=== PATIENT | female | born 1950 | race Caucasian/White ===

== ENCOUNTER 2024-08-01 08:58 | Day surgery (SDC) | payer MEDICARE, SELFPAY ==
[2024-08-01] VITALS (10 sets, daily range): BP systolic 113–183; BP diastolic 56–86; BMI 38.0
[2024-08-01 09:40] LABS: Hematocrit 43.8 % (37.0-47.0); Hemoglobin 15.1 g/dL (12.0-16.0); Mean Corp Hgb Conc. 34.5 g/dL (33.0-37.0); Mean Corpuscular Hgb 28.9 pg (27.0-31.0); Mean Corpuscular Volume 83.7 fL (81.0-99.0); Mean Platelet Volume 10.5 fL (7.4-10.4); Platelet Count 289 10^3/uL (130-400); Red Blood Cell Count 5.23 10^6/uL (4.20-5.40); Red Cell Dist. Width 12.7 % (11.5-14.5); White Blood Cell Count 12.1 10^3/uL (4.8-10.8)
[2024-08-01 09:55] LABS: Glucose - Point of Care 207 mg/dl (70-99)
[2024-08-01 10:17] LABS: Blood Urea Nitrogen 16 mg/dl (7-17); Calcium 10.3 mg/dl (8.4-10.2); Carbon Dioxide 22 mmol/L (22-30); Chloride 104 mmol/L (98-107); Estimated Creatinine Clearance 80 ml/min; Glucose 254 mg/dl (70-99); Potassium 4.7 mmol/L (3.5-5.1); Sodium 137 mmol/L (135-145); eGFR > 60.00
[2024-08-01] MEDS: LOW STRENGTH ASPIRIN 324 MG PO (12:40)
[2024-08-01 13:41] LABS: ACT-LR - POC 231 Seconds (116-155)
[2024-08-01 14:06] LABS: Glucose - Point of Care 186 mg/dl (70-99)
--- NOTE | 2024-08-01 15:20 | ITS.CL.CATH ---
Fire Safety Director - Catheterization
Cardiac Catheterization
Procedure Report:
LEFT HEART CATHETERIZATION
Date of Procedure: August 01, 2024
Referring: Ken Tate
PROCEDURES:
1. Left heart catheterization, coronary angiogram.
2. Moderate sedation.
3. Functional physiologic testing using IFR of proximal to mid LAD
INDICATION: Abnormal Stress Test
ACCESS: Right radial artery, 6Fr. sheath, under US guidance.
HEMODYNAMICS : (mmHg)
AO (s/d) : 149/71
LVEDP : 23
Upon catheter pullback, invasive mean transaortic gradient is estimated at 36 mmHg, concerning for possible moderate aortic stenosis.
CORONARY FINDINGS
Dominance: Right
Left Main Trunk (LMT): Large caliber vessel that gives rise to the LAD and LCx branches and is free of angiographic disease.
Left Anterior Descending Artery (LAD): Large caliber vessel that gives off 1 major diagonal branch as it courses along the anterior inter-ventricular groove before wrapping around the cardiac apex. Proximal to mid LAD has diffusely heavily
calcified 50% stenosis with focal eccentric napkin ring lesion in mid portion with iFR positve at 0.82. Distal LAD has 70% stenosis.
Left Circumflex Artery (LCx): Medium caliber vessel that gives off two major obtuse marginal (OM) branches as it courses along the atrio-ventricular (AV) groove. OM1 is a very small caliber vessel. Proximal LCx has eccentric 70% stenosis and
distal LCX into OM2 has 90% stenosis with good distal target.
Right Coronary Artery (RCA): Large caliber dominant vessel that gives rise to the posterior descending artery (RPDA) and postero-lateral ventricular (RPLV) branches distally. Moderately tortuous RCA with 75-80% proximal RCA stenosis and long
tubular 60-70% stenosis in distal portion.
HEMODYNAMIC ASSESSMENT OF THE prox to mid LAD WITH A Newsle OMNI WIRE: The origin of the LCA was cannulated with a 6 Fr EBU 3.5 guide catheter. Intravenous heparin was administered and the ACT was followed during the procedure. Two hundred
micrograms of intracoronary nitroglycerin was given through the guide catheter. A Utterz Omni wire was advanced to the guide catheter tip and normalized just outside the guide catheter. The Omni wire was then carefully manipulated across the
stenosis in the prox to mid LAD with the iFR bwlow the ischemic threshold serially measuring 0.82, 0.83, 0.83. The Omni wire was then pulled back to the guide catheter where the Pd/Pa measured 1.0 confirming no baseline drift in pressure readings.
SEDATION: 47 minutes of procedural sedation was utilized. IV Midazolam and IV Fentanyl were administered. An independent medical equipment technician was present to assist with and help manage the patient's level of consciousness and physiologic status.
RADIATION SUMMARY: Fluoro Time (min): 4.7, Dose (mGy): 424, DAP (Gy.cm2) : 21.1
Closure Device: There were no immediate intra-procedural complications. The sheath was pulled in the laboratory sample carrier and a vascular-band applied to the right wrist for radial artery hemostasis using the patent hemostasis technique.
CONCLUSIONS
1. Multivessel CAD with iFR positive LAD.
2. Elevated LVEDP.
RECOMMENDATIONS
1. Wean radial band per protocol. Monitor right hand perfusion and for bleeding from the radial site following removal of the vascular-band following trans-radial access.
2. Continue aggressive medical therapy and risk factor modification for secondary CAD prevention.
3. Hydrate with normal saline to mitigate the risk of contrast-induced acute kidney injury.
4. CT surgery consult with consideration of CABG to LAD, D1, OM2, RPDA and RPL.
5. Follow-up with Dr. Ken Tate as outpatient.
Copy to: Ken Tate
Fela Farias MD, [facility], [facility]
[2024-08-01] MEDS: LASIX 20 MG IV (16:37)
== END 2024-08-01 17:23 | disposition home or self-care (01) ==
LOC: CATH 08:58
PROVIDERS: ATTENDING PHYSICIAN Internal Medicine Interventional Cardiology; FAMILY PHYSICIAN Internal Medicine; OTHER PHYSICIAN Internal Medicine Cardiovascular Disease
DX: I25.10 Atherosclerotic heart disease of native coronary artery without angina pectoris (principal); Z79.4 Long term (current) use of insulin; Z79.890 Hormone replacement therapy; Z79.82 Long term (current) use of aspirin; Z79.899 Other long term (current) drug therapy; E11.9 Type 2 diabetes mellitus without complications
CPT/HCPCS: 93799; 99152; 99153; 80048; 82962; 85027; 85347; 93005; 93458; C1769; C1894; Q9967

== ENCOUNTER 2024-09-03 09:54 | Inpatient (IN) | payer MEDICARE, SELFPAY ==
[2024-09-03] VITALS (8 sets, daily range): BP systolic 109–142; BP diastolic 41–77; BMI 39.2
--- NOTE | 2024-09-03 11:14 | HPS.HSE ---
Addendum entered and electronically signed by Nomi Farias MD 09/03/24 14:01:
I have personally supervised the history, physical exam, medical decision-making, and care plan for this patient in conjunction with the resident. I have reviewed and discussed the resident�s documentation and findings. I confirm that this note
accurately reflects my supervision and input in the care of this patient.
74-year-old female with extensive past medical history who has been running from transfer from [facility]. Patient with extensive cardiac history who presented to outside hospital with chest pain and was started on nitroglycerin
and heparin infusion. Patient remained with persistent chest pain. Patient was transferred over here for further aggressive medical management for possible CABG with aortic valve replacement versus high risk PCI. Patient is currently sitting in
chair. Patient remains on nitroglycerin drip. Patient remains with persistent chest pain. States 4 out of 10. Left substernal. No aggravating or alleviating factor. Denies any shortness of breath. Denies any PND orthopnea.
General: Well Developed, Well Nourished, No Apparent Distress and Comfortable, morbidly obese
Respiratory: Clear
Cardiac: S1/S2, Regular Rhythm and Murmur
GI: Soft, Non Tender, Non Distended and Normal Bowel Sounds
Musculoskeletal: No Clubbing and No Cyanosis
Skin: Warm and Dry
Neuro: Awake, Alert, Oriented and AO x 3
Psych: Calm
Impression
NSTEMI
Multivessel CAD
Diabetes mellitus on insulin pump
Hyperlipidemia
Primary hypertension
Aortic stenosis
Endometrial and uterine cancer status post hysterectomy
RATNA on CPAP
Morbid obesity due to excess calorie affects all aspects of medical care
Mild hyponatremia
Plan
Continue with nitroglycerin and heparin infusion for now
Morphine trial for additional pain control if needed
Continue with aspirin and Lipitor
Continue with beta-roman
Hold losartan if with significant contrast exposure for additional imaging for preop testing
Continue with beta-roman
Check lipid panel and A1c
Check urine studies and serum also
Cardiology and CT surgery evaluation
Diabetic nurse practitioner evaluation has on insulin pump
DVT prophylaxis on heparin infusion
I spent a total of 80 minutes with the patient or on the floor. More than 50% of this time involved counseling and coordination of care.
Original Note:
Family Physician
-
Family Physician: INTERVIEWE UNKNOWN - PT NOT
Chief Complaint
-
Chest pain
History of Present Illness
This is a 74-year-old female with past medical history of diabetes, hypertension, dyslipidemia, aortic stenosis, vasovagal syncope, asthma, endometrial and uterine cancer s/p hysterectomy 2002, multivessel CAD with IFR positive LAD, hypothyroidism,
obstructive sleep apnea on CPAP who presents as a transfer from [facility] with ongoing chest pain. History obtained from patient at bedside and from transfer records.
The patient reports that her chest pain started yesterday(09/02) morning. She was scheduled to get a Chest CT scan yesterday as part of her evaluation for valve replacement, and took prednisone tab the day prior. In the AM yesterday, she experienced
a sharp chest pain. Chest pain was radiating to her neck, was intermittent initially but gradually worsened and stayed persistent. She contacted her CT surgeons office and supervisor farm equipment maintenance due to the pain and she was advised to go to come to for
evaluation. Ambulance services took patient to [facility] due to closer proximity.
Pertaining to her history, the patient had a cardiac catheterization on 08/01/2024 for reported multivessel CAD with IFR positive LAD. She was further evaluated outpatient by CT surgery Dr. Malloy for AVR and CABG which was initially scheduled for
September 16.
At [facility], she was started on nitro drip, heparin drip, and continued on home aspirin 81 mg oral daily, atorvastatin 80 mg, levothyroxine 50 mcg. Her metoprolol dosage was switched from 25 mg oral daily to 12.5 mg twice daily.
She was transferred to [facility] this morning.
At bedside today, the patient admits chest pain currently ongoing. Rates the pain as a 4 out of 10 that does not radiate anywhere else. She admits to mild fatigue. Denies lightheadedness, syncope, palpitation.
Medical History
Past Medical History
Past Medical History: Reports Other
Additional Past Medical History:
Neck and back pain, neuropathy, asthma, RATNA/CPAP, hypertension, constipation, IBS, laryngeal pharyngeal reflux, recurrent UTIs, osteoarthritis, type 1 diabetes mellitus, hypothyroidism, cataracts, partial vitreous detachment with neovascularization
on the right, endometrial and uterine cancer s/p hysterectomy 2002, multivessel CAD with IFR positive LAD, hyperlipidemia, aortic stenosis, vasovagal syncope, gastroenteritis
Past Surgical History: Reports Other (Hysterectomy, umbilical hernia repair, removal of right parotid tumor, removal of growths in the ear, sinus surgery)
Social History
Tobacco: Non-smoker
Alcohol: Occasional
Drug: None
Living: Alone
Family History
Family History: Other (Father, 75 years, CVA, aneurysms. Mother 83 years, A-fib, heart disease)
Allergies / Home Medications
Allergies reflects when Allergies were last updated in [facility].
Home Medications with original date entered in [facility]
Allergy/Medication List:
Allergies
Allergy/AdvReac Type Severity Reaction Status Date / Time
Cephalosporins Allergy Severe Swelling Verified 08/01/24 10:07
Iodinated Contrast Media Allergy Severe Shortness Verified 08/01/24 10:07
of Breath
adhesive Allergy Intermediate Rash Verified 08/01/24 10:07
phenobarbital Allergy Unknown Unknown Verified 08/01/24 10:07
codeine Allergy Unknown Verified 08/01/24 10:07
insulin lispro (From Humalog Allergy Rash Verified 08/01/24 10:07
U-100 Insulin)
shellfish derived Allergy Unknown Verified 08/01/24 10:07
diphenhydramine (From AdvReac TACHYCARDIA Verified 08/01/24 10:07
Benadryl)
Home Medications
aspirin 81 mg tablet,delayed release 81 mg PO DAILY 08/01/24
atorvastatin 80 mg tablet (Lipitor) 80 mg PO HS #30 tabs 08/01/24
cetirizine 10 mg tablet (Zyrtec) 10 mg PO DAILY PRN ALLERGIES 08/01/24
insulin aspart (B3)(U-100) 100 unit/mL (1.6 mL) subcut pump cartridge (Fiasp Pumpcart) 1 sliding scale dose SC DIRECTED 08/01/24
levothyroxine 25 mcg tablet 25 mcg PO DAILY 08/01/24
losartan 25 mg tablet 100 mg PO DAILY 08/01/24
metoprolol succinate 25 mg tablet,extended release 24 hr (Toprol XL) 25 mg PO DAILY #30 tabs 08/01/24
montelukast 10 mg tablet 10 mg PO DAILY 08/01/24
pantoprazole 40 mg tablet,delayed release 40 mg PO DAILY 08/01/24
potassium chloride 10 mEq tablet,extended release (Klor-Con) 10 meq PO DAILY 08/01/24
Review of Systems
-
History Source: Patient
A 12 point ROS was completed and negative except as noted: Yes
Constitutional: Reports See HPI
Respiratory: Reports No Symptoms
Cardiac: Reports Chest Pain
Abdomen/GI: Reports No Symptoms
: Reports No Symptoms
Musculoskeletal: Reports No Symptoms
Skin: Reports No Symptoms
Neurological: Reports No Symptoms
Endocrine: Reports No Symptoms
Physical Exam
Vital Signs
Vital Signs
Temp Resp Pulse Ox
98.1 F 15 97
09/03/24 10:20 09/03/24 10:20 09/03/24 10:20
Physical Exam
General: Well Developed, Well Nourished, No Apparent Distress and Comfortable
Respiratory: Clear
Cardiac: S1/S2, Regular Rhythm and Murmur (3/6 systolic ejection murmur)
GI: Soft, Non Tender, Non Distended and Normal Bowel Sounds
Musculoskeletal: No Clubbing and No Cyanosis
Skin: Warm and Dry
Neuro: Awake, Alert, Oriented and AO x 3
Psych: Calm
Impression/Plan
-
Assessment/plan
#Chest pain with concern for NSTEMI
-Presented as a transfer from [facility] with ACS and for CABG/valve replacement
-Currently on nitro drip with goal to make chest pain-free for AVR/CABG. Continue Nitroglycerin
-If cannot be chest pain-free, consider CAD/PCI
-Cardiology consulted for ischemic evaluation
-CT surgery consulted
-Check EKG, trops
-CXR
-Continue IV heparin for now
-Continue metoprolol, ASA daily, high intensity statin
#CAD s/p [facility] with multivessel CAD with IFR positive LAD, confirmed three-vessel disease
-CT surgery consulted for CABG to LAD
-Continue aspirin, high intensity statin
#Aortic stenosis
Echocardiogram 07/31/2024 with LVEF 55�60% with no obvious segmental abnormalities, aortic valve trileaflet with moderate stenosis with peak/mean gradients of 37/22 mmHg.
For possible valve replacement this admission
#Hypertension
-Continue on beta-roman
-Hold losartan
#Type 1 diabetes mellitus
-Continue on insulin pump
-Update A1c
-Consult DM GYROSCOPE TECHNICIAN
#Hyperlipidemia
-Continue high intensity statin, atorvastatin 80 mg
-LDL goal < 55
#Obstructive sleep apnea
-Continue nightly CPAP
#Asthma
-No acute exacerbation
-Continue home montelukast
-Continue to monitor
#GERD
-Continue pantoprazole
#Hypothyroidism
-Continue with levothyroxine
CODE STATUS; full code
DVT prophylaxis; heparin GGT
[2024-09-03 12:22] LABS: Glucose - Point of Care 113 mg/dl (70-99)
[2024-09-03 13:01] LABS: Hematocrit 35.3 % (37.0-47.0); Hemoglobin 12.1 g/dL (12.0-16.0); Mean Corp Hgb Conc. 34.3 g/dL (33.0-37.0); Mean Corpuscular Volume 86.1 fL (81.0-99.0); Platelet Count 250 10^3/uL (130-400); Red Cell Dist. Width 13.2 % (11.5-14.5)
--- NOTE | 2024-09-03 13:16 | PN.DE.MGMTRT ---
Insulin Management
- -
09/03/2024 Diabetes Management Consult
Patient transferred from [facility] 09/03 with CP. PMH multivessel CAD, hypothyroid, sleep apnea with cpap, asthma, endometrial & uterine CA, HTN, HCL diabetes, aortic stenosis, vasovagal syncope. Prior to admission using the
tandem tslim pump with G6 CGM and novolog insulin. She was prescribed Brenzavvy but stopped 3 days ago. Also was prescribed invokanna and Victoza in the past but stopped due to cost. A1c is pending.
Patient is awake alert and oriented oob in chair. Able to discuss diabetes care. States she has had diabetes 50+ years, sees endocrine, CHASER TAR at [facility] for ongoing care. Glucose 113 on admission.
Patient is able to manage insulin pump, will take corrections and meal bolus as needed.
Pump settings:
basal 1.7 units/hour, 24 hour basal total 41.04
Carb ratio 5.5
Sensitivity 21
Target 110
Active insulin 5 hours.
Discussed with nurse.
Will follow.
Diabetes History
- -
Type of Diabetes: 1
Pre-Admission Diabetes Regimen
Insulin Pump Settings
IP Diabetes Regimen
09/03/24
12:20
POC Glucose 113 H
Meal type: Breakfast
Patient Education
[2024-09-03 13:19] LABS: APTT 32.5 Sec (23.4-35.0); INR 1.04; PT 14.1 Sec (11.4-14.6)
[2024-09-03] MEDS: LOPRESSOR 2.5 MG IV (13:22)
[2024-09-03 13:26] LABS: Troponin I 0.303 ng/ml
[2024-09-03] MEDS: MORPHINE SULFATE 2 MG IV (13:26)
[2024-09-03 13:35] LABS: ALT (SGPT) 17 U/L (0-35); AST (SGOT) 21 U/L (14-36); Albumin 3.5 g/dl (3.5-5.0); Alkaline Phosphatase 66 U/L (38-126); Blood Urea Nitrogen 14 mg/dl (7-17); Calcium 8.6 mg/dl (8.4-10.2); Carbon Dioxide 25 mmol/L (22-30); Chloride 100 mmol/L (98-107); Estimated Creatinine Clearance 95 ml/min; Glucose 120 mg/dl (70-99); HDL Cholesterol 35 mg/dl; LDL Cholesterol, Calculated 13 mg/dl; Magnesium 1.9 mg/dl (1.6-2.3); Potassium 3.8 mmol/L (3.5-5.1); Sodium 130 mmol/L (135-145); Total Protein 5.4 g/dl (6.3-8.2); Very Low Density Lipoprotein 26 mg/dl (0-30); eGFR > 60.00
[2024-09-03] MEDS: PT'S OWN INSULIN PUMP - NovoLOG SC (13:40)
--- NOTE | 2024-09-03 13:53 | CON.CAR ---
Addendum entered and electronically signed by Seng Chun MD 09/03/24 17:39:
74-year-old woman followed by Dr. Ken Tate of [facility] who underwent recent cardiac catheterization showing moderate to severe aortic stenosis and three-vessel CAD, undergoing CT surgical evaluation but admitted to [facility] with recurrent
chest pain and transferred for further evaluation.
PMH: Diabetes, history of vagal syncope, aortic stenosis, CAD, hypothyroidism, hyperlipidemia, GERD, hypertension
Medications in hospital: IV heparin, IV nitro, potassium 10 mEq daily, Protonix, Montelukast, levothyroxine, atorvastatin 80 mg a day, aspirin 81 mg daily, metoprolol ER 12.5 twice daily, insulin pump, IV nitroglycerin
Rest of history as below per Arabella Gonzales. Reviewed in detail and agree, unless otherwise specified
130/80, pulse 72, afebrile, chest x-ray uncoiled aorta, osteoporosis, head neck exam unremarkable, lungs are clear, aortic stenosis murmur radiating to carotids, abdomen benign extremities without clubbing cyanosis or edema
ECG: Nonspecific T wave changes left axis consider lateral ischemia, LVH, poor R wave progression,
White count 15.5, hemoglobin 12.1, BUN and creatinine 14 and 0.6, sodium 130, troponin 0.3, proBNP 685
Cardiac cath 07/2024: Proximal to mid 50% LAD, IFR +0.82, distal LAD 70%, proximal circumflex with eccentric 70% stenosis, distal circumflex and OM2 90%, dominant RCA 75 to 80% proximal, 60 to 70% tubular and long distally, mean aortic valve gradient
36 mmHg
Impression:
NSTEMI
Three-vessel CAD
Moderate to severe aortic stenosis
Type 1 diabetes, with insulin pump
Peripheral neuropathy
Hypertension
Hyperlipidemia
History of presumed vagal syncope
Long COVID,
GERD
IBS
Asthma
Plan:
She returns now with an acute coronary syndrome/non-STEMI in the setting of known three-vessel disease and moderate to severe aortic stenosis.
Current strategy is one of the medical stabilization before proceeding to operating room.
Will uptitrate beta-roman and continue IV nitroglycerin and heparin.
Await completion of evaluation by CT surgery and timing of CABG/AVR.
Original Note:
Consultation
Consultation Request
Date/Time Consultation Performed: 09/03/24
Requesting Provider: Dr. Malloy
Performing Provider: Arabella Gonzales PA-C for Dr. CHARLES Chun
Reason for Consultation: CP, CABG/AVR
Medical History
-
Chief Complaint: CP
History of Present Illness:
Patient is a 74-year-old female with past medical history of type 1 diabetes, asthma, hypertension, hyperlipidemia, aortic stenosis, IBS, long COVID, who had syncopal episode at an [employer] 05/2024. She was taken to [facility] ER and was
found to have vasovagal syncope and was discharged but asked to follow-up with cardiology due to persistently feeling fatigued and worn out. She was ordered Lexiscan stress test and during test had significant chest tightness/squeezing. She then
underwent cardiac catheterization 08/01/2024 which showed multivessel coronary disease including LAD, circumflex, RCA and was referred to CT surgery. She is tentatively scheduled for CABG/AVR on 09/16/2024, however has been noting intermittent chest
discomfort similar to that which she experienced during her stress testing, normally lasting somewhere in the 5 to 10-minute range and abating on its own. Yesterday she reports she had ate breakfast and the pain began, however was not going away.
She took 4 chewable baby aspirin and was given nitro x 2 with improvement in the pain, however no resolution. Initial troponin negative. She was started on IV heparin and IV nitroglycerin drip, and after discussion with CT surgery, was transferred
to [facility] today for urgent SAVR/CABG eval.
PMH:
Multivessel CAD
Aortic stenosis
Type 1 diabetes, with insulin pump
Peripheral neuropathy
Hypertension
Hyperlipidemia
History of syncopal episode 05/2024
Asthma
IBS
Long COVID
Laryngopharyngeal reflux
Parotid tumor status postresection
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
Past Medical History
Past Medical History: Other (in HPI)
Social History
Tobacco: Non-Smoker
Alcohol: None
Living: Alone
Employment: Retired
Family History
Family History: CAD, Cancer and Diabetes
Allergies / Home Medications
Allergy/AdvReac Type Severity Reaction Status Date / Time
Cephalosporins Allergy Severe Swelling Verified 08/01/24 10:07
Iodinated Contrast Media Allergy Severe Shortness Verified 08/01/24 10:07
of Breath
adhesive Allergy Intermediate Rash Verified 08/01/24 10:07
phenobarbital Allergy Unknown Unknown Verified 08/01/24 10:07
codeine Allergy Unknown Verified 08/01/24 10:07
insulin lispro (From Humalog Allergy Rash Verified 08/01/24 10:07
U-100 Insulin)
shellfish derived Allergy Unknown Verified 08/01/24 10:07
diphenhydramine (From AdvReac TACHYCARDIA Verified 08/01/24 10:07
Benadryl)
�Medication �Instructions �Recorded �Confirmed �Type
aspirin 81 mg tablet,delayed 81 mg PO DAILY 08/01/24 09/03/24 History
release
atorvastatin 80 mg tablet (Lipitor) 80 mg PO HS #30 tabs 08/01/24 09/03/24 Rx
cetirizine 10 mg tablet (Zyrtec) 10 mg PO DAILY PRN ALLERGIES 08/01/24 09/03/24 History
levothyroxine 25 mcg tablet 50 mcg PO DAILY 08/01/24 09/03/24 History
losartan 25 mg tablet 100 mg PO DAILY 08/01/24 09/03/24 History
metoprolol succinate 25 mg 25 mg PO DAILY #30 tabs 08/01/24 09/03/24 Rx
tablet,extended release 24 hr
(Toprol XL)
montelukast 10 mg tablet 10 mg PO DAILY 08/01/24 09/03/24 History
pantoprazole 40 mg tablet,delayed 40 mg PO DAILY 08/01/24 09/03/24 History
release
potassium chloride 10 mEq 10 meq PO DAILY 08/01/24 09/03/24 History
tablet,extended release (Klor-Con)
Multi Vitamin 1 tab PO DAILY 09/03/24 09/03/24 History
bexagliflozin 20 mg tablet 20 mg PO DAILY 09/03/24 09/03/24 History
(Brenzavvy)
cholecalciferol (vitamin D3) 25 25 mcg PO DAILY 09/03/24 09/03/24 History
mcg (1,000 unit) tablet (Vitamin
D3)
insulin aspart U-100 100 unit/mL 1 sliding scale dose SC DIRECTED 09/03/24 09/03/24 History
subcutaneous cartridge
vitamin E 400 unit tablet 45 mg PO DAILY 09/03/24 09/03/24 History
Review of Systems
-
History Source: Patient
All other systems: Negative unless noted
Physical Exam
Vital Signs
Temp Resp Pulse Ox
98.1 F 15 97
09/03/24 10:20 09/03/24 10:20 09/03/24 10:20
Lab Results
09/03/24 12:42
09/03/24 12:42
Troponin I 0.303 ng/ml H* 09/03/24 12:42
Grb-C-Ailbsioraqo Pept 685 pg/ml 09/03/24 12:42
Physical Exam
General: No Apparent Distress, Comfortable and Other (obese)
HEENT: Normocephalic, Anicteric and Moist Mucous Membranes
Respiratory: Clear and Non Labored Respirations
Cardiac: S1/S2, Regular Rhythm and Murmur
GI: Soft, Non Tender, Non Distended and Normal Bowel Sounds
Musculoskeletal: No Clubbing, No Cyanosis and No Edema
Skin: Warm and Dry
Neuro: AO x 3
Impression / Plan
-
Primary Countersinker Balance Screw Hole: Dr. Tate of [facility]
Assessment:
CP
Multivessel CAD
Aortic stenosis
Type 1 diabetes
Peripheral neuropathy
Hypertension
Hyperlipidemia
History of syncopal episode 05/2024
Asthma
IBS
Long COVID
Laryngopharyngeal reflux
Parotid tumor status postresection
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
Hypothyroidism
OA
Echo 07/31/2024: EF 55 to 60%, mild concentric LVH, mild left atrial enlargement, mild MAC, moderate aortic stenosis with peak/mean gradients 37/22 mmHg, ALEXANDRA 1.1 cm�, mild mitral, tricuspid, aortic, pulmonic insufficiency, grade 1 diastolic
dysfunction, PASP 20 millimeters mercury
Plan:
- Patient with planned SAVR/CABG on 09/16/2024 presented yesterday to [facility] with complaints of chest pain. Transferred today to [facility] for evaluation for urgent SAVR/CABG
- Currently on IV nitro gtt. at 30 and IV heparin. Called to see patient urgently as she reported 3-4 out of 10 chest pain on arrival. Was given IV morphine with some improvement to 2/10, however states discomfort not fully resolved. does not
appear overtly uncomfortable or ill appearing
- reviewed available records from [facility]
- CXR without clear effusions or PNA
- BPs stable. avoid hypotension in setting of known
- Troponin here 0.3, trend to peak
- EKG SR with LVH, prior EKG reports from [facility] without acute ST-T wave changes noted
- for SAVR CT scan and additional preop testing in expedited manner
- d/w CT surgical team, timing of urgent CABG/SAVR to be determined as patient symptoms and surgeon schedule allows
- continue asa, statin, toprol. holding losartan in prep for surgery and as on IV nitro
- d/w nursing
Data Reviewed
-
EKG: Report Reviewed by me
Radiology: Report Reviewed by me
Medical Tests (Nuc Med, Echo etc): Report Reviewed by me
Labs: Labs Reviewed by me
Old Records: Requested and Reviewed
[2024-09-03 14:31] LABS: Glycohemoglobin (HgbA1c) 6.9 % (4.0-5.6)
[2024-09-03] MEDS: SOLU-CORTEF 100 MG IV (14:54)
[2024-09-03] MEDS: VENTOLIN NEBULES 2.5 MG INH (15:08)
--- NOTE | 2024-09-03 16:43 | W.PN.UPDATE ---
Update Note
Progress Note Update
STS RISK SCORE
Procedure Type:�CABG + AVR
Perioperative Outcome Estimate %
Operative Mortality 4.33%
Morbidity & Mortality 19.7%
Stroke 2.88%
Renal Failure 4.26%
Reoperation 3.97%
Prolonged Ventilation 13.1%
Deep Sternal Wound Infection 0.522%
Long Hospital Stay (>14 days) 12.8%
Short Hospital Stay (<6 days)* 16.7%
Clinical Summary
Planned Surgery: CABG + AVR, Urgent, First cardiovascular surgery
Demographics: 74 year old, female, 103kg, 163cm, BMI: 38.8 kg/m�
Lab Values: Creatinine: 0.6 mg/dL, Hematocrit: 35.3%, WBC Count: 15.5 10�/�L, Platelet Count: 709529 cells/�L
PreOp Medications: Oral diabetes control
Substance Abuse: Never smoker, Alcohol use: <=1 drink/week
Risk Factors / Comorbidities: Diabetes Mellitus , Hypertension, Family Hx of CAD
Cardiac Status: NYHA Class II, Ejection Fraction = 71%
Coronary Artery Disease: 3 vessels diseased, Unstable Angina
Valve Disease: Aortic Stenosis, Mild AR, Mild MR, Mild TR
--- NOTE | 2024-09-03 16:55 | W.PN.UPDATE ---
Addendum entered and electronically signed by Aleksandra Hsu PA-C 09/04/24 07:25:
correction to below--planned OR date is for WEDNESDAY 09/06
Addendum entered and electronically signed by Juan Diego Malloy MD 09/04/24 06:25:
I saw and examined the patient.
The PA's note was reviewed and I agree with the note.
Comment:
CARDIAC SURGERY ATTENDING:
I spoke once again with Mrs. Tana Knutson. She is very well-known to me after outpatient office evaluation and plans for AVR and CABG. Her hospital course has been reviewed. Aside from the inability to obtain a Panorex/dental clearance, her
preop workup has been completed. I have tentatively scheduled her for surgical intervention on 09/07/2024. Will continue to follow closely.
Thank you.
Juan Diego Malloy MD
[phone]
Original Note:
Update Note
Progress Note Update
STS RISK SCORE
Procedure Type:�CABG + AVR
Perioperative Outcome Estimate %
Operative Mortality 4.33%
Morbidity & Mortality 19.7%
Stroke 2.88%
Renal Failure 4.26%
Reoperation 3.97%
Prolonged Ventilation 13.1%
Deep Sternal Wound Infection 0.522%
Long Hospital Stay (>14 days) 12.8%
Short Hospital Stay (<6 days)* 16.7%
Clinical Summary
Planned Surgery: CABG + AVR, Urgent, First cardiovascular surgery
Demographics: 74 year old, female, 103kg, 163cm, BMI: 38.8 kg/m�
Lab Values: Creatinine: 0.6 mg/dL, Hematocrit: 35.3%, WBC Count: 15.5 10�/�L, Platelet Count: 114276 cells/�L
PreOp Medications: Oral diabetes control
Substance Abuse: Never smoker, Alcohol use: <=1 drink/week
Risk Factors / Comorbidities: Diabetes Mellitus , Hypertension, Family Hx of CAD
Cardiac Status: NYHA Class II, Ejection Fraction = 71%
Coronary Artery Disease: 3 vessels diseased, Unstable Angina
Valve Disease: Aortic Stenosis, Mild AR, Mild MR, Mild TR
[2024-09-03 17:40] LABS: Glucose - Point of Care 174 mg/dl (70-99)
[2024-09-03 17:59] LABS: Urine Character Clear (Clear)
[2024-09-03 18:23] LABS: Urine Urothelial Cell 0-2 /LPF (FEW)
[2024-09-03 18:24] LABS: Urine Red Blood Cell 0-2 /HPF (0-2)
--- NOTE | 2024-09-03 18:32 | PTCARENOTE ---
Pt admit as transfer from [facility], A,A+Ox3, c/o chest pain (midsternal rad to neck) that was 6/10 and then 5/10. Pt on ntg and heparin drips. Orders obtained for both. Ntg titrated up gradually to 30 mcg/min. Pt's chest pain down to
3/10. Pt was also med with morphine 2 mg IV as ordered with relief from neck pain. Pt also reported that pain is positional. Dr Chun and Dr. Malloy aware. Pt went for U/S today and CT chest. She was premedicated with Solucortef 100 mg IV, approx [address] scan for allergy to contrast media. Pt resting comfortably at present. She has her own insulin pump, childbirth educator and SLAT PICKLER, Lydai Roque aware and came to see Pt. Pt has worksheet at bedside.
[2024-09-03] MEDS: PT'S OWN INSULIN PUMP - NovoLOG 14.7 UNIT SC (18:42)
[2024-09-03] MEDS: LOPRESSOR 12.5 MG PO ×2 (18:44→23:37)
[2024-09-03 20:03] LABS: APTT 62.4 Sec (23.4-35.0)
--- NOTE | 2024-09-03 21:40 | PTCARENOTE ---
Received pt @ change of shift. AAOx3, VSS-- NSR on monitor. Pt c/o 02/15 CP @ this time. Also states being extremely tired. Nitro gtt running @ 30 mcg/kg/hr (4.5 mL/hr) and heparin gtt running @ 1200 units/hr, both through right forearm. Discussed
plan of care with pt. Pt verbalizes understanding. Call jones within reach.
[2024-09-03] MEDS: LIPITOR 80 MG PO (22:08)
[2024-09-03 22:09] LABS: Glucose - Point of Care 171 mg/dl (70-99)
[2024-09-03] MEDS: PT'S OWN INSULIN PUMP - NovoLOG 0.93 UNIT SC (22:10)
[2024-09-04] VITALS (8 sets, daily range): BP systolic 130–149; BP diastolic 49–120; BMI 37.5
[2024-09-04 03:45] LABS: Hematocrit 34.5 % (37.0-47.0); Hemoglobin 12.0 g/dL (12.0-16.0); Mean Corp Hgb Conc. 34.8 g/dL (33.0-37.0); Mean Corpuscular Volume 84.1 fL (81.0-99.0); Platelet Count 239 10^3/uL (130-400); Red Cell Dist. Width 13.2 % (11.5-14.5)
[2024-09-04 04:07] LABS: ALT (SGPT) 17 U/L (0-35); AST (SGOT) 19 U/L (14-36); Albumin 3.5 g/dl (3.5-5.0); Alkaline Phosphatase 61 U/L (38-126); Blood Urea Nitrogen 14 mg/dl (7-17); Calcium 9.0 mg/dl (8.4-10.2); Carbon Dioxide 23 mmol/L (22-30); Chloride 101 mmol/L (98-107); Estimated Creatinine Clearance 95 ml/min; Glucose 144 mg/dl (70-99); Magnesium 2.1 mg/dl (1.6-2.3); Potassium 4.3 mmol/L (3.5-5.1); Sodium 130 mmol/L (135-145); Total Protein 5.4 g/dl (6.3-8.2); eGFR > 60.00
[2024-09-04 04:09] LABS: APTT 122.7 Sec (23.4-35.0)
[2024-09-04] MEDS: SYNTHROID 50 MCG PO (06:46)
[2024-09-04] MEDS: HEPARIN 25000 UNITS/250 ML IV (06:46)
[2024-09-04] MEDS: LOPRESSOR 12.5 MG PO ×4 (06:52→23:01)
[2024-09-04 07:11] LABS: Glucose - Point of Care 129 mg/dl (70-99)
--- NOTE | 2024-09-04 08:06 | PN.DE.MGMTRT ---
Insulin Management
- -
09/04/2024 Diabetes Management Consult Follow up
Patient transferred from [facility] 09/03 with CP. PMH multivessel CAD, hypothyroid, sleep apnea with cpap, asthma, endometrial & uterine CA, HTN, HCL diabetes, aortic stenosis, vasovagal syncope. Prior to admission using the
tandem tslim pump with G6 CGM and novolog insulin. She was prescribed Brenzavvy but stopped 3 days ago. Also was prescribed invokanna and Victoza in the past but stopped due to cost. A1c is pending.
Patient is awake alert and oriented oob in chair. Able to discuss diabetes care. States she has had diabetes 50+ years, sees endocrine, HEAT PUMP INSTALLER at [facility] for ongoing care. Glucose 113 on admission. Range yesterday 113 to 174.
Patient is able to manage insulin pump, will take corrections and meal bolus as needed. For OR 09/06.
Pump settings:
basal 1.7 units/hour, 24 hour basal total 41.04
Carb ratio 5.5
Sensitivity 21
Target 110
Active insulin 5 hours.
Discussed with nurse.
Will follow.
Diabetes History
- -
Type of Diabetes: 1
Pre-Admission Diabetes Regimen
09/03/24 09/04/24
12:42 03:32
Creatinine 0.6 0.6
Lab Results
Hemoglobin A1c 6.9 % (4.0-5.6) H 09/03/24 12:42
Insulin Pump Settings
IP Diabetes Regimen
09/03/24 09/03/24 09/03/24
12:20 12:42 17:39
Glucose 120 H
POC Glucose 113 H 174 H
09/03/24 09/04/24 09/04/24
22:08 03:32 07:10
Glucose 144 H
POC Glucose 171 H 129 H
Meal type: Breakfast
Patient Education
[2024-09-04] MEDS: PROTONIX 40 MG PO (09:18)
[2024-09-04] MEDS: ASPIR LOW (ENTERIC COATED) 81 MG PO (09:18)
[2024-09-04] MEDS: PT'S OWN INSULIN PUMP - NovoLOG 9.34 UNIT SC (09:20)
--- NOTE | 2024-09-04 09:38 | W.PN.CARDCBS ---
Addendum entered and electronically signed by Yasmani Lewis MD 09/04/24 12:04:
I saw and examined the patient.
The Top Edge Beveler's note was reviewed and I agree with the note.
Comment: Briefly, 74-year-old woman past medical history multivessel CAD and severe aortic stenosis who was planned for CABG/SAVR as an outpatient but developed substernal chest discomfort which brought her to the [place] emergency department for
evaluation earlier this week. Troponin was found to be mildly elevated 0.3 and subsequently down trended consistent with NSTEMI.
Chest pain-free this morning at the time of my evaluation -continue nitro drip and titrate as needed for recurrent discomfort
Maintaining sinus rhythm on telemetry
Appears euvolemic on exam
Continue medical management of CAD with aspirin/high intensity statin/beta-roman and heparin drip
Tentative plan for surgical revascularization later this week
Original Note:
Today's Communication / Plan
-
CP free
continue IV nitro, IV heparin, asa, statin, lopressor
for CABG/SAVR 09/06/24
Impression / Plan
-
Primary Offensive Coordinator: Dr. Tate of [facility]
Assessment:
CP
Multivessel CAD
Aortic stenosis
Type 1 diabetes
Peripheral neuropathy
Hypertension
Hyperlipidemia
History of syncopal episode 05/2024
Asthma
IBS
Long COVID
Laryngopharyngeal reflux
Parotid tumor status postresection
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
Hypothyroidism
OA
Echo 07/31/2024: EF 55 to 60%, mild concentric LVH, mild left atrial enlargement, mild MAC, moderate aortic stenosis with peak/mean gradients 37/22 mmHg, ALEXANDRA 1.1 cm�, mild mitral, tricuspid, aortic, pulmonic insufficiency, grade 1 diastolic
dysfunction, PASP 20 millimeters mercury
Plan:
- Patient with planned SAVR/CABG on 09/16/2024 presented yesterday to [facility] with complaints of chest pain. Transferred today to [facility] for evaluation for urgent SAVR/CABG
-CP free this morning
- Continue IV nitro gtt at 30 and IV heparin.
- CXR without clear effusions or PNA
- BPs stable. avoid hypotension in setting of known
- Troponin here 0.3, trend to peak
- planned for CABG/SAVR Monday09/06/24
- continue asa, statin, toprol. holding losartan in prep for surgery and as on IV nitro
- in SR on review of tele
- d/w nursing, CT surgery PA
Progress Note - Offensive Coordinator
Subjective
Date of Service: September 04, 2024
no CP, SOB
Objective
Labs:
09/04/24 03:32
09/04/24 03:32
Labs
Hgb 12.0 g/dL (12.0-16.0) 09/04/24 03:32
Hct 34.5 % (37.0-47.0) L 09/04/24 03:32
Plt Count 239 10^3/uL (130-400) 09/04/24 03:32
PT 14.1 Sec (11.4-14.6) 09/03/24 12:42
INR 1.04 09/03/24 12:42
APTT 122.7 Sec (23.4-35.0) H 09/04/24 03:32
Sodium 130 mmol/L (135-145) L 09/04/24 03:32
Potassium 4.3 mmol/L (3.5-5.1) 09/04/24 03:32
BUN 14 mg/dl (7-17) 09/04/24 03:32
Creatinine 0.6 mg/dL (0.6-1.0) 09/04/24 03:32
Glucose 144 mg/dl (70-99) H 09/04/24 03:32
Troponins
09/03/24
12:42
Troponin I 0.303 H*
Vital Signs and I&O:
Vital Signs
Temp Pulse Resp BP Pulse Ox
98.5 F 67 18 130/50 96
09/04/24 06:51 09/04/24 08:00 09/04/24 06:51 09/04/24 06:52 09/04/24 06:51
Vital Signs
Temp Pulse Resp BP Pulse Ox
98.5 F 67 18 130/50 96
09/04/24 06:51 09/04/24 08:00 09/04/24 06:51 09/04/24 06:52 09/04/24 06:51
Intake & Output
09/02/24 09/03/24 09/04/24 09/05/24
07:59 07:59 07:59 07:59
Intake Total 352 / 352
Output Total 150 / 150
Balance 202 / 202
Physical Exam
Physical Exam
GEN: No distress, awake, alert, oriented x3. obese
HEENT: supple, anicteric, mmm, eomi
LUNGS: CTA B/L, no wheezes/rales
CV: Reg, S1/S2, 2/6 syst LSB
ABD: soft, BS+, NT/ND
EXT: No cyanosis, clubbing, edema
NEURO: Gross non-focal
SKIN: Warm, pink, dry. No rash
--- NOTE | 2024-09-04 09:45 | PTCARENOTE ---
Patient standing at the side of the bed, ambulating in the room, denies any chest pain. IV heparin and NTG infusing per protocol. TT to Dr. Farias, will maintain NTG gtt at 30mcg/min and not taper as previously ordered to maintain present comfort
level.
--- NOTE | 2024-09-04 10:54 | CM ---
Chart reviewed. Patient is independent of ADLS, lives alone in a apartment 1st floor, 1 MARLIN, 0 DME. Patient going for CABG/AVR on 09/06/24. Reviewed preoperative instructions and restrictions, along with showering guidelines. Gave patient Cardiac
Surgery Book. Patient is agreeable to a home visit by CT Transitional RN. Patient is concerned about going home alone. Patient does have supportive siblings and nieces. Plan is for the patient to return home with CT Transitional RN. CM to
follow
[2024-09-04 11:36] LABS: APTT 94.4 Sec (23.4-35.0)
[2024-09-04 11:49] LABS: Troponin I 0.154 ng/ml
[2024-09-04 12:11] LABS: Glucose - Point of Care 138 mg/dl (70-99)
[2024-09-04] MEDS: DIFLUCAN 200 MG PO (12:46)
--- NOTE | 2024-09-04 13:08 | W.PN.HOSP.TC ---
Today's Communication/Plan
-
Continue with nitroglycerin drip
Continue with heparin infusion
Increase dose of beta-roman
Preop testing ongoing
Assessment / Plan
Assessment / Plan
General: Well Developed, Well Nourished, No Apparent Distress and Comfortable
Respiratory: Clear
Cardiac: S1/S2, Regular Rhythm and Murmur (+ murmur)
GI: Soft, Non Tender, Non Distended and Normal Bowel Sounds
Musculoskeletal: No Clubbing and No Cyanosis
Skin: Warm and Dry
Neuro: Awake, Alert, Oriented and AO x 3
Psych: Calm
#NSTEMI
#Multivessel CAD
-Presented as a transfer from [facility] with ACS and for CABG/valve replacement
-Currently on nitro drip with goal to make chest pain-free for AVR/CABG. Continue Nitroglycerin
-CXR-Hypoaerated lungs without consolidation.
-Continue metoprolol, ASA daily, high intensity statin
-Continue heparin gtt
-CTS following and pre-op testing started. Plan for tentative AVR/CABG later this week
#CAD s/p [facility] with multivessel CAD with IFR positive LAD, confirmed three-vessel disease
-CT surgery consulted for CABG to LAD
-Continue aspirin, high intensity statin
#Mild hyponatremia
- Check serum awesome and urine lites
- Not overtly volume overloaded.
#Aortic stenosis
Echocardiogram 07/31/2024 with LVEF 55�60% with no obvious segmental abnormalities, aortic valve trileaflet with moderate stenosis with peak/mean gradients of 37/22 mmHg.
For possible valve replacement this admission
#Hypertension
-Continue on beta-roman dose increased per cardiology
-Hold losartan
#Type 1 diabetes mellitus
-Continue on insulin pump
-Update A1c at 6.9
-Consult DM CAMPUS PRESIDENT
#Hyperlipidemia
-Continue high intensity statin, atorvastatin 80 mg
-LDL goal < 55
#Obstructive sleep apnea
-Continue nightly CPAP
#Asthma
-No acute exacerbation
-Continue home montelukast
-Continue to monitor
#GERD
-Continue pantoprazole
#Hypothyroidism
-Continue with levothyroxine
CODE STATUS; full code
DVT prophylaxis; heparin GGT
Anticipated Discharge: > 48 hours
Subjective/Interval History
-
Date of Service: September 04, 2024
Chest pain-free this morning on 30 mics of nitro drip
Objective Data
-
Labs:
Laboratory Results
09/04/24 09/04/24 09/04/24
03:32 10:58 17:00
WBC 12.5 H
Hgb 12.0
Hct 34.5 L
Plt Count 239
APTT 122.7 H 94.4 H Pending
Sodium 130 L
Potassium 4.3
Chloride 101
Carbon Dioxide 23
BUN 14
Creatinine 0.6
Glucose 144 H
Calcium 9.0
Total Bilirubin 0.6
AST 19
ALT 17
Alkaline Phosphatase 61
Vital Signs:
Vital Signs
Temp Pulse Resp BP Pulse Ox
98.2 F 72 15 136/53 97
09/04/24 11:49 09/04/24 11:45 09/04/24 11:49 09/04/24 11:39 09/04/24 11:49
I&O
09/03/24 09/04/24 09/05/24
06:59 06:59 06:59
Intake Total 352 / 352 240 / 240
Output Total 150 / 150
Balance 202 / 202 240 / 240
Data Reviewed
-
Total Time Spent with Patient (in minutes): 55
[2024-09-04] MEDS: PT'S OWN INSULIN PUMP - NovoLOG 10.45 UNIT SC (13:30)
--- NOTE | 2024-09-04 16:24 | PTCARENOTE ---
Patient stated she felt like she was getting a vaginal yeast infection which she has had and has taken diflucan without any difficulty. TT to Dr. Farias and patient was given a stat dose PO as ordered, urine sent to the lab.
[2024-09-04] MEDS: SINGULAIR 10 MG PO (17:49)
[2024-09-04 18:12] LABS: APTT 84.3 Sec (23.4-35.0)
[2024-09-04 18:43] LABS: Glucose - Point of Care 108 mg/dl (70-99)
[2024-09-04] MEDS: PT'S OWN INSULIN PUMP - NovoLOG 9.02 UNIT SC (20:39)
--- NOTE | 2024-09-04 21:16 | PTCARENOTE ---
Received pt @ change of shift. AAOx3, VSS-- NSR on monitor. Heparin gtt running @ 1300 units/hr and nitro gtt running @ 30 mcg/min through right forearm. Pt denies CP @ this time. Discussed plan of care for evening. Pt verbalizes understanding. Call
jones within reach.
[2024-09-04] MEDS: LIPITOR 80 MG PO (23:02)
[2024-09-04 23:15] LABS: Glucose - Point of Care 110 mg/dl (70-99)
[2024-09-04] MEDS: PT'S OWN INSULIN PUMP - NovoLOG SC (23:47)
[2024-09-05] MEDS: HEPARIN 25000 UNITS/250 ML IV ×2 (00:53→21:27)
[2024-09-05 04:25] VITALS: BP 133/50
[2024-09-05 05:08] LABS: Hematocrit 35.9 % (37.0-47.0); Hemoglobin 12.1 g/dL (12.0-16.0); Mean Corp Hgb Conc. 33.7 g/dL (33.0-37.0); Mean Corpuscular Volume 85.1 fL (81.0-99.0); Nucleated Red Blood Cells % 0 %; Platelet Count 234 10^3/uL (130-400); Red Cell Dist. Width 12.9 % (11.5-14.5)
[2024-09-05 05:26] LABS: APTT 87.8 Sec (23.4-35.0)
[2024-09-05 05:36] LABS: ALT (SGPT) 19 U/L (0-35); AST (SGOT) 21 U/L (14-36); Albumin 3.6 g/dl (3.5-5.0); Alkaline Phosphatase 58 U/L (38-126); Blood Urea Nitrogen 16 mg/dl (7-17); Calcium 9.2 mg/dl (8.4-10.2); Carbon Dioxide 25 mmol/L (22-30); Chloride 99 mmol/L (98-107); Estimated Creatinine Clearance 93 ml/min; Glucose 117 mg/dl (70-99); Potassium 4.2 mmol/L (3.5-5.1); Sodium 128 mmol/L (135-145); Total Protein 5.6 g/dl (6.3-8.2); eGFR > 60.00
[2024-09-05 07:09] VITALS: BP 147/47
[2024-09-05 07:12] LABS: Glucose - Point of Care 123 mg/dl (70-99)
[2024-09-05] MEDS: LOPRESSOR 12.5 MG PO ×4 (07:23→23:40)
[2024-09-05] MEDS: PEN VK 250 MG PO ×4 (07:24→23:40)
[2024-09-05] MEDS: SYNTHROID 50 MCG PO (07:24)
--- NOTE | 2024-09-05 07:54 | PN.DE.MGMTRT ---
Insulin Management
- -
09/05/2024 Diabetes Management Consult Follow up
Patient transferred from [facility] 09/03 with CP. PMH multivessel CAD, hypothyroid, sleep apnea with cpap, asthma, endometrial & uterine CA, HTN, HCL diabetes, aortic stenosis, vasovagal syncope. Prior to admission using the
tandem tslim pump with G6 CGM and novolog insulin. She was prescribed Brenzavvy but stopped 3 days ago. Also was prescribed invokanna and Victoza in the past but stopped due to cost. A1c is pending.
Patient is awake alert and oriented oob in chair. Able to discuss diabetes care. States she has had diabetes 50+ years, sees endocrine, TESTING MACHINE OPERATOR at [facility] for ongoing care. Glucose 113 on admission. Range yesterday 108 to 138. Fasting glucose 117.
Patient is able to manage insulin pump, will take corrections and meal bolus as needed. For OR 09/06.
Pump settings:
basal 1.7 units/hour, 24 hour basal total 41.04
Carb ratio 5.5
Sensitivity 21
Target 110
Active insulin 5 hours.
Discussed with nurse.
Will follow.
Diabetes History
- -
Type of Diabetes: 1
Pre-Admission Diabetes Regimen
09/05/24
04:32
Creatinine 0.6
Lab Results
Hemoglobin A1c 6.9 % (4.0-5.6) H 09/03/24 12:42
Insulin Pump Settings
IP Diabetes Regimen
09/04/24 09/04/24 09/04/24
12:10 18:41 23:14
Glucose
POC Glucose 138 H 108 H 110 H
09/05/24 09/05/24
04:32 07:11
Glucose 117 H
POC Glucose 123 H
Meal type: Lunch
Meal type: Breakfast
Amount consumed: 50%
Amount consumed: 100%
Patient Education
[2024-09-05] MEDS: PT'S OWN INSULIN PUMP - NovoLOG 8.55 UNIT SC (08:00)
[2024-09-05] MEDS: ASPIR LOW (ENTERIC COATED) 81 MG PO (08:18)
[2024-09-05] MEDS: PROTONIX 40 MG PO (08:19)
--- NOTE | 2024-09-05 09:56 | W.PN.CARDCBS ---
Addendum entered and electronically signed by eSng Chun MD 09/05/24 12:41:
74-year-old woman followed by Dr. Ken Tate of [facility] who underwent recent cardiac catheterization showing moderate to severe aortic stenosis and three-vessel CAD, undergoing CT surgical evaluation but admitted to [facility] with recurrent
chest pain and transferred for further evaluation.
PMH: Diabetes, history of vagal syncope, aortic stenosis, CAD, hypothyroidism, hyperlipidemia, GERD, hypertension
Medications in hospital: IV heparin, IV nitro, potassium 10 mEq daily, Protonix, Montelukast, levothyroxine, atorvastatin 80 mg a day, aspirin 81 mg daily, metoprolol 12.5 every 6, insulin pump, albuterol as needed, penicillin, aztreonam, vancomycin
on-call
130/54, pulse 67, respiratory rate 20, afebrile, head neck exam unremarkable lungs clear, aortic stenosis murmur, JVD okay abdomen benign extremities 2+ edema
Hemoglobin 12.1, platelets 234, BUN/creatinine 16 and 0.6, sodium 128
Impression:
CAD
Non-ST segment elevation myocardial infarction
Aortic stenosis
Type 1 diabetes
Hyponatremia
Hyperlipidemia
Other diagnoses as below
Plan:
Management of hyponatremia per hospitalist
OR in a.m.
Original Note:
Today's Communication / Plan
-
for CABG/AVR in AM
continue IV heparin, IV nitro gtt, asa, lopressor, statin
Impression / Plan
-
Primary Risk Control Manager: Dr. Tate of [facility]
Assessment:
CP
Multivessel CAD
Aortic stenosis
Type 1 diabetes
Peripheral neuropathy
Hypertension
Hyperlipidemia
History of syncopal episode 05/2024
Asthma
IBS
Long COVID
Laryngopharyngeal reflux
Parotid tumor status postresection
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
Hypothyroidism
OA
Echo 07/31/2024: EF 55 to 60%, mild concentric LVH, mild left atrial enlargement, mild MAC, moderate aortic stenosis with peak/mean gradients 37/22 mmHg, ALEXANDRA 1.1 cm�, mild mitral, tricuspid, aortic, pulmonic insufficiency, grade 1 diastolic
dysfunction, PASP 20 millimeters mercury
Plan:
- Patient with planned SAVR/CABG on 09/16/2024 presented yesterday to [facility] with complaints of chest pain. Transferred to [facility] for urgent SAVR/CABG
- without CP, SOB
- trop 0.3 and trending down
- Continue IV nitro and IV heparin
- in SR on review of tele overnight
- BPs stable. avoid hypotension in setting of known
- for CABG/SAVR Monday09/06/24
- continue asa, statin, toprol. holding losartan in prep for surgery and as on IV nitro
- patient asking if she needs dental eval/imaging prior to surgery, defer to CT surgical team
Progress Note - Risk Control Manager
Subjective
Date of Service: September 05, 2024
no CP, SOB
Objective
Labs:
09/05/24 04:32
09/05/24 04:32
Labs
Hgb 12.1 g/dL (12.0-16.0) 09/05/24 04:32
Hct 35.9 % (37.0-47.0) L 09/05/24 04:32
Plt Count 234 10^3/uL (130-400) 09/05/24 04:32
PT 14.1 Sec (11.4-14.6) 09/03/24 12:42
INR 1.04 09/03/24 12:42
APTT 87.8 Sec (23.4-35.0) H 09/05/24 04:32
Sodium 128 mmol/L (135-145) L 09/05/24 04:32
Potassium 4.2 mmol/L (3.5-5.1) 09/05/24 04:32
BUN 16 mg/dl (7-17) 09/05/24 04:32
Creatinine 0.6 mg/dL (0.6-1.0) 09/05/24 04:32
Glucose 117 mg/dl (70-99) H 09/05/24 04:32
Troponins
09/03/24 09/04/24
12:42 10:58
Troponin I 0.303 H* 0.154 H*
Vital Signs and I&O:
Vital Signs
Temp Pulse Resp BP Pulse Ox
97.5 F 67 20 147/47 97
09/05/24 07:09 09/05/24 07:23 09/05/24 07:09 09/05/24 07:23 09/05/24 07:09
Vital Signs
Temp Pulse Resp BP Pulse Ox
97.5 F 67 20 147/47 97
09/05/24 07:09 09/05/24 07:23 09/05/24 07:09 09/05/24 07:23 09/05/24 07:09
Intake & Output
09/03/24 09/04/24 09/05/24 09/06/24
07:59 07:59 07:59 07:59
Intake Total 352 / 352 1040 / 1040
Output Total 150 / 150 450 / 450
Balance 202 / 202 590 / 590
Physical Exam
Physical Exam
GEN: No distress, awake, alert, oriented x3. obese
HEENT: supple, anicteric, mmm, eomi
LUNGS: few wheezes
CV: Reg, S1/S2, 2/6 syst LSB
ABD: soft, BS+, NT/ND
EXT: No cyanosis, clubbing. trace edema of B/L LE
NEURO: Gross non-focal
SKIN: Warm, pink, dry. No rash
--- NOTE | 2024-09-05 10:50 | CM ---
Chart reviewed. Patient scheduled for CABG/AVR 09/06/24. Patient lives alone in a 1st floor apartment, 1 MARLIN, 0 DME. Patient with supportive siblings, niece and friends. Plan is for the patient to return home with CT Transitional RN. CM to
follow
[2024-09-05 11:36] VITALS: BP 130/54
--- NOTE | 2024-09-05 11:42 | W.PN.HOSP.TC ---
Today's Communication/Plan
-
ADD fluid restriction
Continue with heparin and nitroglycerin infusion
Ongoing preop testing per CT surgery
NPO PMN
Assessment / Plan
Assessment / Plan
General: Well Developed, Well Nourished, No Apparent Distress and Comfortable
Respiratory: Clear
Cardiac: S1/S2, Regular Rhythm and Murmur (+ murmur)
GI: Soft, Non Tender, Non Distended and Normal Bowel Sounds
Musculoskeletal: No Clubbing and No Cyanosis
Skin: Warm and Dry
Neuro: Awake, Alert, Oriented and AO x 3
Psych: Calm
#NSTEMI
#Multivessel CAD
-Presented as a transfer from [facility] with ACS and for CABG/valve replacement
-Currently on nitro drip with goal to make chest pain-free for AVR/CABG. Continue Nitroglycerin
-CXR-Hypoaerated lungs without consolidation.
-Continue metoprolol, ASA daily, high intensity statin
-Continue heparin gtt
-CTS following and pre-op testing started. Plan for tentative AVR/CABG later this week
#CAD s/p [facility] with multivessel CAD with IFR positive LAD, confirmed three-vessel disease
-CT surgery consulted for CABG to LAD
-Continue aspirin, high intensity statin
#Mild hyponatremia
- Low serum osm and urine sodium. Will add FR to diet.
- Not overtly volume overloaded.
-trend bmp
#Aortic stenosis
Echocardiogram 07/31/2024 with LVEF 55�60% with no obvious segmental abnormalities, aortic valve trileaflet with moderate stenosis with peak/mean gradients of 37/22 mmHg.
For possible valve replacement this admission
#Asymptomatic Streptococcus agalactiae bacteriuria
Antibiotics initiated per CT surgery
#Hypertension
-Continue on beta-roman dose increased per cardiology
-Hold losartan.
#Leukocytosis
Resolved
#Type 1 diabetes mellitus
-Continue on insulin pump
-Update A1c at 6.9
-Consult DM GUEST RELATIONS RECEPTIONIST
#Hyperlipidemia
-Continue high intensity statin, atorvastatin 80 mg
-LDL goal < 55
#Obstructive sleep apnea
-Continue nightly CPAP
#Asthma
-No acute exacerbation
-Continue home montelukast
-Continue to monitor
#GERD
-Continue pantoprazole
#Hypothyroidism
-Continue with levothyroxine
CODE STATUS; full code
DVT prophylaxis; heparin GGT
Anticipated Discharge: > 48 hours
Subjective/Interval History
-
Date of Service: September 05, 2024
Stated of vaginal irritation and felt like she was having yeast infection
Denied any dysuria or increasing urgency or frequency
Denies any chest pain
Objective Data
-
Labs:
Laboratory Results
09/05/24
04:32
WBC 10.7
Hgb 12.1
Hct 35.9 L
Plt Count 234
APTT 87.8 H
Sodium 128 L
Potassium 4.2
Chloride 99
Carbon Dioxide 25
BUN 16
Creatinine 0.6
Glucose 117 H
Calcium 9.2
Total Bilirubin 0.8
AST 21
ALT 19
Alkaline Phosphatase 58
Vital Signs:
Vital Signs
Temp Pulse Resp BP Pulse Ox
98.1 F 67 20 147/47 96
09/05/24 11:36 09/05/24 07:23 09/05/24 11:36 09/05/24 07:23 09/05/24 11:36
I&O
09/04/24 09/05/24 09/06/24
06:59 06:59 06:59
Intake Total 352 / 352 1040 / 1040
Output Total 150 / 150 450 / 450
Balance 202 / 202 590 / 590
[2024-09-05] MEDS: PT'S OWN INSULIN PUMP - NovoLOG 11 UNIT SC (12:00)
[2024-09-05] MEDS: NITROGLYCERIN PREMIX 250 IV (12:34)
[2024-09-05 13:10] LABS: Glucose - Point of Care 136 mg/dl (70-99)
[2024-09-05 15:17] VITALS: BP 118/46
--- NOTE | 2024-09-05 17:00 | PTCARENOTE ---
Pt received this am with no c/o of chest pain or sob. OOB ad simon in the room. Heparin and nitro infusing as ordered. Pt for CVOR tomorrow.
[2024-09-05] MEDS: PT'S OWN INSULIN PUMP - NovoLOG 10.49 UNIT SC (18:00)
[2024-09-05] MEDS: SINGULAIR 10 MG PO (18:11)
[2024-09-05 18:16] LABS: Glucose - Point of Care 143 mg/dl (70-99)
[2024-09-05 19:31] VITALS: BP 143/57
[2024-09-05] MEDS: LIPITOR 80 MG PO (21:27)
[2024-09-05 22:33] LABS: Glucose - Point of Care 98 mg/dl (70-99)
[2024-09-05] MEDS: PT'S OWN INSULIN PUMP - NovoLOG SC (23:35)
[2024-09-05 23:38] VITALS: BP 133/46
[2024-09-06] VITALS (12 sets, daily range): BP systolic 102–158; BP diastolic 42–68; BMI 37.6
[2024-09-06 05:25] LABS: Hematocrit 35.1 % (37.0-47.0); Hemoglobin 12.1 g/dL (12.0-16.0); Mean Corp Hgb Conc. 34.5 g/dL (33.0-37.0); Mean Corpuscular Volume 84.0 fL (81.0-99.0); Nucleated Red Blood Cells % 0 %; Platelet Count 230 10^3/uL (130-400); Red Cell Dist. Width 12.9 % (11.5-14.5)
[2024-09-06 05:39] LABS: APTT 120.4 Sec (23.4-35.0)
[2024-09-06 05:53] LABS: ALT (SGPT) 20 U/L (0-35); AST (SGOT) 20 U/L (14-36); Albumin 3.5 g/dl (3.5-5.0); Alkaline Phosphatase 58 U/L (38-126); Blood Urea Nitrogen 13 mg/dl (7-17); Calcium 9.4 mg/dl (8.4-10.2); Carbon Dioxide 26 mmol/L (22-30); Chloride 101 mmol/L (98-107); Estimated Creatinine Clearance 93 ml/min; Glucose 128 mg/dl (70-99); Potassium 4.0 mmol/L (3.5-5.1); Sodium 130 mmol/L (135-145); Total Protein 5.6 g/dl (6.3-8.2); eGFR > 60.00
[2024-09-06] MEDS: LOPRESSOR PO ×3 (06:10→14:48)
[2024-09-06] MEDS: MAGNESIUM OXIDE 500 MG PO (06:11)
[2024-09-06] MEDS: SYNTHROID 50 MCG PO (06:12)
[2024-09-06] MEDS: BACTROBAN 2% OINTMENT 1 APPLIC NASAL ×2 (06:12→20:21)
[2024-09-06] MEDS: PEN VK 250 MG PO (06:12)
[2024-09-06] MEDS: PROTONIX 40 MG PO (06:12)
[2024-09-06] MEDS: LOPRESSOR 25 MG PO (06:15)
[2024-09-06 06:22] LABS: Glucose - Point of Care 167 mg/dl (70-99)
--- NOTE | 2024-09-06 06:39 | W.CVOR.SURPR ---
CVOR Surgeon Immed Pre Op
-
I have examined this patient prior to performance of the scheduled procedure.
The patient's condition is unchanged from the time of the dictated/written History and
Physical and the patient is able to undergo the scheduled procedure.
--- NOTE | 2024-09-06 07:40 | PTCARENOTE ---
Pt NSR on monitor. Denies chest pain. Nitro gtt and Heparin gtt per order. Pt NPO for CVOR. CHG bath completed x2. Pt ambulates x 1 assist. Call jones in reach.
[2024-09-06 07:55] LABS: ACT+ - POC 120 Seconds (82-134)
[2024-09-06 08:26] LABS: Urine Character Slightly Cloudy (Clear)
[2024-09-06 10:23] LABS: ACT+ - POC 494 Seconds (82-134)
[2024-09-06 10:40] LABS: B.E. - POC -1.6 mmol/L; Glucose - POC 147 mg/dl (70-99); HCO3 - POC 23 mmol/L (21-28); Hematocrit - POC 34 % PCV (37-47); Hemodilution- POC Yes; Hemoglobin Calculated - POC 11.4; Ionized Calcium - POC 1.24 mmol/L (1.15-1.33); Lactate - POC 1.00 mmol/L (0.36-0.75); O2 Saturation %Calculated-POC 99.9 % (94-98); PCO2 - POC 36 mmHg (35-48); PO2 - POC 249 mmHg (83-108); Potassium - POC 4.6 mmol/L (3.5-5.1); Sodium - POC 134 mmol/L (136-145); Specimen Type - POC Arterial; pH - POC 7.41 (7.35-7.45)
[2024-09-06 10:49] LABS: ACT+ - POC 526 Seconds (82-134)
[2024-09-06 11:18] LABS: ACT+ - POC 614 Seconds (82-134)
[2024-09-06 11:30] LABS: B.E. - POC -0.6 mmol/L; Glucose - POC 175 mg/dl (70-99); HCO3 - POC 24 mmol/L (21-28); Hematocrit - POC 32 % PCV (37-47); Hemodilution- POC No; Hemoglobin Calculated - POC 10.9; Ionized Calcium - POC 1.27 mmol/L (1.15-1.33); Lactate - POC < 0.30 mmol/L (0.36-0.75); O2 Saturation %Calculated-POC 99.9 % (94-98); PCO2 - POC 41 mmHg (35-48); PO2 - POC 283 mmHg (83-108); Potassium - POC 3.8 mmol/L (3.5-5.1); Sodium - POC 134 mmol/L (136-145); Specimen Type - POC Arterial; pH - POC 7.39 (7.35-7.45)
[2024-09-06 11:30] LABS: B.E. - POC 1.6 mmol/L; Glucose - POC 149 mg/dl (70-99); HCO3 - POC 25 mmol/L (21-28); Hematocrit - POC 28 % PCV (37-47); Hemodilution- POC Yes; Hemoglobin Calculated - POC 9.5; Ionized Calcium - POC 1.10 mmol/L (1.15-1.33); Lactate - POC < 0.30 mmol/L (0.36-0.75); O2 Saturation %Calculated-POC 100.0 % (94-98); PCO2 - POC 36 mmHg (35-48); PO2 - POC 494 mmHg (83-108); POC Comment CPB; Potassium - POC 4.1 mmol/L (3.5-5.1); Sodium - POC 130 mmol/L (136-145); Specimen Type - POC Arterial; pH - POC 7.46 (7.35-7.45)
[2024-09-06 11:32] LABS: B.E. - POC 2.1 mmol/L; Glucose - POC 119 mg/dl (70-99); HCO3 - POC 26 mmol/L (21-28); Hematocrit - POC 30 % PCV (37-47); Hemodilution- POC Yes; Hemoglobin Calculated - POC 10.2; Ionized Calcium - POC 1.16 mmol/L (1.15-1.33); Lactate - POC 1.20 mmol/L (0.36-0.75); O2 Saturation %Calculated-POC 99.9 % (94-98); PCO2 - POC 35 mmHg (35-48); PO2 - POC 286 mmHg (83-108); POC Comment CPB; Potassium - POC 4.4 mmol/L (3.5-5.1); Sodium - POC 136 mmol/L (136-145); Specimen Type - POC Arterial; pH - POC 7.48 (7.35-7.45)
[2024-09-06 11:42] LABS: ACT+ - POC 553 Seconds (82-134)
[2024-09-06 12:06] LABS: B.E. - POC 0.9 mmol/L; Glucose - POC 110 mg/dl (70-99); HCO3 - POC 26 mmol/L (21-28); Hematocrit - POC 30 % PCV (37-47); Hemodilution- POC Yes; Hemoglobin Calculated - POC 10.2; Ionized Calcium - POC 1.18 mmol/L (1.15-1.33); Lactate - POC 1.59 mmol/L (0.36-0.75); O2 Saturation %Calculated-POC 99.9 % (94-98); PCO2 - POC 42 mmHg (35-48); PO2 - POC 274 mmHg (83-108); POC Comment CPB; Potassium - POC 4.0 mmol/L (3.5-5.1); Sodium - POC 138 mmol/L (136-145); Specimen Type - POC Arterial; pH - POC 7.40 (7.35-7.45)
[2024-09-06 12:16] LABS: ACT+ - POC 511 Seconds (82-134)
[2024-09-06 12:36] LABS: B.E. - POC 1.4 mmol/L; Glucose - POC 127 mg/dl (70-99); HCO3 - POC 27 mmol/L (21-28); Hematocrit - POC 29 % PCV (37-47); Hemodilution- POC Yes; Hemoglobin Calculated - POC 9.7; Ionized Calcium - POC 1.14 mmol/L (1.15-1.33); Lactate - POC 1.66 mmol/L (0.36-0.75); O2 Saturation %Calculated-POC 99.9 % (94-98); PCO2 - POC 44 mmHg (35-48); PO2 - POC 262 mmHg (83-108); POC Comment CPB; Potassium - POC 4.6 mmol/L (3.5-5.1); Sodium - POC 138 mmol/L (136-145); Specimen Type - POC Arterial; pH - POC 7.39 (7.35-7.45)
--- NOTE | 2024-09-06 12:36 | CM ---
pt in OR today, cm to follow
[2024-09-06 12:43] LABS: ACT+ - POC 470 Seconds (82-134)
[2024-09-06 12:54] LABS: ACT+ - POC 492 Seconds (82-134)
[2024-09-06 13:03] LABS: B.E. - POC 0.8 mmol/L; Glucose - POC 155 mg/dl (70-99); HCO3 - POC 26 mmol/L (21-28); Hematocrit - POC 29 % PCV (37-47); Hemodilution- POC Yes; Hemoglobin Calculated - POC 9.9; Ionized Calcium - POC 1.16 mmol/L (1.15-1.33); Lactate - POC 1.47 mmol/L (0.36-0.75); O2 Saturation %Calculated-POC 99.9 % (94-98); PCO2 - POC 42 mmHg (35-48); PO2 - POC 264 mmHg (83-108); POC Comment CPB; Potassium - POC 4.2 mmol/L (3.5-5.1); Sodium - POC 138 mmol/L (136-145); Specimen Type - POC Arterial; pH - POC 7.40 (7.35-7.45)
[2024-09-06 13:13] LABS: ACT+ - POC 569 Seconds (82-134)
[2024-09-06 13:41] LABS: ACT+ - POC 463 Seconds (82-134)
--- NOTE | 2024-09-06 13:59 | PN.DE.MGMTRT ---
Insulin Management
- -
09/06/2024 Diabetes Management Consult Follow up
Patient transferred from [facility] 09/03 with CP. PMH multivessel CAD, hypothyroid, sleep apnea with cpap, asthma, endometrial & uterine CA, HTN, HCL diabetes, aortic stenosis, vasovagal syncope. Prior to admission using the
tandem tslim pump with G6 CGM and novolog insulin. She was prescribed Brenzavvy but stopped 3 days ago. Also was prescribed invokanna and Victoza in the past but stopped due to cost. A1c is pending.
Patient is in the OR at the time of my visit. Range yesterday 108 to 138.
Patient will receive critical care glycemic protocol insulin infusion for 48 hours per protocol. Discussed with CVPA & DISHWASHER BUSSER patient to resume insulin pump on Monday, once pump is started IV insulin to be stopped 2 hours later..
Pump settings:
basal 1.7 units/hour, 24 hour basal total 41.04
Carb ratio 5.5
Sensitivity 21
Target 110
Active insulin 5 hours.
Discussed with nurse.
Will follow.
States she has had diabetes 50+ years, sees endocrine, DISHWASHER BUSSER at [facility] for ongoing care. Glucose 113 on admission.
Diabetes History
- -
Type of Diabetes: 1
Pre-Admission Diabetes Regimen
09/06/24
05:11
Creatinine 0.6
Lab Results
Hemoglobin A1c 6.9 % (4.0-5.6) H 09/03/24 12:42
Insulin Pump Settings
IP Diabetes Regimen
09/05/24 09/05/24 09/06/24
18:14 22:32 05:11
Glucose 128 H
POC Glucose 143 H 98
09/06/24
06:19
Glucose
POC Glucose 167 H
Meal type: Dinner
Amount consumed: 100%
Patient Education
[2024-09-06 14:09] LABS: B.E. - POC 0.8 mmol/L; Glucose - POC 152 mg/dl (70-99); HCO3 - POC 25 mmol/L (21-28); Hematocrit - POC 27 % PCV (37-47); Hemodilution- POC Yes; Hemoglobin Calculated - POC 9.2; Ionized Calcium - POC 1.14 mmol/L (1.15-1.33); Lactate - POC 0.95 mmol/L (0.36-0.75); O2 Saturation %Calculated-POC 100.0 % (94-98); PCO2 - POC 39 mmHg (35-48); PO2 - POC 377 mmHg (83-108); POC Comment WARM; Potassium - POC 4.3 mmol/L (3.5-5.1); Sodium - POC 138 mmol/L (136-145); Specimen Type - POC Arterial; pH - POC 7.43 (7.35-7.45)
[2024-09-06 14:12] LABS: ACT+ - POC 129 Seconds (82-134)
--- NOTE | 2024-09-06 14:16 | CON.INTV ---
Consultation
Consultation Request
Date/Time Consultation Requested: 09/06/24
Date/Time Consultation Performed: 09/06/24
Performing Provider: Eduardo
Reason for Consultation: CVICU
Medical History
-
History of Present Illness:
Patient is a 74-year-old female with previous history of asthma, RATNA on CPAP, hypertension, diabetes, CAD presenting for elective cardiac surgery. Underwent cardiac catheterization on 08/01/2024 with multivessel CAD following abnormal stress test.
Underwent CAB and postoperatively transferred to CVICU for further management.
Past Medical History
Past Medical History: Other (see list below)
Social History
Tobacco: Non-smoker
Alcohol: None
Drug: None
Family History
Family History: Reviewed & Not Pertinent
Allergies / Home Medications
Allergies
Allergy/AdvReac Type Severity Reaction Status Date / Time
Cephalosporins Allergy Severe Swelling Verified 08/01/24 10:07
Iodinated Contrast Media Allergy Severe Shortness Verified 08/01/24 10:07
of Breath
adhesive Allergy Intermediate Rash Verified 08/01/24 10:07
phenobarbital Allergy Unknown Unknown Verified 08/01/24 10:07
codeine Allergy Unknown Verified 08/01/24 10:07
insulin lispro (From Humalog Allergy Rash Verified 08/01/24 10:07
U-100 Insulin)
shellfish derived Allergy Unknown Verified 08/01/24 10:07
diphenhydramine (From AdvReac TACHYCARDIA Verified 08/01/24 10:07
Benadryl)
Home Medications
�Medication �Instructions �Recorded �Confirmed �Last Taken �Type
aspirin 81 mg tablet,delayed 81 mg PO DAILY Blood Clot 08/01/24 09/03/24 09/03/24 08:00 History
release Prevention/Tx
atorvastatin 80 mg tablet (Lipitor) 80 mg PO HS #30 tabs 08/01/24 09/03/24 09/02/24 21:30 Rx
cetirizine 10 mg tablet (Zyrtec) 10 mg PO DAILY PRN ALLERGIES 08/01/24 09/03/24 08/01/24 07:30 History
levothyroxine 25 mcg tablet 50 mcg PO DAILY Thyroid 08/01/24 09/03/24 09/03/24 06:00 History
losartan 25 mg tablet 100 mg PO DAILY Blood Pressure 08/01/24 09/03/24 07/31/24 21:00 History
metoprolol succinate 25 mg 25 mg PO DAILY #30 tabs 08/01/24 09/03/24 09/03/24 08:00 Rx
tablet,extended release 24 hr 12.5 mg
(Toprol XL)
montelukast 10 mg tablet 10 mg PO DAILY Allergies 08/01/24 09/03/24 07/31/24 21:00 History
pantoprazole 40 mg tablet,delayed 40 mg PO DAILY Gastrointestinal 08/01/24 09/03/24 08/01/24 07:30 History
release Issue
potassium chloride 10 mEq 10 meq PO DAILY Supplement 08/01/24 09/03/24 09/03/24 08:00 History
tablet,extended release (Klor-Con)
Multi Vitamin 1 tab PO DAILY Supplement 09/03/24 09/03/24 Unknown History
bexagliflozin 20 mg tablet 20 mg PO DAILY Autoimmune Disorder 09/03/24 09/03/24 Unknown History
(Brenzavvy)
cholecalciferol (vitamin D3) 25 25 mcg PO DAILY Supplement 09/03/24 09/03/24 Unknown History
mcg (1,000 unit) tablet (Vitamin
D3)
insulin aspart U-100 100 unit/mL 1 sliding scale dose SC 09/03/24 09/03/24 Unknown History
subcutaneous cartridge DIRECTED Diabetes
vitamin E 400 unit tablet 45 mg PO DAILY Supplement 09/03/24 09/03/24 Unknown History
Review of Systems
-
Unable to Obtain full review of systems at this time due to: Patient Intubation
Vitals / Labs / Diagnostic Testing
Vital Signs
Temp Pulse Resp BP Pulse Ox
97.8 F 68 20 149/57 98
09/06/24 05:21 09/06/24 06:15 09/06/24 05:21 09/06/24 06:15 09/06/24 05:21
Laboratory Results
09/06/24 09/06/24
05:11 12:00
APTT 120.4 H Cancelled
Microbiology
09/03/24 17:40 Nose MRSA Screen - Final
No Methicillin Resistant Staphylococcus aureus isolated.
09/03/24 17:40 Urine Urine Culture - Final
Streptococcus agalactiae
Diagnostic Testing:
Physical Exam
-
HEENT: Normocephalic, Anicteric and Moist Mucous Membranes
Cardiovascular: S1/S2 and Regular Rhythm
Respiratory: Clear, Non-Labored Respirations and Other (ETT/chest tubes)
GI: Soft, Non Distended and Non Tender
Neurology: Other (sedated/intubated)
Skin: Warm, Dry and Other (pale)
General: Comfortable and Other (NAD)
Assessment
-
Patient is a 74-year-old female with previous history of asthma, RATNA on CPAP, hypertension, diabetes, CAD presenting for elective cardiac surgery. Underwent cardiac catheterization on 08/01/2024 with multivessel CAD following abnormal stress test.
Underwent CAB and postoperatively transferred to CVICU for further management.
Multivessel CAD status post CABG x 3, AVR 09/06/2024
Unstable angina/NSTEMI
Moderate to severe aortic stenosis
Syncopal episode 05/2024
Perioperative mechanical ventilation
Postop anemia
Conditions present prior to admission
Neuropathy
Asthma
RATNA on CPAP
Hypertension
Hyperlipidemia
Hypothyroidism
OA w/ significant cervical and B/L shoulder involvement
Parotid tumor s/p Rx
IBS
Reflux
Diabetes
Cataract status post surgery
Vitreous detachment with neovascularization
Endometrial and uterine cancer 2003 status post PRISCILA
Vasovagal syncope
Obesity
Plan
S/p CAB/AVR POD #0
Titrate off pressors per protocol
ECHO reviewed with normal function
PA catheter readings reviewed
Management of chest tubes per primary service
Intubated/sedated, initiate SAT when able
Pain control
RASS goal of 0 to -1
Intubated for procedure, SBT trial when patient able to spontaneously breath
Current vent settings: SIMV 500/14/40/5
ABG(s) reviewed/adequate
CXR with no obvious opacities/infiltrates, RHD/low lung volumes, ETT in good position, lines/tubes in place
Extubate per protocol
Maintain supplement oxygen as needed
Prior history of pulmonary disease-RATNA on CPAP; Asthma
Can resume CPAP post extubation/nightly if needed
Prior PFTs reviewed-mild obstruction
Resume home inhalers when able/Can add nebulizers if needed
Aspiration precautions
Encouraged incentive spirometry, OOB/ambulation/early mobility
Advance diet as tolerated following extubation
GI prophylaxis if indicated for mechanical ventilation >48 hours
Monitor critical I/O's
Wilson/chest tube output
Hb/platelets postoperatively stable
Trend CBC for now
Can transfuse if indicated for Hb <7, plt <50 in surgical patients
DVT prophylaxis including SCDs
Insulin protocol initiated and ongoing
Transition to SQ/off as indicated per team
We will follow
Diagnostic Data
Chest X-Ray: 09/06/24-Parenchymal opacity within the mid to lower lungs bilaterally, which is likely atelectasis. No evidence for significant pneumothorax.
09/03/24- Hypoaerated lungs without consolidation.
CT Scan: CT 09/03/24- Linear densities within both lower lungs, compatible with linear atelectasis and/or scarring. There is no significant pleural effusion and no significant pericardial effusion.
Echo: COLEMAN 09/06/24- Overall LVEF is approximately 60% with no RWMA.Mild concentric left ventricular hypertrophy. Stage II Diastolic dysfunction. Severely dilated left atrium. Moderately dilated right atrium. Trace tricuspid regurgitation. Mild
pulmonic insufficiency. Severe aortic stenosis. Mild aortic insufficiency. ALEXANDRA calculates to 1.1 cm2 by continuity equation. Mild mitral regurgitation. Posterior MV annulus is calcified. Mild mitral stenosis.
Mild sessile atheroma seen in the descending aorta and distal arch.
[facility] 08/01/24- CONCLUSIONS
1. Multivessel CAD with iFR positive LAD.
2. Elevated LVEDP.
PFT's: 09/03/24- FEV1/FVC Ratio of 67%. FEV1 was 1.45L / 70% of predicted. FVC was 2.17L / 81% of predicted.
Spirometry post bronchodilator: FEV1 was 1.68L / 82% of predicted.
Changes suggest mild obstruction.
Reports and relevant images were personally reviewed.
Critical Care time 50 mins -- The patient is admitted for acute critical illness for the treatment of vital organ failure and/or prevention of further life-threatening conditions. Total care includes time spent in review of history, physical exam,
medications, hemodynamic/ventilator parameters, laboratory data, imaging and discussion with house staff, pharmacy, respiratory therapy, deadener, and nursing.
[2024-09-06] MEDS: NEURONTIN PO ×3 (14:42→23:09)
[2024-09-06] MEDS: NOVOLOG FLEXPEN SC ×2 (14:42→16:25)
[2024-09-06] MEDS: TYLENOL PO ×2 (14:42→22:33)
[2024-09-06] MEDS: ASPIR LOW (ENTERIC COATED) PO (14:42)
[2024-09-06] MEDS: PEN VK PO ×2 (14:42→20:08)
[2024-09-06] MEDS: PROTONIX PO (14:42)
[2024-09-06] MEDS: PT'S OWN INSULIN PUMP - NovoLOG SC ×2 (14:48→14:49)
--- NOTE | 2024-09-06 14:54 | W.IMMPOSTOP ---
Addendum entered and electronically signed by Juan Diego Malloy MD 09/06/24 16:44:
[id number]
Original Note:
Surgical Immed Post Op Note
-
CARDIAC SURGERY OPERATIVE NOTE:
Preoperative Dx:
MVCAD
Unstable angina/ NSTEMI
Fczkjikn-ac-gmdjow aortic stenosis
Hx of syncopal episode 05/2024
Type I DM
Hyponatremia
Hypertension
Hyperlipidemia
Hypothyroidism
OA w/ significant cervical and B/L shoulder involvement
Parotid tumor s/p Rx
Encapsulated endometrial cancer s/p hysterectomy
IBS
Long-COVID
Morbid obesity (BMI 37.5)
Postoperative Dx:
Same
Procedures:
1) Median sternotomy
2) Takedown of MAXI (narrow pedicle)
3) Endoscopic/limited open harvest/prep of LLE GSV
4) CABG x 3 (MAXI to LAD, GSV to OM2, GSV to RPDA)
5) ELAA (45mm AtriClip)
6) AVR (#23 Inspiris Resilia)
Surgeon:
Juan Diego Malloy M.D.
Assistants:
Jose Alberto RomeroN.F.A. - endoscopic/open harvest/prep of LLE GSV; assistant business manager throughout
Aleksandra Hsu P.A.-C. - fchmei-ntce-kfgs sternotomy closure
Anesthesia:
Maldonado Schofield M.D. and Margie BlockR.N.A.
Perfusion:
Margie HuertaCGueroPGuero; CPB: 177min, XC: 155min
Findings:
Challenging sternotomy & MAXI takedown secondary to patient body habitus. Relatively small mediastinal space, fragile sternal tissues w/ limited ability for retraction.
MAXI was a healthy vessel w/ ELD 2.75mm w/ very brisk blood flow
GSV harvest was also challenging secondary to body habitus and nature of GSV. Her GSV was slightly larger than typical and quite thin walled. Adequate length and quality was obtained to accomplish planned grafts
LAD was partialy visible on the epicardial surface. It's course was slightly obscured w/ epicardial adipose. It had moderated dense scattered calcifications. Relatively normal holliday at distal midpoint anastomosis. ELD 2.5mm. 1mm vessel probe
passed proximal and distal to anastomosis w/o sig resistance. Approximately 2-3 cm distal to the anastomosis there was a plaque present and a 1.5mm probe would not pass this location. This was in close proximity to the apex (1-2 cm). The
epicardial adipose was cleared over this location and the LAD inspected. The plaque was visible, and the distal LAD beyond was ~1mm. Upon release of bulldog clamp brisk blood flow entered LAD and its tributaries.
OM2 was visible on the epicardia surface. It had scant scattered calcifications and was a small, thin walled vessel w/ ELD 2.0mm w/ serpentine course
RPDA was visible on the epicardial surface. It had very scant scattered calcifications. It too was a small, thin walled vessel w/ ELD 1.5mm (anastomosis performed over 1.0mm shunt).
Large THOMAS w/ windsock morphology; successfully excluded at its base w/ 45mm AtriClip
AV was trileaflet w/ mqvnhlij-gw-ctfmyn leaflet calcifications on all leaflets. There was very minimal annular extension of calcium. #23 Inspiris Resilia valve placed and secured w/ 15 interrupted, pledgetted valve sutures and CorKnots
Post-COLEMAN: Normal biventricular function. Well-seated AVR w/o PVL/AI, mean gradient 4mmHg under GA, trace MR, nxfqj-le-iunq TR, THOMAS excluded
Good flow in all grafts on transit-time, U/S flow probe assessment
Implants:
AtriClip 45mm LOT [id number]
Mccarthy INSPIRIS RESILIA AVR, Model [id number], SN [id number]
CT x 4 (B/L pleural, inferior mediastinal, superior mediastinal)
Epicardial bipolar V-wire x 1
Sternal wires x 10
Transfusions:
None
Complications:
None
Condition:
69 sinus (-0.3/0.0); 130/49. 30/7. CVP 4. 100%
GTTS: precedex 0.5, insulin 2
Stable/guarded to CVICU
[2024-09-06] MEDS: PACERONE PO ×2 (15:03→23:09)
--- NOTE | 2024-09-06 15:38 | W.PN.CARDCBS ---
Addendum entered and electronically signed by Jonny No DO 09/06/24 16:20:
I saw and examined the patient.
The Foreign Policy Officer's note was reviewed and I agree with the note.
Comment:
Patient seen postoperatively status post CABG x 3, THOMAS clip, bioprosthetic AVR
Intubated, sedated on mechanical ventilation
GENERAL: no acute distress, sedated
EYE: sclera anicteric
NECK: Supple, no JVD, no carotid bruit appreciated
ENT: normal nose, moist mucosal membranes
CARDIAC: Regular rate and rhythm, +S1/S2, no murmur, rubs, or gallops; epicardial RV wire VS; chest tubes in place
CHEST/PULMONARY: Mechanical ventilation
ABDOMEN: Soft, without focal tenderness or distention
NEUROLOGICAL: Sedated
SKIN: Warm and dry, no rash
Telemetry sinus rhythm
EKG sinus rhythm LVH
A/P as below
Postoperative care per CT surgery, wean Levophed, mechanical ventilation as tolerated
Continue aspirin and statin
Monitor on telemetry
Resume beta-roman, ARB when able
Labs a.m.
Discussed with nursing, CT surgical team
Original Note:
Today's Communication / Plan
-
continue post op care
Impression / Plan
-
Primary Heart Doctor: Dr. Tate of [facility]
Assessment:
Presented with CP to [facility], was scheduled for CABG 09/16/24 as OP, transferred to for urgent AVR/CABG
Status post CABG x 3 related to LAD, GSV to OM 2, GSV to RPDA, THOMAS clip, #23 bioprosthetic AVR 09/06/24
Multivessel CAD
Aortic stenosis
Type 1 diabetes
Peripheral neuropathy
Hypertension
Hyperlipidemia
History of syncopal episode 05/2024
Asthma
IBS
Long COVID
Laryngopharyngeal reflux
Parotid tumor status postresection
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
Hypothyroidism
OA
Echo 07/31/2024: EF 55 to 60%, mild concentric LVH, mild left atrial enlargement, mild MAC, moderate aortic stenosis with peak/mean gradients 37/22 mmHg, ALEXANDRA 1.1 cm�, mild mitral, tricuspid, aortic, pulmonic insufficiency, grade 1 diastolic
dysfunction, PASP 20 millimeters mercury
Plan:
-Status post CABG x 3 related to LAD, GSV to OM 2, GSV to RPDA, THOMAS clip, #23 bioprosthetic AVR 09/06/24
-intubated, sedated
-BPs labile intraop, currently on levo @8. wean as able
-labs pending
-EKG SR with some T wave flattening. required pacing for 10 minutes intraop, sinus since that time
-continue asa, statin
-was on toprol and losartan pre op
-continue post op care
-d/w nursing, CT surgical team
Progress Note - Heart Doctor
Subjective
Date of Service: September 06, 2024
intubated, sedated
Objective
Labs:
Labs
Hgb Cancelled 09/06/24 19:00
Hct Cancelled 09/06/24 19:00
Plt Count Cancelled 09/06/24 19:00
PT 14.1 Sec (11.4-14.6) 09/03/24 12:42
INR 1.04 09/03/24 12:42
APTT Cancelled 09/06/24 12:00
Sodium 130 mmol/L (135-145) L 09/06/24 05:11
Potassium 4.0 mmol/L (3.5-5.1) 09/06/24 05:11
BUN 13 mg/dl (7-17) 09/06/24 05:11
Creatinine 0.6 mg/dL (0.6-1.0) 09/06/24 05:11
Glucose 128 mg/dl (70-99) H 09/06/24 05:11
Troponins
09/04/24
10:58
Troponin I 0.154 H*
Vital Signs and I&O:
Vital Signs
Temp Pulse Resp BP Pulse Ox
97.8 F 63 20 149/57 98
09/06/24 05:21 09/06/24 06:45 09/06/24 05:21 09/06/24 06:15 09/06/24 05:21
Vital Signs
Temp Pulse Resp BP Pulse Ox
97.8 F 63 20 149/57 98
09/06/24 05:21 09/06/24 06:45 09/06/24 05:21 09/06/24 06:15 09/06/24 05:21
Intake & Output
09/04/24 09/05/24 09/06/24 09/07/24
07:59 07:59 07:59 07:59
Intake Total 352 / 352 1040 / 1040 156 / 156 0 / 0
Output Total 150 / 150 450 / 450 0 / 0
Balance 202 / 202 590 / 590 156 / 156 0 / 0
Physical Exam
Physical Exam
GEN: No distress, intubated, sedated. obese
HEENT: supple, mmm
LUNGS: CTA B/L on mech ventilation, no wheezes
CV: Reg, S1/S2, no murmur
EXT: No cyanosis, clubbing, edema
NEURO: sedated
SKIN: Warm, pink, dry. No rash. Sternotomy dressing c/d/i. CTs in place.
BECKI: roz
[2024-09-06 15:45] LABS: B.E. -3.4 mmol/L; HCO3 22.7 mmol/L (21-28); O2 Saturation % 100.0 % (94-98); PCO2 45 mmHg (32-35); PO2 124 mmHg (83-108); Potassium 4.4 mMOL/L (3.5-5.1); Sodium 133 mMOL/L (136-145)
[2024-09-06 15:56] LABS: INR 1.96; PT 22.4 Sec (11.4-14.6)
[2024-09-06 15:57] LABS: APTT 39.0 Sec (23.4-35.0); Hematocrit 24.3 % (37.0-47.0); Hemoglobin 8.5 g/dL (12.0-16.0); Platelet Count 134 10^3/uL (130-400)
[2024-09-06 15:58] LABS: Glucose - Point of Care 171 mg/dl (70-99)
[2024-09-06 16:04] LABS: Blood Urea Nitrogen 11 mg/dl (7-17); Estimated Creatinine Clearance 93 ml/min; Glucose 143 mg/dl (70-99); Magnesium 3.1 mg/dl (1.6-2.3)
[2024-09-06] MEDS: AZACTAM 2000 MG IV ×2 (16:24)
[2024-09-06] MEDS: NSS 500 IV (16:25)
[2024-09-06] MEDS: STERILE WATER FOR INJECTION 10 ML IV ×2 (16:25)
[2024-09-06 16:36] LABS: B.E. -2.2 mmol/L; HCO3 22.3 mmol/L (21-28); O2 Saturation % 100.0 % (94-98); PCO2 36 mmHg (32-35); PO2 121 mmHg (83-108); Potassium 4.6 mMOL/L (3.5-5.1); Sodium 131 mMOL/L (136-145)
--- NOTE | 2024-09-06 16:45 | PTCARENOTE ---
Patient received from [facility] at 1530; Sedated and intubated; NSR rhythm on monitor; VSS; Distant heart sounds; Epicardial V wire present and insulated with temporary pacemaker turned on - settings 60/15/5; +1 B/L LE edema; +1 DP and +2 radial pulses
present; Lungs diminished at bases; ETT size 8 positioned and secured at 23 cm right lip; Ventilator settings SIMV 14/500/5/5 FiO2 40%; CTx4 to -20 cm wall suction draining bloody drainage - no air leak, tidaling, or crepitus noted; Hypoactive BS;
Wilson catheter in place draining clear, yellow urine; Sternal midline incision covered with Aquacel dressing - CDI, left groin puncture site covered with 4x4 and tegaderm - CDI, left leg incision wrapped in JUSTYN wrap - CDI; Right radial A-line in
place, Gay Salma present in [facility] Cordis at 41 cm - all lines zeroed and leveled; PIVx2 - #20 right forearm and #18 left forearm; Levo, insulin, and precedex infusing - see nursing flowsheets for further details; Repeat ABG sent as per OPAL Hanson;
see nursing documentation for further details.
CO: 4.10
CI: 2.02
SVR: 1,248
[2024-09-06 17:04] LABS: Glucose - Point of Care 185 mg/dl (70-99)
[2024-09-06] MEDS: LR 250 ML IV ×5 (17:08→22:29)
[2024-09-06 18:06] LABS: Glucose - Point of Care 138 mg/dl (70-99)
[2024-09-06] MEDS: SINGULAIR PO (18:11)
--- NOTE | 2024-09-06 18:11 | PTCARENOTE ---
CI < 2; CVNP Therese Hanson and MD Malloy notified and aware; LR bolus given x2
CO: 3.01
CI: 1.49
SVR: 1,381
[2024-09-06 19:11] LABS: Glucose - Point of Care 161 mg/dl (70-99)
[2024-09-06 19:23] LABS: Hematocrit 23.3 % (37.0-47.0); Hemoglobin 8.4 g/dL (12.0-16.0); Platelet Count 224 10^3/uL (130-400)
[2024-09-06 20:00] LABS: Glucose - Point of Care 123 mg/dl (70-99)
--- NOTE | 2024-09-06 20:20 | PTCARENOTE ---
Patient received from previous rn; Sedated and intubated; NSR rhythm on monitor; VSS; Distant heart sounds; Epicardial V wire present and insulated with temporary pacemaker turned on - settings 60/15/5; +1 B/L LE edema; + pulses; Lungs diminished at
bases; ETT size 8.0 at 23 cm right lip; Ventilator settings SIMV 14/500/5/5 FiO2 40%; CTx4 to -20 cm wall suction draining bloody drainage - no air leak, tidaling, or crepitus noted; Hypoactive BS; Wilson catheter in place draining clear, yellow
urine; Sternal midline incision covered with Aquacel dressing - CDI, left groin puncture site covered with 4x4 and tegaderm - CDI, left leg incision wrapped in JUSTYN wrap - CDI; Right radial A-line in place, [place] Salma present in [facility] Cordis at 40 cm -
all lines zeroed and leveled; PIVx2 - #20 right forearm and #18 left forearm; Levo and insulin infusing - see nursing flowsheets for further details.
[2024-09-06] MEDS: SENOKOT-S PO (20:21)
[2024-09-06] MEDS: OFIRMEV 100 IV (21:14)
[2024-09-06] MEDS: ASPIRIN 300 MG RECTAL (21:21)
[2024-09-06 21:45] LABS: B.E. -3.3 mmol/L; HCO3 20.9 mmol/L (21-28); O2 Saturation % 99.6 % (94-98); PCO2 33 mmHg (32-35); PO2 158 mmHg (83-108)
[2024-09-06] MEDS: DILAUDID 0.5 MG IV (21:58)
--- NOTE | 2024-09-06 22:01 | RESPNOTE ---
Pt extubated at 2150 successfully. Pt tolerated extubation well and is now on 6L NC w/ SPO2 of 97%. Pt tried to do the IS post extubation but pt is in too much pain. Will try again later after pain meds given.
[2024-09-06 22:08] LABS: Glucose - Point of Care 136 mg/dl (70-99)
[2024-09-06] MEDS: LIPITOR PO (23:09)
--- NOTE | 2024-09-06 23:12 | PTCARENOTE ---
pt extubated to 6L NC @2150. Pt able to state name and , able to follow all commands. pt c/o incision pain. See MAR.
[2024-09-07] VITALS (32 sets, daily range): BP systolic 109–139; BP diastolic 35–107; BMI 38.7
[2024-09-07] MEDS: PEN VK 250 MG PO ×5 (00:01→23:00)
[2024-09-07] MEDS: ROXICODONE 5 MG PO ×4 (00:04→20:10)
[2024-09-07 00:06] LABS: Glucose - Point of Care 155 mg/dl (70-99)
[2024-09-07] MEDS: PACERONE 200 MG PO ×4 (00:06→23:00)
[2024-09-07 01:06] LABS: Glucose - Point of Care 122 mg/dl (70-99)
[2024-09-07 02:07] LABS: Glucose - Point of Care 122 mg/dl (70-99)
[2024-09-07] MEDS: VANCOCIN 200 IV ×2 (02:13→13:58)
--- NOTE | 2024-09-07 02:18 | W.PN.CT ---
Addendum entered and electronically signed by Juan Diego Malloy MD 09/07/24 09:52:
I saw and examined the patient.
The PA's note was reviewed and I agree with the note.
Comment:
POD#1 s/p CABG x 3, AVR, ELAA
No major overnight events. AVSS. Sinus. 2L. GTTS: levophed OFF since 830AM
- De-line
- Wean to RA as tolerated
- Maintain CTs today
- Maintain courtney today - diuresis later today
- Follow Hgb
- OOB/IS
Original Note:
Today's Communication / Plan
-
- No major events overnight
- Extubated to LFNC 2110 hrs
- Gtt's: levophed @ 1-2 mcg, insulin
- RA 5 PA 26/10 CO 3.82 CI 1.88 SVR 1151
- CTs 2M 75/190 cc, 2 PL 325/515 cc out in 12/24 hrs
- UOP 360/975 cc in 12/24 hrs
- wean down/off O2, IS use reinforced
- Continue current meds: Lipitor, ASA, amio, Plavix, Mag ox, metoprolol 12.5 mg
- continue home meds PPI, Singulair, Synthroid, lidocaine patch, gabapentin
- Pen VK and vanco per ID (hives with cephalosporins)
- Bowel regimen
- OOB, ambulate as tolerated
Assessment / Plan
-
NSTEMI/MVCAD s/p CABG x3 (MAXI to LAD, GSV to OM2, GSV to RPDA), THOMAS clip 45 mm, SAVR (#23 Inspiris Resilia) with Dr. Malloy 09/07/2024 POD #1
Post op COLEMAN: Normal BiV function, AVR without PVL/AI, MG 4, trace MR, trace to mild TR, THOMAS excluded, good flow in all grafts
Syncope
DM1
hyponatremia
HTN
HLD
hypothyroidism
Parotid tumor s/p resection
endometrial cancer s/p hysterectomy
IBS
morbid obesity
Acute post op pain
Acute post op respiratory insufficiency
Acute post op anemia (expected)
Subjective
Procedure
s/p CABG x3 (MAXI to LAD, GSV to OM2, GSV to RPDA), THOMAS clip 45 mm, SAVR (#23 Inspiris Resilia) with Dr. Malloy 09/07/2024
-
Date of Service: September 07, 2024
Objective Data
-
PT 22.4 Sec (11.4-14.6) H 09/06/24 15:35
INR 1.96 09/06/24 15:35
APTT 39.0 Sec (23.4-35.0) H 09/06/24 15:35
Vital Signs
Vital Signs
Temp Pulse Resp BP Pulse Ox
99.5 F 62 15 125/54 100
09/07/24 02:00 09/07/24 02:00 09/07/24 02:00 09/07/24 02:00 09/07/24 02:00
CT Intake/Output/Weight
09/06/24 09/06/24 09/07/24
06:59 18:59 06:59
Intake Total 156 / 156 804.4 / 8.5 1254.1 / 2057.5
Output Total 920 / 1545 625 / 1545
Balance 156 / 156 -115.6 / 513.5 629.1 / 513.5
SaO2: 100
Physical Exam
-
General: Awake and Oriented
Cardiovascular: Regular rate & rhythm and No Murmurs
Respiratory: Clear, Equal and Decreased Breath Sounds
Sternum: Stable
Incision: Clean, Dry and Intact
Extremities: Edema +2 and No Erythema
Data Reviewed
-
Lab Results: Results Reviewed
Medications: Active Meds Reviewed
Chest X-Ray: Report Reviewed and Image Reviewed
ECG: Report Reviewed
[2024-09-07 03:12] LABS: Glucose - Point of Care 134 mg/dl (70-99)
[2024-09-07 03:12] LABS: Glucose - Point of Care 179 mg/dl (70-99)
[2024-09-07 03:19] LABS: Hematocrit 21.3 % (37.0-47.0); Hemoglobin 7.5 g/dL (12.0-16.0); Mean Corp Hgb Conc. 35.2 g/dL (33.0-37.0); Mean Corpuscular Volume 83.5 fL (81.0-99.0); Platelet Count 195 10^3/uL (130-400); Red Cell Dist. Width 13.2 % (11.5-14.5)
[2024-09-07 03:44] LABS: Blood Urea Nitrogen 16 mg/dl (7-17); Calcium 7.9 mg/dl (8.4-10.2); Carbon Dioxide 25 mmol/L (22-30); Chloride 106 mmol/L (98-107); Estimated Creatinine Clearance 70 ml/min; Glucose 158 mg/dl (70-99); Magnesium 2.5 mg/dl (1.6-2.3); Potassium 5.1 mmol/L (3.5-5.1); Sodium 130 mmol/L (135-145); eGFR > 60.00
[2024-09-07 04:10] LABS: Glucose - Point of Care 140 mg/dl (70-99)
[2024-09-07] MEDS: DILAUDID 0.25 MG IV (04:37)
[2024-09-07] MEDS: SYNTHROID 50 MCG PO (05:13)
[2024-09-07] MEDS: TYLENOL 1000 MG PO ×3 (05:14→23:00)
[2024-09-07] MEDS: NOVOLIN R INSULIN INFUSION 100 IV (05:34)
[2024-09-07 06:07] LABS: Glucose - Point of Care 113 mg/dl (70-99)
[2024-09-07] MEDS: LR 250 ML IV (06:18)
--- NOTE | 2024-09-07 07:32 | PTCARENOTE ---
Pt received from Outgoing RN, POD 1 in bed, CTx4, Rt IJ cordis/heron, Rt Olive, RA, cpap qhs, levo @ 2, insulin gtt, courtney, NSR, keep map >65, CO/CI 4 &2 SVR 1000, Clear liquid diet this AM, labs reviewed, pain management.
--- NOTE | 2024-09-07 07:34 | W.PN.INTV ---
Today's Communication / Plan
Recommendations
Doing well post extubation, titrating off gtts
Having trouble with pill swallowing--consider speech evaluation
Aspiration precautions
Further postop management per team
Assessment
-
Patient is a 74-year-old female with previous history of asthma, RATNA on CPAP, hypertension, diabetes, CAD presenting for elective cardiac surgery. Underwent cardiac catheterization on 08/01/2024 with multivessel CAD following abnormal stress test.
Underwent CAB and postoperatively transferred to CVICU for further management.
Multivessel CAD status post CABG x 3, AVR 09/06/2024
Unstable angina/NSTEMI
Moderate to severe aortic stenosis
Syncopal episode 05/2024
Perioperative mechanical ventilation
Postop anemia
Conditions present prior to admission
Neuropathy
Asthma
RATNA on CPAP
Hypertension
Hyperlipidemia
Hypothyroidism
OA w/ significant cervical and B/L shoulder involvement
Parotid tumor s/p Rx
IBS
Reflux
Diabetes
Cataract status post surgery
Vitreous detachment with neovascularization
Endometrial and uterine cancer 2003 status post PRISCILA
Vasovagal syncope
Obesity
Plan
S/p CAB/AVR POD #1
Titrating off pressors per protocol
ECHO reviewed with normal function
PA catheter readings reviewed
Management of chest tubes per primary service
Pain control
RASS goal of 0 to -1
Intubated for procedure, extubated and doing well
ABG(s) reviewed/adequate
CXR with no obvious opacities/infiltrates, RHD/low lung volumes, ETT in good position, lines/tubes in place
Repeat with stable postop changes
Maintain supplement oxygen as needed
Prior history of pulmonary disease-RATNA on CPAP; Asthma
Can resume CPAP post extubation/nightly if needed
Prior PFTs reviewed-mild obstruction
Resume home inhalers when able/Can add nebulizers if needed
Aspiration precautions
Encouraged incentive spirometry, OOB/ambulation/early mobility
Advance diet as tolerated following extubation
GI prophylaxis if indicated for mechanical ventilation >48 hours
Having trouble with pills, can consider speech eval for swallowing function
Monitor critical I/O's
Wilson/chest tube output
Hb/platelets postoperatively stable
Trend CBC for now
Can transfuse if indicated for Hb <7, plt <50 in surgical patients
DVT prophylaxis including SCDs
Insulin protocol initiated and ongoing
Transition to SQ/off as indicated per team
Diagnostic Data
Chest X-Ray: 09/06/24-Parenchymal opacity within the mid to lower lungs bilaterally, which is likely atelectasis. No evidence for significant pneumothorax.
09/03/24- Hypoaerated lungs without consolidation.
CT Scan: CT 09/03/24- Linear densities within both lower lungs, compatible with linear atelectasis and/or scarring. There is no significant pleural effusion and no significant pericardial effusion.
Echo: COLEMAN 09/06/24- Overall LVEF is approximately 60% with no RWMA.Mild concentric left ventricular hypertrophy. Stage II Diastolic dysfunction. Severely dilated left atrium. Moderately dilated right atrium. Trace tricuspid regurgitation. Mild
pulmonic insufficiency. Severe aortic stenosis. Mild aortic insufficiency. ALEXANDRA calculates to 1.1 cm2 by continuity equation. Mild mitral regurgitation. Posterior MV annulus is calcified. Mild mitral stenosis.
Mild sessile atheroma seen in the descending aorta and distal arch.
[facility] 08/01/24- CONCLUSIONS
1. Multivessel CAD with iFR positive LAD.
2. Elevated LVEDP.
PFT's: 09/03/24- FEV1/FVC Ratio of 67%. FEV1 was 1.45L / 70% of predicted. FVC was 2.17L / 81% of predicted.
Spirometry post bronchodilator: FEV1 was 1.68L / 82% of predicted.
Changes suggest mild obstruction.
Reports and relevant images were personally reviewed.
Critical Care time 33 mins -- The patient is admitted for acute critical illness for the treatment of vital organ failure and/or prevention of further life-threatening conditions. Total care includes time spent in review of history, physical exam,
medications, hemodynamic/ventilator parameters, laboratory data, imaging and discussion with house staff, pharmacy, respiratory therapy, communications consultant, and nursing.
Subjective Dataa
Subjective Data
Date of Service:
Date of Service: September 07, 2024
Chief Complaint: [employer] Follow Up
Subjective:
Extubated and doing well, titrating off gtts
Having trouble swallowing pills per patient
No complaints of SOB
Objective Data
Data Reviewed
Vital Signs / I&O / Oxygen:
Vital Signs
Temp Pulse Resp BP Pulse Ox
99.2 F 72 13 134/49 97
09/07/24 07:00 09/07/24 07:15 09/07/24 07:15 09/07/24 07:00 09/07/24 07:15
Intake and Output
09/06/24 09/07/24 09/08/24
06:59 06:59 06:59
Intake Total 156 / 156 2233.9 / 2264.9 31.0 / 31.0
Output Total 1745 / 1770
Balance 156 / 156 488.9 / 494.9 6.0 / 6.0
SaO2 [SIMV] 100
SaO2 97
Nasal Cannula flow liters per 6
minute
Physical Exam
General: Comfortable and Other (NAD)
HEENT: Normocephalic, Anicteric and Moist Mucous Membranes
Cardiovascular: S1-S2 and Regular Rhythm
Respiratory: Clear, Non-Labored Respirations and Chest Tube
GI: Soft, Non Distended and Non Tender
Neurology: Awake, Alert, Oriented and No Motor Deficits
Skin: Warm, Dry and Other (pale)
Labs/Micro/Reports
Lab Data
09/07/24 03:07
09/07/24 03:07
Laboratory Results
09/06/24 09/06/24 09/06/24
12:00 15:35 16:28
PT 22.4 H
INR 1.96
APTT Cancelled 39.0 H
pH 7.31 L 7.40
pCO2 45 H 36 H
pO2 124 H 121 H
HCO3 22.7 22.3
O2 Delivery Level
09/06/24
21:39
PT
INR
APTT
pH 7.41
pCO2 33
pO2 158 H
HCO3 20.9 L
O2 Delivery Level
Microbiology
09/03/24 17:40 Nose MRSA Screen - Final
No Methicillin Resistant Staphylococcus aureus isolated.
09/03/24 17:40 Urine Urine Culture - Final
Streptococcus agalactiae
[2024-09-07 08:14] LABS: Glucose - Point of Care 91 mg/dl (70-99)
[2024-09-07] MEDS: FLEXERIL 5 MG PO ×2 (08:36→23:17)
[2024-09-07] MEDS: LOPRESSOR 12.5 MG PO ×2 (08:36→20:09)
[2024-09-07] MEDS: NEURONTIN 100 MG PO ×3 (08:37→22:55)
[2024-09-07] MEDS: FEOSOL 325 MG PO (08:37)
[2024-09-07] MEDS: PROTONIX 40 MG PO (08:37)
[2024-09-07] MEDS: ASPIR LOW (ENTERIC COATED) 81 MG PO (08:37)
[2024-09-07] MEDS: VITAMIN C 500 MG PO (08:37)
[2024-09-07] MEDS: PLAVIX 75 MG PO (08:37)
[2024-09-07] MEDS: SENOKOT-S 1 TABLET PO ×2 (08:37→20:09)
[2024-09-07] MEDS: LIDOCAINE 4% PATCH 1 PATCH TOPICAL (08:37)
[2024-09-07] MEDS: MAGNESIUM OXIDE PO ×2 (08:38→20:11)
[2024-09-07] MEDS: BACTROBAN 2% OINTMENT 1 APPLIC NASAL ×2 (08:38→20:09)
[2024-09-07] MEDS: NOVOLOG FLEXPEN 4 UNITS SC ×2 (08:49→12:27)
--- NOTE | 2024-09-07 09:08 | W.PN.ANS.POP ---
Anesthesia Post Operative
- Anesthesia Post Op Note
Vital Signs Stable-See Nursing Note: Yes
Airway Patent: Yes
Adequate Pain Control: Yes
Change in Mental Status: No
Current Postoperative Nausea & Vomiting: No
Anesthesia Complications: No
General Anesthetic Recall: No
Unplanned Admission: No
Post Op Hydration Adequate: Yes
[2024-09-07 10:00] LABS: Glucose - Point of Care 120 mg/dl (70-99)
--- NOTE | 2024-09-07 10:19 | W.PN.CARDCBS ---
Today's Communication / Plan
-
Wean Levophed as tolerated
Resume goal-directed medical therapy when able
Postoperative care
Impression / Plan
-
Primary Application Integration Engineer: Dr. Tate of [facility]
Assessment:
Presented with CP to [facility], was scheduled for CABG 09/16/24 as OP, transferred to for urgent AVR/CABG
Status post CABG x 3 related to LAD, GSV to OM 2, GSV to RPDA, THOMAS clip, #23 bioprosthetic AVR 09/06/24
Multivessel CAD
Aortic stenosis
Type 1 diabetes
Peripheral neuropathy
Hypertension
Hyperlipidemia
History of syncopal episode 05/2024
Asthma
IBS
Long COVID
Laryngopharyngeal reflux
Parotid tumor status postresection
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
Hypothyroidism
OA
Echo 07/31/2024: EF 55 to 60%, mild concentric LVH, mild left atrial enlargement, mild MAC, moderate aortic stenosis with peak/mean gradients 37/22 mmHg, ALEXANDRA 1.1 cm�, mild mitral, tricuspid, aortic, pulmonic insufficiency, grade 1 diastolic
dysfunction, PASP 20 millimeters mercury
Plan:
-Status post CABG x 3 related to LAD, GSV to OM 2, GSV to RPDA, THOMAS clip, #23 bioprosthetic AVR 09/06/24
- Extubated 09/06/2024
- Remains on Levophed, weaning as tolerated
-EKG SR with some T wave flattening. required pacing for 10 minutes intraop, sinus since that time; EKG remains sinus rhythm LVH with repol abnormality no significant change from preprocedure
-continue asa, statin
-was on toprol and losartan pre op, resume when able
-continue post op care
-d/w nursing, CT surgical team
Progress Note - Application Integration Engineer
Subjective
Date of Service: September 07, 2024
Patient seen and examined's morning. No acute events overnight. Patient reporting incisional discomfort and pain with deep inspiration. Denies other shortness of breath, lightheadedness, dizziness, or weakness.
Objective
Labs:
09/07/24 03:07
09/07/24 03:07
Labs
Hgb 7.5 g/dL (12.0-16.0) L 09/07/24 03:07
Hct 21.3 % (37.0-47.0) L 09/07/24 03:07
Plt Count 195 10^3/uL (130-400) 09/07/24 03:07
PT 22.4 Sec (11.4-14.6) H 09/06/24 15:35
INR 1.96 09/06/24 15:35
APTT 39.0 Sec (23.4-35.0) H 09/06/24 15:35
Sodium 130 mmol/L (135-145) L 09/07/24 03:07
Potassium 5.1 mmol/L (3.5-5.1) D 09/07/24 03:07
BUN 16 mg/dl (7-17) 09/07/24 03:07
Creatinine 0.8 mg/dL (0.6-1.0) 09/07/24 03:07
Glucose 158 mg/dl (70-99) H 09/07/24 03:07
Troponins
09/04/24
10:58
Troponin I 0.154 H*
Vital Signs and I&O:
Vital Signs
Temp Pulse Resp BP Pulse Ox
99.3 F 80 20 130/45 98
09/07/24 08:00 09/07/24 10:00 09/07/24 10:00 09/07/24 10:00 09/07/24 10:00
Vital Signs
Temp Pulse Resp BP Pulse Ox
99.3 F 80 20 130/45 98
09/07/24 08:00 09/07/24 10:00 09/07/24 10:00 09/07/24 10:00 09/07/24 10:00
Intake & Output
09/05/24 09/06/24 09/07/24 09/08/24
06:59 06:59 06:59 06:59
Intake Total 1040 / 1040 156 / 156 2233.9 / 2264.9 229.6 / 229.6
Output Total 450 / 450 1745 / 1770 160 / 160
Balance 590 / 590 156 / 156 488.9 / 494.9 69.6 / 69.6
Physical Exam
Physical Exam
GEN: No distress, AO x 3, obese
HEENT: supple, mmm
LUNGS: Respiratory effort, CTA bilaterally, no wheezes or rhonchi
CV: Reg, S1/S2, no murmur
EXT: No cyanosis, clubbing, edema
NEURO: Gross nonfocal
SKIN: Warm, pink, dry. No rash. Sternotomy dressing c/d/i. CTs in place.
: roz
--- NOTE | 2024-09-07 12:00 | PTCARENOTE ---
Pt reassessment unchanged from previous, vss, RA, CT x4, on insulin gtt, dced Olive/heron, keep courtney for today to diuresis this afternoon. 1 unit Prbc given this morning for hgb 7.5.
[2024-09-07 12:23] LABS: Glucose - Point of Care 169 mg/dl (70-99)
[2024-09-07] MEDS: NSS IV (13:58)
[2024-09-07 14:04] LABS: Glucose - Point of Care 113 mg/dl (70-99)
--- NOTE | 2024-09-07 15:21 | PTCARENOTE ---
Pt reassessment unchanged from previous, vss, ra, oob in chair, insulin gtt till tomorrow, x1 dose IV lasix 40mg this afternoon.
[2024-09-07] MEDS: LASIX 40 MG IV (15:29)
[2024-09-07 16:06] LABS: Glucose - Point of Care 130 mg/dl (70-99)
[2024-09-07] MEDS: NOVOLOG FLEXPEN SC (16:06)
[2024-09-07] MEDS: SINGULAIR 10 MG PO (17:04)
[2024-09-07 18:24] LABS: Glucose - Point of Care 187 mg/dl (70-99)
[2024-09-07 19:44] LABS: Glucose - Point of Care 144 mg/dl (70-99)
[2024-09-07] MEDS: REMOVE LIDOCAINE PATCH 1 PATCH REMOVE (20:09)
--- NOTE | 2024-09-07 20:30 | PTCARENOTE ---
pt received from previous rn. pt AAOx4, NSR per tele monitor HR 80s. + pulses, +1 b/l LE edema, v wire set to VVI 60/15/5. pox 96% on RA lungs diminsihed, CTx4 to -20cm wall suction draining serosanguineous fluid, no air leak/tidaling/crepitus.
occasional productive cough. +bs, pt passing flatus, courtney draining clear yellow urine. all surgical incisions intact. CT dressing c/d/i. RIJ cordis infusing KVO, PIV infusing insulin per glycemic protocol. plan of care discussed questions
encouraged
[2024-09-07 21:07] LABS: Glucose - Point of Care 189 mg/dl (70-99)
[2024-09-07 21:13] LABS: Glucose - Point of Care 153 mg/dl (70-99)
[2024-09-07 22:07] LABS: Glucose - Point of Care 145 mg/dl (70-99)
[2024-09-07] MEDS: LIPITOR 80 MG PO (23:00)
[2024-09-07 23:04] LABS: Glucose - Point of Care 110 mg/dl (70-99)
[2024-09-07 23:58] LABS: Glucose - Point of Care 103 mg/dl (70-99)
[2024-09-08] VITALS (29 sets, daily range): BP systolic 97–153; BP diastolic 28–69; BMI 38.1
--- NOTE | 2024-09-08 00:34 | PTCARENOTE ---
VSS, NSR per tele monitor assessment unchanged
[2024-09-08 01:58] LABS: Glucose - Point of Care 113 mg/dl (70-99)
--- NOTE | 2024-09-08 03:35 | PTCARENOTE ---
pt placed on home CPAP machine, VSS, NSR, assessment unchanged
[2024-09-08 04:04] LABS: Glucose - Point of Care 116 mg/dl (70-99)
[2024-09-08 04:27] LABS: Hematocrit 21.4 % (37.0-47.0); Hemoglobin 7.4 g/dL (12.0-16.0); Mean Corp Hgb Conc. 34.6 g/dL (33.0-37.0); Mean Corpuscular Volume 85.9 fL (81.0-99.0); Platelet Count 148 10^3/uL (130-400); Red Cell Dist. Width 13.4 % (11.5-14.5)
[2024-09-08 04:32] LABS: Blood Urea Nitrogen 17 mg/dl (7-17); Calcium 8.6 mg/dl (8.4-10.2); Carbon Dioxide 26 mmol/L (22-30); Chloride 100 mmol/L (98-107); Estimated Creatinine Clearance 81 ml/min; Glucose 106 mg/dl (70-99); Magnesium 2.2 mg/dl (1.6-2.3); Potassium 4.5 mmol/L (3.5-5.1); Sodium 125 mmol/L (135-145); eGFR > 60.00
[2024-09-08 06:08] LABS: Glucose - Point of Care 97 mg/dl (70-99)
[2024-09-08] MEDS: NOVOLIN R INSULIN INFUSION 100 IV ×2 (06:09→17:28)
--- NOTE | 2024-09-08 06:10 | W.PN.CT ---
Addendum entered and electronically signed by Juan Diego Malloy MD 09/08/24 09:38:
I saw and examined the patient.
The PA's note was reviewed and I agree with the note.
Comment:
POD#2
Aggressive diuresis today; creat 0.7
Transfuse additional unit PRBC today
D/C mediastinal CTs, maintain pleural CTs
OOB/IS
ABX for UTI per ID (5-7 day course ?)
Original Note:
Today's Communication / Plan
-
- No major events overnight
- s/p 1 U PRBC, Hgb 7.5->7.4 this AM
- CTs 2M 15/85 cc, 2 PL 235/300 cc out in 12/24 hrs
- UOP 460/1495 cc in 12/24 hrs
- Na 130->125, fluid restricted and repeat BMP this afternoon
- on 6 L NC, wean down/off O2, IS use reinforced
- Continue current meds: Lipitor, ASA, amio, Plavix, Mag ox, metoprolol 12.5 mg
- continue home meds PPI, Singulair, Synthroid, lidocaine patch, gabapentin
- Pen VK and vanco per ID (hives with cephalosporins)
- Bowel regimen
- OOB, ambulate as tolerated
Assessment / Plan
-
NSTEMI/MVCAD s/p CABG x3 (MAXI to LAD, GSV to OM2, GSV to RPDA), THOMAS clip 45 mm, SAVR (#23 Inspiris Resilia) with Dr. Malloy 09/07/2024 POD #2
Post op COLEMAN: Normal BiV function, AVR without PVL/AI, MG 4, trace MR, trace to mild TR, THOMAS excluded, good flow in all grafts
Syncope
DM1
hyponatremia
HTN
HLD
hypothyroidism
Parotid tumor s/p resection
endometrial cancer s/p hysterectomy
IBS
morbid obesity
Acute post op pain
Acute post op respiratory insufficiency
Acute post op anemia (expected)
Subjective
Procedure
s/p CABG x3 (MAXI to LAD, GSV to OM2, GSV to RPDA), THOMAS clip 45 mm, SAVR (#23 Inspiris Resilia) with Dr. Malloy 09/07/2024
-
Date of Service: September 08, 2024
Objective Data
-
Lab Results
09/08/24 04:01
09/08/24 04:01
PT 22.4 Sec (11.4-14.6) H 09/06/24 15:35
INR 1.96 09/06/24 15:35
APTT 39.0 Sec (23.4-35.0) H 09/06/24 15:35
Vital Signs
Vital Signs
Temp Pulse Resp BP Pulse Ox
98.6 F 76 18 126/46 96
09/08/24 02:00 09/08/24 06:00 09/08/24 06:00 09/08/24 06:00 09/08/24 06:00
CT Intake/Output/Weight
09/07/24 09/07/24 09/08/24
06:59 18:59 06:59
Intake Total 1429.5 / 2264.9 1345.1 / 1529.9 184.8 / 1529.9
Output Total 825 / 1770 1169 / 2009 842009
Balance 604.5 / 494.9 175.1 / -480.1 -655.2 / -480.1
SaO2: 96
Physical Exam
-
General: Awake and Oriented
Cardiovascular: Regular rate & rhythm
Respiratory: Clear and Decreased Breath Sounds
Sternum: Stable
Incision: Clean, Dry and Intact
Extremities: Edema +1
Data Reviewed
-
Lab Results: Results Reviewed
Medications: Active Meds Reviewed
Chest X-Ray: Report Reviewed and Image Reviewed
ECG: Report Reviewed
[2024-09-08] MEDS: TYLENOL 1000 MG PO ×3 (06:24→22:05)
[2024-09-08] MEDS: SYNTHROID 50 MCG PO (06:24)
[2024-09-08] MEDS: PEN VK 250 MG PO ×3 (06:24→17:00)
--- NOTE | 2024-09-08 07:40 | W.PN.INTV ---
Today's Communication / Plan
Recommendations
Off pressors, remains on insulin gtt
Chest tubes/PAC discontinued
Pain control per team
Rehab, OOB encouraged, PT/IS
Can likely transfer to tele once off insulin gtt
Assessment
-
Patient is a 74-year-old female with previous history of asthma, RATNA on CPAP, hypertension, diabetes, CAD presenting for elective cardiac surgery. Underwent cardiac catheterization on 08/01/2024 with multivessel CAD following abnormal stress test.
Underwent CAB and postoperatively transferred to CVICU for further management.
Multivessel CAD status post CABG x 3, AVR 09/06/2024
Unstable angina/NSTEMI
Moderate to severe aortic stenosis
Syncopal episode 05/2024
Perioperative mechanical ventilation
Postop anemia
Conditions present prior to admission
Neuropathy
Asthma
RATNA on CPAP
Hypertension
Hyperlipidemia
Hypothyroidism
OA w/ significant cervical and B/L shoulder involvement
Parotid tumor s/p Rx
IBS
Reflux
Diabetes
Cataract status post surgery
Vitreous detachment with neovascularization
Endometrial and uterine cancer 2003 status post PRISCILA
Vasovagal syncope
Obesity
Plan
S/p CAB/AVR POD #2
Titrated off pressors per protocol
ECHO reviewed with normal function
PA catheter discontinued
Management of chest tubes per primary service
Pain control
RASS goal of 0 to -1
Intubated for procedure, extubated and doing well
ABG(s) reviewed/adequate
CXR with no obvious opacities/infiltrates, RHD/low lung volumes, ETT in good position, lines/tubes in place
Repeat with stable postop changes
Maintain supplement oxygen as needed
Prior history of pulmonary disease-RATNA on CPAP; Asthma
Can resume CPAP post extubation/nightly if needed
Prior PFTs reviewed-mild obstruction
Resume home inhalers when able/Can add nebulizers if needed
Aspiration precautions
Encouraged incentive spirometry, OOB/ambulation/early mobility
Advance diet as tolerated following extubation
GI prophylaxis if indicated for mechanical ventilation >48 hours
Having trouble with pills, can consider speech eval for swallowing function
Monitor critical I/O's
Wilson/chest tube output
Hb/platelets postoperatively stable
Trend CBC for now
Can transfuse if indicated for Hb <7, plt <50 in surgical patients
DVT prophylaxis including SCDs
Insulin protocol initiated and ongoing
Transition to SQ/off as indicated per team
Diagnostic Data
Chest X-Ray: 09/06/24-Parenchymal opacity within the mid to lower lungs bilaterally, which is likely atelectasis. No evidence for significant pneumothorax.
09/03/24- Hypoaerated lungs without consolidation.
CT Scan: CT 09/03/24- Linear densities within both lower lungs, compatible with linear atelectasis and/or scarring. There is no significant pleural effusion and no significant pericardial effusion.
Echo: COLEMAN 09/06/24- Overall LVEF is approximately 60% with no RWMA.Mild concentric left ventricular hypertrophy. Stage II Diastolic dysfunction. Severely dilated left atrium. Moderately dilated right atrium. Trace tricuspid regurgitation. Mild
pulmonic insufficiency. Severe aortic stenosis. Mild aortic insufficiency. ALEXANDRA calculates to 1.1 cm2 by continuity equation. Mild mitral regurgitation. Posterior MV annulus is calcified. Mild mitral stenosis.
Mild sessile atheroma seen in the descending aorta and distal arch.
[facility] 08/01/24- CONCLUSIONS
1. Multivessel CAD with iFR positive LAD.
2. Elevated LVEDP.
PFT's: 09/03/24- FEV1/FVC Ratio of 67%. FEV1 was 1.45L / 70% of predicted. FVC was 2.17L / 81% of predicted.
Spirometry post bronchodilator: FEV1 was 1.68L / 82% of predicted.
Changes suggest mild obstruction.
Reports and relevant images were personally reviewed.
Critical Care time 31 mins -- The patient is admitted for acute critical illness for the treatment of vital organ failure and/or prevention of further life-threatening conditions. Total care includes time spent in review of history, physical exam,
medications, hemodynamic/ventilator parameters, laboratory data, imaging and discussion with house staff, pharmacy, respiratory therapy, chemical lab technician, and nursing.
Subjective Dataa
Subjective Data
Date of Service:
Date of Service: September 08, 2024
Chief Complaint: [employer] Follow Up
Subjective:
No new complaints, stable on RA
Feels tired, swallowing is better
Objective Data
Data Reviewed
Vital Signs / I&O / Oxygen:
Vital Signs
Temp Pulse Resp BP Pulse Ox
98.6 F 78 22 126/46 100
09/08/24 07:00 09/08/24 07:00 09/08/24 07:00 09/08/24 06:00 09/08/24 07:00
Intake and Output
09/07/24 09/08/24 09/09/24
06:59 06:59 06:59
Intake Total 2233.9 / 2264.9 1529.9 / 1541.3 11.4 / 11.4
Output Total 1745 / 1770 2009 / 2114 105 / 105
Balance 488.9 / 494.9 -480.1 / -573.7 -93.6 / -93.6
SaO2 [SIMV] 100
SaO2 100
Nasal Cannula flow liters per 6
minute
Physical Exam
General: Comfortable and Other (NAD)
HEENT: Normocephalic, Anicteric and Moist Mucous Membranes
Cardiovascular: S1-S2 and Regular Rhythm
Respiratory: Clear and Non-Labored Respirations
GI: Soft, Non Distended and Non Tender
Neurology: Awake, Alert, Oriented and No Motor Deficits
Skin: Warm, Dry and Other (pale)
Labs/Micro/Reports
Lab Data
09/08/24 04:01
Microbiology
09/03/24 17:40 Nose MRSA Screen - Final
No Methicillin Resistant Staphylococcus aureus isolated.
[2024-09-08 08:55] LABS: Glucose - Point of Care 156 mg/dl (70-99)
[2024-09-08] MEDS: ZOFRAN 4 MG IV (08:56)
[2024-09-08] MEDS: ASPIR LOW (ENTERIC COATED) 81 MG PO (09:01)
[2024-09-08] MEDS: PLAVIX 75 MG PO (09:01)
[2024-09-08] MEDS: LOPRESSOR 12.5 MG PO ×2 (09:01→20:04)
[2024-09-08] MEDS: PACERONE 200 MG PO ×3 (09:01→22:06)
[2024-09-08] MEDS: LIDOCAINE 4% PATCH TOPICAL (09:02)
[2024-09-08] MEDS: BACTROBAN 2% OINTMENT 1 APPLIC NASAL ×2 (09:03→20:05)
[2024-09-08] MEDS: MAGNESIUM OXIDE PO (09:03)
[2024-09-08] MEDS: NOVOLOG FLEXPEN 4 UNITS SC ×3 (09:03→16:59)
[2024-09-08] MEDS: PROTONIX 40 MG PO (09:09)
--- NOTE | 2024-09-08 09:29 | PTCARENOTE ---
Received pt from manager floral RN; pt AAOx3 and resting comfortably in bed; NSR on monitor and VSS; Epicardial V wire insulated; RIJ Cordis and PIV x2 patent; Lungs diminished; CT x4 to -20 wall suction no air leak and no crepitus noted; positive
bowel sounds; Wilson catheter draining yellow urine; palpable pulses throughout; +1 generalized edema noted; all surgical sites C/D/I; see nursing documentation for further details.
--- NOTE | 2024-09-08 09:38 | W.PN.CARDCBS ---
Today's Communication / Plan
-
IV diuresis, additional PRBC per CT surgery
Encourage out of bed, incentive spirometer
Antibiotics
Impression / Plan
-
Primary Diamond Sizer: Dr. Tate of [facility]
Assessment:
Presented with CP to [facility], was scheduled for CABG 09/16/24 as OP, transferred to for urgent AVR/CABG
Status post CABG x 3 related to LAD, GSV to OM 2, GSV to RPDA, THOMAS clip, #23 bioprosthetic AVR 09/06/24
Anemia status post 1 unit PRBC
Multivessel CAD
Aortic stenosis
Type 1 diabetes
Peripheral neuropathy
Hypertension
Hyperlipidemia
History of syncopal episode 05/2024
Asthma
IBS
Long COVID
Laryngopharyngeal reflux
Parotid tumor status postresection
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
Hypothyroidism
OA
Echo 07/31/2024: EF 55 to 60%, mild concentric LVH, mild left atrial enlargement, mild MAC, moderate aortic stenosis with peak/mean gradients 37/22 mmHg, ALEXANDRA 1.1 cm�, mild mitral, tricuspid, aortic, pulmonic insufficiency, grade 1 diastolic
dysfunction, PASP 20 millimeters mercury
Plan:
-Status post CABG x 3 related to LAD, GSV to OM 2, GSV to RPDA, THOMAS clip, #23 bioprosthetic AVR 09/06/24
- Extubated 09/06/2024
- Off vasopressor support
� IV diuresis
� Antibiotics for possible UTI
-EKG SR with some T wave flattening. required pacing for 10 minutes intraop, sinus since that time; EKG remains sinus rhythm LVH with repol abnormality no significant change from preprocedure
-continue asa, statin
-was on toprol and losartan pre op, resume when able
-continue post op care
-d/w nursing, CT surgical team
Progress Note - Diamond Sizer
Subjective
Date of Service: September 08, 2024
Patient seen and examined's morning. No acute events overnight. Patient in bed reporting fatigue and nausea. Denies chest pain, shortness of breath, weakness
Objective
Labs:
09/08/24 04:01
Labs
Hgb 7.4 g/dL (12.0-16.0) L 09/08/24 04:01
Hct 21.4 % (37.0-47.0) L 09/08/24 04:01
Plt Count 148 10^3/uL (130-400) D 09/08/24 04:01
PT 22.4 Sec (11.4-14.6) H 09/06/24 15:35
INR 1.96 09/06/24 15:35
APTT 39.0 Sec (23.4-35.0) H 09/06/24 15:35
Sodium 125 mmol/L (135-145) L 09/08/24 04:01
Potassium 4.5 mmol/L (3.5-5.1) 09/08/24 04:01
BUN 17 mg/dl (7-17) 09/08/24 04:01
Creatinine 0.7 mg/dL (0.6-1.0) 09/08/24 04:01
Glucose 106 mg/dl (70-99) H 09/08/24 04:01
Vital Signs and I&O:
Vital Signs
Temp Pulse Resp BP Pulse Ox
98.5 F 82 20 153/49 95
09/08/24 08:00 09/08/24 09:01 09/08/24 08:00 09/08/24 09:01 09/08/24 09:32
Vital Signs
Temp Pulse Resp BP Pulse Ox
98.5 F 82 20 153/49 95
09/08/24 08:00 09/08/24 09:01 09/08/24 08:00 09/08/24 09:01 09/08/24 09:32
Intake & Output
09/06/24 09/07/24 09/08/24 09/09/24
06:59 06:59 06:59 06:59
Intake Total 156 / 156 2233.9 / 2264.9 1529.9 / 1541.3 34.2 / 34.2
Output Total 1745 / 1770 2009 / 2114 240 / 240
Balance 156 / 156 488.9 / 494.9 -480.1 / -573.7 -205.8 / -205.8
Physical Exam
Physical Exam
GEN: No distress, AO x 3, obese
HEENT: supple, mmm
LUNGS: Respiratory effort, CTA bilaterally, no wheezes or rhonchi
CV: Reg, S1/S2, no murmur
EXT: No cyanosis, clubbing, edema
NEURO: Gross nonfocal
SKIN: Warm, pink, dry. No rash. Sternotomy dressing c/d/i. CTs in place.
: roz
[2024-09-08] MEDS: LASIX 40 MG IV ×3 (10:36→22:04)
[2024-09-08 10:37] LABS: Glucose - Point of Care 177 mg/dl (70-99)
[2024-09-08] MEDS: VITAMIN C PO (10:37)
[2024-09-08] MEDS: NEURONTIN PO (10:37)
[2024-09-08] MEDS: SENOKOT-S PO (10:37)
[2024-09-08] MEDS: FEOSOL PO (10:37)
--- NOTE | 2024-09-08 10:58 | PTCARENOTE ---
Mediastinal Chest tubes X2 removed per CTPA order.
--- NOTE | 2024-09-08 11:23 | PTCARENOTE ---
1 unit of PRBC infusing per CTPA order.
[2024-09-08 12:03] LABS: Glucose - Point of Care 157 mg/dl (70-99)
--- NOTE | 2024-09-08 12:24 | PTCARENOTE ---
NSR on monitor and VSS; 1 unit PRBC infusing; assessment unchanged and pt rest comfortably in bed.
[2024-09-08 14:14] LABS: Glucose - Point of Care 170 mg/dl (70-99)
[2024-09-08 16:10] LABS: Blood Urea Nitrogen 18 mg/dl (7-17); Calcium 8.5 mg/dl (8.4-10.2); Carbon Dioxide 25 mmol/L (22-30); Chloride 97 mmol/L (98-107); Estimated Creatinine Clearance 80 ml/min; Glucose 168 mg/dl (70-99); Potassium 4.5 mmol/L (3.5-5.1); Sodium 124 mmol/L (135-145); eGFR > 60.00
[2024-09-08 16:15] LABS: Glucose - Point of Care 169 mg/dl (70-99)
[2024-09-08] MEDS: NEURONTIN 100 MG PO ×2 (16:58→22:06)
[2024-09-08] MEDS: ROXICODONE 2.5 MG PO (16:58)
[2024-09-08] MEDS: SINGULAIR 10 MG PO (17:00)
--- NOTE | 2024-09-08 17:21 | PTCARENOTE ---
Pt OOB to chair and assessment unchanged; NSR on monitor and VSS; Insulin infusing see flow sheet for details; family at bedside.
[2024-09-08] MEDS: NSS 500 IV (17:28)
[2024-09-08 18:03] LABS: Glucose - Point of Care 141 mg/dl (70-99)
[2024-09-08 19:05] LABS: Glucose - Point of Care 185 mg/dl (70-99)
[2024-09-08] MEDS: MAGNESIUM OXIDE 500 MG PO (20:04)
[2024-09-08] MEDS: REMOVE LIDOCAINE PATCH 1 PATCH REMOVE (20:05)
[2024-09-08] MEDS: SENOKOT-S 1 TABLET PO (20:05)
[2024-09-08 20:13] LABS: Glucose - Point of Care 158 mg/dl (70-99)
[2024-09-08 21:14] LABS: Glucose - Point of Care 164 mg/dl (70-99)
[2024-09-08] MEDS: LIPITOR 80 MG PO (22:05)
[2024-09-08 22:11] LABS: Glucose - Point of Care 148 mg/dl (70-99)
[2024-09-08 23:13] LABS: Glucose - Point of Care 130 mg/dl (70-99)
[2024-09-09] VITALS (24 sets, daily range): BP systolic 93–140; BP diastolic 33–79; PULSE 78; O2SAT 94–95; BMI 39.0
[2024-09-09 00:15] LABS: Glucose - Point of Care 105 mg/dl (70-99)
[2024-09-09 02:13] LABS: Glucose - Point of Care 102 mg/dl (70-99)
[2024-09-09] MEDS: PEN VK 250 MG PO ×5 (02:16→23:26)
[2024-09-09 04:12] LABS: Glucose - Point of Care 111 mg/dl (70-99)
[2024-09-09 04:33] LABS: Hematocrit 27.0 % (37.0-47.0); Hemoglobin 9.2 g/dL (12.0-16.0); Mean Corp Hgb Conc. 34.1 g/dL (33.0-37.0); Mean Corpuscular Volume 86.3 fL (81.0-99.0); Platelet Count 164 10^3/uL (130-400); Red Cell Dist. Width 13.9 % (11.5-14.5)
[2024-09-09 04:42] LABS: Blood Urea Nitrogen 19 mg/dl (7-17); Calcium 8.6 mg/dl (8.4-10.2); Carbon Dioxide 26 mmol/L (22-30); Chloride 99 mmol/L (98-107); Estimated Creatinine Clearance 93 ml/min; Glucose 98 mg/dl (70-99); Magnesium 2.1 mg/dl (1.6-2.3); Potassium 4.4 mmol/L (3.5-5.1); Sodium 126 mmol/L (135-145); eGFR > 60.00
[2024-09-09 05:48] LABS: Glucose - Point of Care 100 mg/dl (70-99)
--- NOTE | 2024-09-09 06:00 | W.PN.CT ---
Today's Communication / Plan
-
Plan:
-No major events overnight
-Pt is on insulin gtt, Diabetes management to see today and transition off
-Transfused 1u PRBC yesterday 09/08 for h/h 7.4/21.4, h/h 9.2/27 this AM
-Cont. diuresis
-Maintain courtney for I/O's: 24 hr u/o 2205 mL
-Monitor chest tube output: R/L pleural 160/655
-Monitor hyponatremia, improving 126, was 124 yesterday, 137 preop
-Cont. current meds (Lipitor, ASA, amio, Plavix, Mag ox, metoprolol 12.5 mg)
-Encourage use of IS
-OOB into chair/Ambulate
Assessment / Plan
-
NSTEMI/MVCAD s/p CABG x3 (MAXI to LAD, GSV to OM2, GSV to RPDA), THOMAS clip 45 mm, SAVR (#23 Inspiris Resilia) with Dr. Malloy 09/07/2024 POD #3
Post op COLEMAN: Normal BiV function, AVR without PVL/AI, MG 4, trace MR, trace to mild TR, THOMAS excluded, good flow in all grafts
Syncope
DM1
hyponatremia
HTN
HLD
hypothyroidism
Parotid tumor s/p resection
endometrial cancer s/p hysterectomy
IBS
morbid obesity
Acute post op pain
Acute post op respiratory insufficiency
Acute post op anemia (expected)
Discussed patient care with: Cardiology, Nursing, Respiratory Therapy, Pharmacy and Care Team
Subjective
Procedure
s/p CABG x3 (MAXI to LAD, GSV to OM2, GSV to RPDA), THOMAS clip 45 mm, SAVR (#23 Inspiris Resilia) with Dr. Malloy 09/07/2024
-
Date of Service: September 09, 2024
Pt c/o mild incisional pain, otherwise feels well
Objective Data
-
Lab Results
09/09/24 04:04
09/09/24 04:04
PT 22.4 Sec (11.4-14.6) H 09/06/24 15:35
INR 1.96 09/06/24 15:35
APTT 39.0 Sec (23.4-35.0) H 09/06/24 15:35
Vital Signs
Vital Signs
Temp Pulse Resp BP Pulse Ox
98.8 F 80 18 122/51 93
09/08/24 22:00 09/09/24 05:00 09/09/24 02:59 09/09/24 05:00 09/09/24 02:59
CT Intake/Output/Weight
09/08/24 09/08/24 09/09/24
06:59 18:59 06:59
Intake Total 184.8 / 1541.3 696.2 / 917.5 221.3 / 917.5
Output Total 840 / 2115 1815 / 2585 770 / 2585
Balance -655.2 / -573.7 -1118.8 / -1667.5 -548.7 / -1667.5
SaO2: 93 (RA)
Physical Exam
-
General: Awake, Oriented and AOx3
Cardiovascular: Regular rate & rhythm, No Murmurs, No Rub and No Gallop
Respiratory: Decreased Breath Sounds (at bases, otherwise clear)
Sternum: Stable
Incision: Clean, Dry, Intact and Dressing Intact
Extremities: Edema +1
Data Reviewed
-
Lab Results: Results Reviewed
Medications: Active Meds Reviewed
Chest X-Ray: Report Reviewed and Image Reviewed
ECG: Report Reviewed and Image Reviewed
[2024-09-09 06:25] LABS: B.E. - POC -2.0 mmol/L; Glucose - POC 156 mg/dl (70-99); HCO3 - POC 23 mmol/L (21-28); Hematocrit - POC 26 % PCV (37-47); Hemodilution- POC Yes; Hemoglobin Calculated - POC 8.7; Ionized Calcium - POC 1.35 mmol/L (1.15-1.33); Lactate - POC 1.59 mmol/L (0.36-0.75); O2 Saturation %Calculated-POC 100.0 % (94-98); PCO2 - POC 36 mmHg (35-48); PO2 - POC 390 mmHg (83-108); POC Comment POST; Potassium - POC 4.0 mmol/L (3.5-5.1); Sodium - POC 138 mmol/L (136-145); Specimen Type - POC Arterial; pH - POC 7.40 (7.35-7.45)
[2024-09-09] MEDS: TYLENOL 1000 MG PO ×3 (06:26→21:26)
[2024-09-09] MEDS: SYNTHROID 50 MCG PO (06:27)
[2024-09-09] MEDS: NOVOLIN R INSULIN INFUSION 100 IV (07:14)
[2024-09-09 08:06] LABS: Glucose - Point of Care 150 mg/dl (70-99)
--- NOTE | 2024-09-09 08:35 | PTCARENOTE ---
Patient received from material handler 1st shift RN; AAOx3, responds spontaneously to RN and follows commands; Flat, forgetful affect; NSR on monitor; VSS; Epicardial V-wire insulated and temporary pacemaker turned off; +1 generalized anasarca and +2 B/L LE edema;
+1 B/L DP and +2 radial pulses; Shallow respirations; COSTELLO; Moist, productive cough with bloody sputum; IS 500 ml; Chest tubes x2 connected to -20 cm wall suction draining serosanguineous drainage - no air leak, tidaling, or crepitus noted; Lungs
diminished at bases; Patient complaining of nausea and poor appetite - refusing PRN IV Zofran at this time; Clear, yellow urine draining from courtney catheter; Surgical sites intact; PIVx2 - Insulin drip infusing; RIJ Cordis with KVO infusing; Insulin
pump and continuous glucose monitor applied by DIESEL TECHNICIAN MECHANIC Lydia Mensah; See nursing flowsheets for further details; See nursing documentation for further information
--- NOTE | 2024-09-09 08:35 | PN.DE.MGMTRT ---
Insulin Management
- -
09/09/2024 Diabetes Management Consult Follow up
Patient transferred from [facility] 09/03 with CP. PMH multivessel CAD, hypothyroid, sleep apnea with cpap, asthma, endometrial & uterine CA, HTN, HCL diabetes, aortic stenosis, vasovagal syncope. Prior to admission using the
tandem tslim pump with G6 CGM and novolog insulin. She was prescribed Brenzavvy but stopped 3 days ago. Also was prescribed invokanna and Victoza in the past but stopped due to cost. A1c is pending.
Patient is awake alert and oriented oob in chair. Unsure of what order to restart pump. Assisted with pump set up and CGM set up.
Insulin pump infusing at 8:35 AM IV insulin to be stopped 2 hours later..
Pump settings:
basal 1.7 units/hour, 24 hour basal total 41.04
Carb ratio 5.5
Sensitivity 21
Target 110
Active insulin 5 hours.
Discussed with nurse.
Will follow.
States she has had diabetes 50+ years, sees endocrine, [facility] ST[facility] PHOTOGRAPHER at [facility] for ongoing care. Glucose 113 on admission.
Diabetes History
- -
Type of Diabetes: 1
Pre-Admission Diabetes Regimen
09/08/24 09/09/24
15:34 04:04
Creatinine 0.7 0.6
Lab Results
Hemoglobin A1c 6.9 % (4.0-5.6) H 09/03/24 12:42
Insulin Pump Settings
IP Diabetes Regimen
09/08/24 09/08/24 09/08/24
08:50 10:35 12:02
Glucose
POC Glucose 156 H 177 H 157 H
09/08/24 09/08/24 09/08/24
14:13 15:34 16:11
Glucose 168 H
POC Glucose 170 H 169 H
09/08/24 09/08/24 09/08/24
18:01 19:02 20:12
Glucose
POC Glucose 141 H 185 H 158 H
09/08/24 09/08/24 09/08/24
21:12 22:09 23:12
Glucose
POC Glucose 164 H 148 H 130 H
09/09/24 09/09/24 09/09/24
00:13 02:07 04:04
Glucose 98
POC Glucose 105 H 102 H
09/09/24 09/09/24 09/09/24
04:08 05:45 08:05
Glucose
POC Glucose 111 H 100 H 150 H
Amount consumed: 85%
Patient Education
[2024-09-09] MEDS: LASIX 40 MG IV ×3 (08:43→23:26)
[2024-09-09] MEDS: BACTROBAN 2% OINTMENT 1 APPLIC NASAL ×2 (08:43→19:59)
[2024-09-09] MEDS: TORADOL 15 MG IV (08:43)
[2024-09-09] MEDS: NEURONTIN 100 MG PO ×2 (08:51→21:24)
[2024-09-09] MEDS: VITAMIN C 500 MG PO (08:51)
[2024-09-09] MEDS: LOPRESSOR 12.5 MG PO ×2 (08:51→20:00)
[2024-09-09] MEDS: MAGNESIUM OXIDE 500 MG PO ×2 (08:51→19:58)
[2024-09-09] MEDS: PACERONE 200 MG PO ×3 (08:51→21:24)
[2024-09-09] MEDS: SENOKOT-S 1 TABLET PO ×2 (08:51→19:58)
[2024-09-09] MEDS: FEOSOL 325 MG PO (08:51)
[2024-09-09] MEDS: PROTONIX 40 MG PO (08:51)
[2024-09-09] MEDS: ASPIR LOW (ENTERIC COATED) 81 MG PO (08:51)
[2024-09-09] MEDS: PLAVIX 75 MG PO (08:51)
[2024-09-09] MEDS: LIDOCAINE 4% PATCH TOPICAL (08:52)
[2024-09-09] MEDS: PT'S OWN INSULIN PUMP - NovoLOG 11.17 UNIT SC (09:00)
[2024-09-09] MEDS: NOVOLOG FLEXPEN SC (09:03)
[2024-09-09] MEDS: MUCINEX 1200 MG PO ×2 (09:59→19:58)
[2024-09-09 10:10] LABS: Glucose - Point of Care 233 mg/dl (70-99)
--- NOTE | 2024-09-09 10:40 | W.PN.CARDCBS ---
Today's Communication / Plan
-
stable cardiology status
Impression / Plan
-
Primary Concrete Buster Operator: Dr. Tate of [facility]
Assessment:
Presented with CP to [facility], was scheduled for CABG 09/16/24 as OP, transferred to for urgent AVR/CABG
Status post CABG x 3 related to LAD, GSV to OM 2, GSV to RPDA, THOMAS clip, #23 bioprosthetic AVR 09/06/24
Anemia status post 1 unit PRBC
Multivessel CAD
Aortic stenosis
Type 1 diabetes
Peripheral neuropathy
Hypertension
Hyperlipidemia
History of syncopal episode 05/2024
Asthma
IBS
Long COVID
Laryngopharyngeal reflux
Parotid tumor status postresection
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
Hypothyroidism
OA
Echo 07/31/2024: EF 55 to 60%, mild concentric LVH, mild left atrial enlargement, mild MAC, moderate aortic stenosis with peak/mean gradients 37/22 mmHg, ALEXANDRA 1.1 cm�, mild mitral, tricuspid, aortic, pulmonic insufficiency, grade 1 diastolic
dysfunction, PASP 20 millimeters mercury
Plan:
stable cardiology status
remains in SR
d/w CT surgery PA
Progress Note - Concrete Buster Operator
Subjective
Date of Service: September 09, 2024
no cp or sob
Objective
Labs:
09/09/24 04:04
09/09/24 04:04
Labs
Hgb 9.2 g/dL (12.0-16.0) L D 09/09/24 04:04
Hct 27.0 % (37.0-47.0) L 09/09/24 04:04
Plt Count 164 10^3/uL (130-400) 09/09/24 04:04
PT 22.4 Sec (11.4-14.6) H 09/06/24 15:35
INR 1.96 09/06/24 15:35
APTT 39.0 Sec (23.4-35.0) H 09/06/24 15:35
Sodium 126 mmol/L (135-145) L 09/09/24 04:04
Potassium 4.4 mmol/L (3.5-5.1) 09/09/24 04:04
BUN 19 mg/dl (7-17) H 09/09/24 04:04
Creatinine 0.6 mg/dL (0.6-1.0) 09/09/24 04:04
Glucose 98 mg/dl (70-99) 09/09/24 04:04
Vital Signs and I&O:
Vital Signs
Temp Pulse Resp BP Pulse Ox
97.7 F 78 18 106/48 93
09/09/24 06:00 09/09/24 10:00 09/09/24 10:00 09/09/24 10:00 09/09/24 10:00
Vital Signs
Temp Pulse Resp BP Pulse Ox
97.7 F 78 18 106/48 93
09/09/24 06:00 09/09/24 10:00 09/09/24 10:00 09/09/24 10:00 09/09/24 10:00
Intake & Output
09/07/24 09/08/24 09/09/24 09/10/24
06:59 06:59 06:59 06:59
Intake Total 2233.9 / 2264.9 1529.9 / 1541.3 975.8 / 989.1 666.6 / 666.6
Output Total 1745 / 1770 2009 / 2114 2860 / 2965 260 / 260
Balance 488.9 / 494.9 -480.1 / -573.7 -1884.2 / -1975.9 406.6 / 406.6
Physical Exam
Physical Exam
General: Well developed, well nourished in NAD.
Neck: Supple, no JVD, HJR, carotids +2 B/L, no bruits bilaterally.
Heart: Non displaced PMI, RRR, no murmurs, No S3, S4, no rubs.
Lungs: scattered rhonchi
sternal dressings noted
Extremities: No clubbing, cyanosis or edema bilaterally.
Neuro: Grossly nonfocal, awake, alert and oriented x3.
[2024-09-09 11:02] LABS: Glucose - Point of Care 256 mg/dl (70-99)
[2024-09-09 12:04] LABS: Glucose - Point of Care 288 mg/dl (70-99)
--- NOTE | 2024-09-09 12:14 | CM ---
Reviewed chart. Met with phoenix Rooney to review discharge plans. Family would like to explore some level of rehab. prior to returning home. We reviewed [facility] [place] and SNF/Rehab. pending the recommendation of the therapist.
Telephone call to [facility] Admission to make the referral. Telephone call to [facility] Liaion to make the referral. Will send referral after therapy evaluations. Medical work up in progress. The discharge plan is to go to some level of
inpatient rehab. Acute verses SNF. when medically stable.
--- NOTE | 2024-09-09 12:38 | PN.CDI ---
CDI
- -
CDI:
Physician Documentation Request
Admit Date: 09/03/24 09:[address] team,
Please review the following and provide your response in the progress notes.
Clinical Indicators:
Pt admitted for NSTEMI. Status post CABG x 3 related to LAD, GSV to OM 2, GSV to RPDA, THOMAS clip, #23 bioprosthetic AVR 09/06/24
Laboratory Tests
09/06/24 09/07/24 09/08/24
19:09 03:07 04:01
Hgb 8.4 L 7.5 L 7.4 L
Received total 2 units PRBC's.
09/09 CT Progress Note: 'Acute post op anemia (expected).'
Based on the above, could you clarify, in your progress note, which of the following is the most likely type of anemia you are evaluating, monitoring and/or treating?
Acute blood loss anemia
Other
Use of terms such as suspected, likely, concern for, or probable (associated with a specific diagnosis that is being evaluated, monitored, or treated as if it exists) are acceptable and can be coded in the inpatient setting, when documented at the
time of discharge.
Thank you,
Giovanna German RN, BSN
CDI Specialist
[place] [facility]
Please use your independent medical judgment in providing your response.
[2024-09-09] MEDS: PT'S OWN INSULIN PUMP - NovoLOG 16.56 UNIT SC (13:00)
[2024-09-09 13:05] LABS: Glucose - Point of Care 178 mg/dl (70-99)
[2024-09-09] MEDS: ZOFRAN 4 MG IV (13:53)
[2024-09-09 14:01] LABS: Glucose - Point of Care 224 mg/dl (70-99)
[2024-09-09] MEDS: NSS IV (14:05)
--- NOTE | 2024-09-09 14:32 | PTCARENOTE ---
Cordis removed by RN at bedside - VSS and no complications noted; Courtney catheter with low urine output; Bladder scanned and courtney catheter irrigated as per CVFRITZ Nguyễn - no obstructions, blood clots, or sediment found; Patient with trouble
ambulating with RN and cardiac rehab - PT/OT consulted for patient; Insulin drip remains infusing due to high blood sugars at this time - will transition to patient's own insulin pump; PRN IV Zofran given accordingly for nausea after lunch; IV
Dilaudid discontinued due to patient drowsiness; Patient resting comfortably in chair at this time
[2024-09-09] MEDS: NEURONTIN PO (15:02)
[2024-09-09 15:04] LABS: Glucose - Point of Care 163 mg/dl (70-99)
--- NOTE | 2024-09-09 17:32 | PTCARENOTE ---
Insulin infusion stopped as per orders; Patient OOB in chair and states nausea has improved; Ambulation and exercises encouraged by RN as tolerated by patient
[2024-09-09] MEDS: SINGULAIR 10 MG PO (17:38)
[2024-09-09 17:39] LABS: Glucose - Point of Care 125 mg/dl (70-99)
[2024-09-09] MEDS: PT'S OWN INSULIN PUMP - NovoLOG 3.58 UNIT SC (17:39)
[2024-09-09] MEDS: REMOVE LIDOCAINE PATCH 1 PATCH REMOVE (20:00)
--- NOTE | 2024-09-09 20:43 | PTCARENOTE ---
assumed care of patient at 1900. Patient alert and oriented, Moves all extremities, OOB to chair, Headache frontal region, denies other pain at this time. Normal sinus rhythm, + Pulses, +1 edema in hands and feert. Bp stable, Lung clear bilaterally
diminished at bases. Chest tubes serosanguineous to sanguinous drainage. IS effort fair 500-800, can get to 1000 when pushed to try. On room air, 94%. Tolerating PO intake appetite poor, Patient own Insluin pump on, AC/HS checks. Passing gas,
+BS, No BM yet. see workflow for more detail assesment data.
[2024-09-09 21:21] LABS: Glucose - Point of Care 64 mg/dl (70-99)
[2024-09-09 21:23] LABS: Glucose - Point of Care 134 mg/dl (70-99)
[2024-09-09] MEDS: LIPITOR 80 MG PO (21:24)
[2024-09-09] MEDS: PT'S OWN INSULIN PUMP - NovoLOG 2.34 UNIT SC (22:00)
--- NOTE | 2024-09-09 22:21 | PTCARENOTE ---
patient back in bed, CPAP on, good effort with transfer to bed from chair. patient seems more alert and motivated than earlier.
--- NOTE | 2024-09-09 23:33 | PTCARENOTE ---
patient resting comfortably, denies pain. VSS. IV laxis given.
[2024-09-10] VITALS (19 sets, daily range): BP systolic 106–164; BP diastolic 47–70; PULSE 82; O2SAT 99; BMI 38.7
--- NOTE | 2024-09-10 04:41 | W.PN.CT ---
Addendum entered and electronically signed by Juan Diego Malloy MD 09/10/24 06:38:
I saw and examined the patient.
The PA's note was reviewed and I agree with the note.
Comment:
Doing well. Hgb stable post transfusions. Hyponatremia improving
- D/C courtney today
- Check 2v CXR today
- D/C CTs today if no sig output post OOB and CXR clear
- Continue diuresis
- OOB/IS/ambulate/PT/OT
Original Note:
Today's Communication / Plan
-
Plan:
-No major events overnight
-Transitioned off insulin gtt yesterday to her insulin pump by Diabetes management
-Transfused 1u PRBC on 09/08 for h/h 7.4/21.4, h/h 9.1/26.5 this AM
-Cont. diuresis
-D/C courtney: 24 hr u/o 1900 mL
-Consider d/c of chest tubes if no significant dump when OOB into chair: R/L pleural 80/285
-Monitor hyponatremia, improving 129, was 126 yesterday, 137 preop
-Cont. current meds (Lipitor, ASA, amio, Plavix, Mag ox, metoprolol 12.5 mg)
-Encourage use of IS
-OOB into chair/Ambulate
-PT/OT consult placed
Assessment / Plan
-
NSTEMI/MVCAD s/p CABG x3 (MAXI to LAD, GSV to OM2, GSV to RPDA), THOMAS clip 45 mm, SAVR (#23 Inspiris Resilia) with Dr. Malloy 09/07/2024 POD #4
Post op COLEMAN: Normal BiV function, AVR without PVL/AI, MG 4, trace MR, trace to mild TR, THOMAS excluded, good flow in all grafts
Syncope
DM1
hyponatremia
HTN
HLD
hypothyroidism
Parotid tumor s/p resection
endometrial cancer s/p hysterectomy
IBS
morbid obesity
Acute post op pain
Acute post op respiratory insufficiency
Acute post op anemia (expected)
Discussed patient care with: Cardiology, Nursing, Respiratory Therapy, Pharmacy and Care Team
Subjective
Procedure
s/p CABG x3 (MAXI to LAD, GSV to OM2, GSV to RPDA), THOMAS clip 45 mm, SAVR (#23 Inspiris Resilia) with Dr. Malloy 09/07/2024
-
Date of Service: September 10, 2024
Pt c/o mild incisional pain and feeling deconditioned, otherwise well
Objective Data
-
PT 22.4 Sec (11.4-14.6) H 09/06/24 15:35
INR 1.96 09/06/24 15:35
APTT 39.0 Sec (23.4-35.0) H 09/06/24 15:35
Vital Signs
Vital Signs
Temp Pulse Resp BP Pulse Ox
95.5 F L 66 18 106/39 93
09/09/24 22:00 09/09/24 23:00 09/09/24 16:00 09/09/24 23:00 09/09/24 22:00
CT Intake/Output/Weight
09/09/24 09/09/24 09/10/24
06:59 18:59 06:59
Intake Total 279.6 / 989.1 1302.6 / 1412.6 110 / 1412.6
Output Total 1045 / 2965 800 / 2080 1280 / 2080
Balance -765.4 / -1975.9 502.6 / -667.4 -1170 / -667.4
SaO2: 93 (RA)
Physical Exam
-
General: Awake, Oriented and AOx3
Cardiovascular: Regular rate & rhythm, No Murmurs, No Rub and No Gallop
Respiratory: Decreased Breath Sounds (at bases, otherwise clear )
Sternum: Stable
Incision: Clean, Dry, Intact and Dressing Intact
Extremities: Edema +1
Data Reviewed
-
Lab Results: Results Reviewed
Medications: Active Meds Reviewed
Chest X-Ray: Report Reviewed and Image Reviewed
ECG: Report Reviewed and Image Reviewed
[2024-09-10 04:44] LABS: Hematocrit 26.5 % (37.0-47.0); Hemoglobin 9.1 g/dL (12.0-16.0); Mean Corp Hgb Conc. 34.3 g/dL (33.0-37.0); Mean Corpuscular Volume 84.9 fL (81.0-99.0); Platelet Count 186 10^3/uL (130-400); Red Cell Dist. Width 14.0 % (11.5-14.5)
--- NOTE | 2024-09-10 04:45 | PTCARENOTE ---
patient on CPAP overnight, no issues, denies pain, labs drawn, NSR, VSS, Wilson clear yellow, CTs minimal output.
[2024-09-10 05:07] LABS: Blood Urea Nitrogen 27 mg/dl (7-17); Calcium 8.6 mg/dl (8.4-10.2); Carbon Dioxide 28 mmol/L (22-30); Chloride 98 mmol/L (98-107); Estimated Creatinine Clearance 71 ml/min; Glucose 71 mg/dl (70-99); Magnesium 2.2 mg/dl (1.6-2.3); Potassium 3.9 mmol/L (3.5-5.1); Sodium 129 mmol/L (135-145); eGFR > 60.00
[2024-09-10] MEDS: SYNTHROID 50 MCG PO (06:00)
[2024-09-10] MEDS: PEN VK 250 MG PO ×3 (06:00→17:59)
[2024-09-10] MEDS: TYLENOL 1000 MG PO ×2 (06:00→22:42)
[2024-09-10 08:28] LABS: Glucose - Point of Care 68 mg/dl (70-99)
[2024-09-10] MEDS: VITAMIN C 500 MG PO (09:02)
[2024-09-10] MEDS: PROTONIX 40 MG PO (09:02)
[2024-09-10] MEDS: PLAVIX 75 MG PO (09:02)
[2024-09-10] MEDS: KCL 20 MEQ PO ×2 (09:02→15:17)
[2024-09-10] MEDS: PACERONE 200 MG PO ×3 (09:02→22:42)
[2024-09-10] MEDS: LIDOCAINE 4% PATCH TOPICAL (09:03)
[2024-09-10] MEDS: MAGNESIUM OXIDE 500 MG PO ×2 (09:03→20:23)
[2024-09-10] MEDS: LOPRESSOR 12.5 MG PO ×2 (09:03→20:23)
[2024-09-10] MEDS: ASPIR LOW (ENTERIC COATED) 81 MG PO (09:03)
[2024-09-10] MEDS: FEOSOL 325 MG PO (09:03)
[2024-09-10] MEDS: MUCINEX 1200 MG PO ×2 (09:03→20:23)
[2024-09-10] MEDS: NEURONTIN 100 MG PO ×3 (09:03→22:42)
[2024-09-10] MEDS: LASIX 40 MG IV ×2 (09:03→15:17)
[2024-09-10] MEDS: SENOKOT-S 1 TABLET PO ×2 (09:03→20:23)
[2024-09-10] MEDS: PT'S OWN INSULIN PUMP - NovoLOG 8.4 UNIT SC (09:04)
[2024-09-10] MEDS: BACTROBAN 2% OINTMENT 1 APPLIC NASAL (09:05)
--- NOTE | 2024-09-10 09:20 | PTCARENOTE ---
assumed care of pt from previous shift RN, sinus rhythm on tele, VSS, + peripheral pulses, +1 edema to bilateral lower extremities. Lungs diminished, pox 97% on RA, coughing and deep breathing encouraged. +bs, tolerating PO intake, courtney draining
yellow. Surgical sites stable. PIV flush easily. Plan of care reviewed and questions encouraged.
--- NOTE | 2024-09-10 09:21 | PN.DE.MGMTRT ---
Insulin Management
- -
09/10/2024 Diabetes Management Consult Follow up
Patient transferred from [facility] 09/03 with CP. PMH multivessel CAD, hypothyroid, sleep apnea with cpap, asthma, endometrial & uterine CA, HTN, HCL diabetes, aortic stenosis, vasovagal syncope. Prior to admission using the
tandem tslim pump with G6 CGM and novolog insulin. She was prescribed Brenzavvy but stopped 3 days ago. Also was prescribed invokanna and Victoza in the past but stopped due to cost. A1c 6.9%.
POD 4 s/p CABG x 3. Patient is awake alert and oriented oob in chair. Pump and CGM restarted yesterday @ 8:35, insulin infusion off 10:35am glucose improved 125 pre dinner and 134 @ HS. Fasting this AM 71.
Patient is using pump for meals and corrections. Will make no change to pump settings.
Pump settings:
basal 1.7 units/hour, 24 hour basal total 41.04
Carb ratio 5.5
Sensitivity 21
Target 110
Active insulin 5 hours.
Discussed with nurse.
Will follow.
States she has had diabetes 50+ years, sees endocrine, BEADER at [facility] for ongoing care. Glucose 113 on admission.
Diabetes History
- -
Type of Diabetes: 1
Pre-Admission Diabetes Regimen
09/10/24
04:19
Creatinine 0.8
Lab Results
Hemoglobin A1c 6.9 % (4.0-5.6) H 09/03/24 12:42
Insulin Pump Settings
IP Diabetes Regimen
09/09/24 09/09/24 09/09/24
10:08 11:02 12:03
Glucose
POC Glucose 233 H 256 H 288 H
09/09/24 09/09/24 09/09/24
13:03 14:00 14:48
Glucose
POC Glucose 178 H 224 H 163 H
09/09/24 09/09/24 09/09/24
17:37 21:19 21:22
Glucose
POC Glucose 125 H 64 L 134 H
09/10/24 09/10/24
04:19 08:21
Glucose 71
POC Glucose 68 L
Meal type: Dinner
Meal type: Lunch
Meal type: Breakfast
Amount consumed: 50%
Amount consumed: 50%
Amount consumed: 25%
Patient Education
--- NOTE | 2024-09-10 11:55 | PTCARENOTE ---
CTs removed as ordered.
[2024-09-10 12:40] LABS: Glucose - Point of Care 222 mg/dl (70-99)
[2024-09-10 14:13] LABS: Glucose - Point of Care 172 mg/dl (70-99)
[2024-09-10] MEDS: TYLENOL PO (14:23)
[2024-09-10] MEDS: PT'S OWN INSULIN PUMP - NovoLOG 3.07 UNIT SC (14:23)
[2024-09-10] MEDS: NSS IV (14:24)
--- NOTE | 2024-09-10 14:49 | W.PN.CARDCBS ---
Today's Communication / Plan
-
Stable cardiology status
Impression / Plan
-
Primary Ice Skater: Dr. Tate of [facility]
Assessment:
Presented with CP to [facility], was scheduled for CABG 09/16/24 as OP, transferred to for urgent AVR/CABG
Status post CABG x 3 related to LAD, GSV to OM 2, GSV to RPDA, THOMAS clip, #23 bioprosthetic AVR 09/06/24
Anemia status post 1 unit PRBC
Multivessel CAD
Aortic stenosis
Type 1 diabetes
Peripheral neuropathy
Hypertension
Hyperlipidemia
History of syncopal episode 05/2024
Asthma
IBS
Long COVID
Laryngopharyngeal reflux
Parotid tumor status postresection
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
Hypothyroidism
OA
Echo 07/31/2024: EF 55 to 60%, mild concentric LVH, mild left atrial enlargement, mild MAC, moderate aortic stenosis with peak/mean gradients 37/22 mmHg, ALEXANDRA 1.1 cm�, mild mitral, tricuspid, aortic, pulmonic insufficiency, grade 1 diastolic
dysfunction, PASP 20 millimeters mercury
Plan:
stable cardiology status
remains in SR
d/w CT surgery PA
Progress Note - Ice Skater
Subjective
Date of Service: September 10, 2024
No complaints
Objective
Labs:
09/10/24 04:19
09/10/24 04:19
Labs
Hgb 9.1 g/dL (12.0-16.0) L 09/10/24 04:19
Hct 26.5 % (37.0-47.0) L 09/10/24 04:19
Plt Count 186 10^3/uL (130-400) 09/10/24 04:19
PT 22.4 Sec (11.4-14.6) H 09/06/24 15:35
INR 1.96 09/06/24 15:35
APTT 39.0 Sec (23.4-35.0) H 09/06/24 15:35
Sodium 129 mmol/L (135-145) L 09/10/24 04:19
Potassium 3.9 mmol/L (3.5-5.1) 09/10/24 04:19
BUN 27 mg/dl (7-17) H 09/10/24 04:19
Creatinine 0.8 mg/dL (0.6-1.0) 09/10/24 04:19
Glucose 71 mg/dl (70-99) 09/10/24 04:19
Vital Signs and I&O:
Vital Signs
Temp Pulse Resp BP Pulse Ox
96.8 F L 80 18 119/51 97
09/10/24 11:12 09/10/24 11:12 09/10/24 11:12 09/10/24 11:12 09/10/24 11:12
Vital Signs
Temp Pulse Resp BP Pulse Ox
96.8 F L 80 18 119/51 97
09/10/24 11:12 09/10/24 11:12 09/10/24 11:12 09/10/24 11:12 09/10/24 11:12
Intake & Output
09/08/24 09/09/24 09/10/24 09/11/24
06:59 06:59 06:59 06:59
Intake Total 1529.9 / 1541.3 975.8 / 989.1 1472.6 / 1472.6 100 / 100
Output Total 2009 2860 / 2965 2365 / 2365 300 / 300
Balance -480.1 / -573.7 -1884.2 / -1975.9 -892.4 / -892.4 -200 / -200
Physical Exam
Physical Exam
General: Well developed, well nourished in NAD.
Neck: Supple, no JVD, HJR, carotids +2 B/L, no bruits bilaterally.
Heart: Non displaced PMI, RRR, no murmurs, No S3, S4, no rubs.
Lungs: Scattered rhonchi
Sternal dressings noted
Neuro: Grossly nonfocal, awake, alert and oriented x3.
--- NOTE | 2024-09-10 15:13 | CM ---
Reviewed chart. Met with Mrs. Knutson to review discharge plans. Reviewed therapy recommendation of acute Rehab. She is agreeable to going to inpatient rehab. [facility]. Sent the referral.
Telephone call to [facility] Admission to make the referral for SNF/Rehab. Sent the referral. Await decision regarding ability to accept. Medical work-up in progress. The discharge plan is to go to some level of inpatient rehab. when medically
stable.
--- NOTE | 2024-09-10 15:40 | PTCARENOTE ---
assisted pt w ambulating in hallway. pt converted to afib while ambulating. CT BECCA aware. Amiodarone bolus ordered.
[2024-09-10] MEDS: CORDARONE 103 MG IV (15:49)
[2024-09-10] MEDS: SINGULAIR 10 MG PO (17:59)
--- NOTE | 2024-09-10 18:01 | PTCARENOTE ---
New IV line placed, amiodarone bolus administered as ordered. IV removed post bolus.
[2024-09-10 18:54] LABS: Glucose - Point of Care 173 mg/dl (70-99)
[2024-09-10] MEDS: PT'S OWN INSULIN PUMP - NovoLOG 6.29 UNIT SC (20:23)
[2024-09-10] MEDS: REMOVE LIDOCAINE PATCH 1 PATCH REMOVE (20:35)
--- NOTE | 2024-09-10 21:21 | PTCARENOTE ---
Assumed care of patient @1900. patient alert and oriented, OOB to chair , having dinner, on own Insulin pump, did meal and correction doses with pump. Patient then walked in koch and to bathroom. On Room air, lungs clear and diminished at bases.
+pulses, +BS, +gas.
[2024-09-10] MEDS: PT'S OWN INSULIN PUMP - NovoLOG 0.44 UNIT SC (22:30)
[2024-09-10] MEDS: LIPITOR 80 MG PO (22:42)
[2024-09-10] MEDS: MILK OF MAGNESIA 30 ML PO (22:42)
[2024-09-10 23:03] LABS: Glucose - Point of Care 123 mg/dl (70-99)
[2024-09-11] VITALS (15 sets, daily range): BP systolic 105–155; BP diastolic 43–116; PULSE 80–95; BMI 38.5
[2024-09-11] MEDS: KCL 20 MEQ PO ×3 (01:26→20:49)
[2024-09-11] MEDS: LASIX 40 MG IV ×3 (01:26→17:00)
[2024-09-11] MEDS: PEN VK 250 MG PO ×4 (01:26→17:08)
[2024-09-11 04:54] LABS: Hematocrit 25.2 % (37.0-47.0); Hemoglobin 8.8 g/dL (12.0-16.0); Mean Corp Hgb Conc. 34.9 g/dL (33.0-37.0); Mean Corpuscular Volume 85.1 fL (81.0-99.0); Platelet Count 247 10^3/uL (130-400); Red Cell Dist. Width 14.1 % (11.5-14.5)
[2024-09-11 05:14] LABS: Blood Urea Nitrogen 25 mg/dl (7-17); Calcium 8.3 mg/dl (8.4-10.2); Carbon Dioxide 29 mmol/L (22-30); Chloride 99 mmol/L (98-107); Estimated Creatinine Clearance 71 ml/min; Glucose 76 mg/dl (70-99); Magnesium 2.1 mg/dl (1.6-2.3); Potassium 4.2 mmol/L (3.5-5.1); Sodium 131 mmol/L (135-145); eGFR > 60.00
--- NOTE | 2024-09-11 05:26 | W.PN.CT ---
Today's Communication / Plan
-
Plan:
-No major events overnight
-Transitioned off insulin gtt on 09/09 to her insulin pump by Diabetes management
-Transfused 1u PRBC on 09/08 for h/h 7.4/21.4, h/h 8.8/25.2 this AM
-Cont. diuresis
-D/C'd courtney yesterday 09/10, spontaneously voiding, 1600 mL
-D/C'd chest tube yesterday
-Monitor hyponatremia, improving 131, was 129 yesterday, 137 preop
-Cont. current meds (Lipitor, ASA, amio, Plavix, Mag ox, metoprolol 12.5 mg)
-Encourage use of IS
-OOB into chair/Ambulate
-PT recommends acute rehab ([place])
-Physiatry to see
-Likely d/c to [place] tomorrow
Assessment / Plan
-
NSTEMI/MVCAD s/p CABG x3 (MAXI to LAD, GSV to OM2, GSV to RPDA), THOMAS clip 45 mm, SAVR (#23 Inspiris Resilia) with Dr. Malloy 09/07/2024 POD #5
Post op COLEMAN: Normal BiV function, AVR without PVL/AI, MG 4, trace MR, trace to mild TR, THOMAS excluded, good flow in all grafts
Syncope
DM1
hyponatremia
HTN
HLD
hypothyroidism
Parotid tumor s/p resection
endometrial cancer s/p hysterectomy
IBS
morbid obesity
Acute post op pain
Acute post op respiratory insufficiency
Acute post op anemia (expected)
Discussed patient care with: Cardiology, Nursing, Respiratory Therapy, Pharmacy and Care Team
Subjective
Procedure
s/p CABG x3 (MAXI to LAD, GSV to OM2, GSV to RPDA), THOMAS clip 45 mm, SAVR (#23 Inspiris Resilia) with Dr. Malloy 09/07/2024
-
Date of Service: September 11, 2024
Pt c/o mild incisional pain, otherwise feels well. Now appears motivated to ambulate
Objective Data
-
Lab Results
09/11/24 04:31
09/11/24 04:31
PT 22.4 Sec (11.4-14.6) H 09/06/24 15:35
INR 1.96 09/06/24 15:35
APTT 39.0 Sec (23.4-35.0) H 09/06/24 15:35
Vital Signs
Vital Signs
Temp Pulse Resp BP Pulse Ox
98.3 F 76 16 116/49 97
09/10/24 20:15 09/10/24 23:00 09/10/24 20:15 09/10/24 22:43 09/11/24 00:15
CT Intake/Output/Weight
09/10/24 09/10/24 09/11/24
06:59 18:59 06:59
Intake Total 170 / 1472.6 300 / 540 240 / 540
Output Total 1565 / 2365 1600 / 1900 300 / 1900
Balance -1395 / -892.4 -1300 / -1360 -60 / -1360
SaO2: 97 (RA)
Physical Exam
-
General: Awake, Oriented and AOx3
Cardiovascular: Regular rate & rhythm, No Murmurs, No Rub and No Gallop
Respiratory: Decreased Breath Sounds (at bases, otherwise clear)
Sternum: Stable
Incision: Clean, Dry, Intact and Dressing Intact
Extremities: Edema +1
Data Reviewed
-
Lab Results: Results Reviewed
Medications: Active Meds Reviewed
Chest X-Ray: Report Reviewed and Image Reviewed
ECG: Report Reviewed and Image Reviewed
--- NOTE | 2024-09-11 05:58 | PTCARENOTE ---
labs sent rubia remains alert and oriented, Normal Sinus rhythm. room air, Purwick placed after laxis given overnight. CHG bath completed.
[2024-09-11] MEDS: SYNTHROID 50 MCG PO (06:07)
[2024-09-11] MEDS: TYLENOL 1000 MG PO ×2 (06:08→21:22)
[2024-09-11] MEDS: VITAMIN C 500 MG PO (07:57)
[2024-09-11] MEDS: PLAVIX 75 MG PO (07:57)
[2024-09-11] MEDS: ASPIR LOW (ENTERIC COATED) 81 MG PO (07:57)
[2024-09-11] MEDS: PACERONE 200 MG PO ×3 (07:57→21:23)
[2024-09-11] MEDS: FEOSOL 325 MG PO (07:57)
[2024-09-11] MEDS: PROTONIX 40 MG PO (07:57)
[2024-09-11] MEDS: SENOKOT-S 1 TABLET PO (07:57)
[2024-09-11] MEDS: NEURONTIN 100 MG PO ×3 (07:57→21:23)
[2024-09-11] MEDS: MUCINEX 1200 MG PO ×2 (07:58→20:49)
[2024-09-11] MEDS: LIDOCAINE 4% PATCH TOPICAL (07:58)
[2024-09-11] MEDS: LOPRESSOR 12.5 MG PO ×2 (07:58→09:14)
[2024-09-11] MEDS: MAGNESIUM OXIDE 500 MG PO ×2 (07:58→20:48)
--- NOTE | 2024-09-11 08:21 | PTCARENOTE ---
assumed care of pt from previous shift RN, sinus rhythm on tele, VSS, + peripheral pulses, trace edema noted. Lungs clear, pox 97% on RA, coughing and deep breathing encouraged. +bs, tolerating PO intake, + BM this am. Voids spontaneously. Surgical
sites stable. PIV flushes easily. Plan of care reviewed w the pt and questions encouraged.
--- NOTE | 2024-09-11 08:29 | PN.DE.MGMTRT ---
Insulin Management
- -
09/11/2024 Diabetes Management Consult Follow up
Patient transferred from [facility] 09/03 with CP. PMH multivessel CAD, hypothyroid, sleep apnea with cpap, asthma, endometrial & uterine CA, HTN, HCL diabetes, aortic stenosis, vasovagal syncope. Prior to admission using the
tandem tslim pump with G6 CGM and novolog insulin. She was prescribed Brenzavvy but stopped 3 days ago. Also was prescribed invokanna and Victoza in the past but stopped due to cost. A1c 6.9%.
POD 5 s/p CABG x 3. Cr .8, eGFR > 60/ Patient is awake alert and oriented oob in chair. Pump and CGM restarted 09/09. Glucose range yesterday 71 to 173. Fasting this AM 76.
Patient is using pump for meals and corrections. Will make no change to pump settings.
Pump settings:
basal 1.7 units/hour, 24 hour basal total 41.04
Carb ratio 5.5
Sensitivity 21
Target 110
Active insulin 5 hours.
Discussed with nurse.
Will follow.
States she has had diabetes 50+ years, sees endocrine, [employer] at [facility] for ongoing care. Glucose 113 on admission.
Diabetes History
- -
Type of Diabetes: 1
Pre-Admission Diabetes Regimen
09/11/24
04:31
Creatinine 0.8
Lab Results
Hemoglobin A1c 6.9 % (4.0-5.6) H 09/03/24 12:42
Insulin Pump Settings
IP Diabetes Regimen
09/10/24 09/10/24 09/10/24
12:38 14:12 18:50
Glucose
POC Glucose 222 H 172 H 173 H
09/10/24 09/11/24
22:52 04:31
Glucose 76
POC Glucose 123 H
Meal type: Breakfast
Meal type: Dinner
Meal type: Breakfast
Amount consumed: 85%
Amount consumed: 100%
Patient Education
[2024-09-11 09:43] LABS: Glucose - Point of Care 112 mg/dl (70-99)
[2024-09-11] MEDS: PT'S OWN INSULIN PUMP - NovoLOG 9.09 UNIT SC (09:47)
--- NOTE | 2024-09-11 09:51 | CON.MD ---
Documented by User: Abimbola Del Valle MD, Resident 09/11/24 13:21
Consultation - Medical
-
Referring Provider:�Juan Diego Malloy
Chief Complaint:��CAD s/p CABGx3 and aortic valve replacement
�
History of Present Illness:��Patient is a 74-year-old female with PMH notable for CAD (cardiac cath 08/01/24), aortic stenosis, asthma, RATNA on CPAP, hypertension, diabetes, neuropathy, who is postop from CABG x 3 and AVR on 09/06/24 after presenting
with chest pain.
Timeline:
Multivessel CAD on cardiac cath on 08/01/2024.
She was scheduled for CABG and AVR by Dr. Malloy in [place] surgery on 09/16/24
On 09/02/2024, patient started having chest pain. Ambulance took her to [facility]. She was transferred to [facility] on 09/03/24, where she continued to have chest pain.
Her CABG and AVR were moved up to 09/06/2024, since she became symptomatic. She is postop now.
Multivessel CAD status post CABG x 3, AVR 09/06/2024
Unstable angina/NSTEMI
Moderate to severe aortic stenosis
Syncopal episode 05/2024
Perioperative mechanical ventilation
Postop anemia
�
Past Medical History:��
Neuropathy
Asthma
RATNA on CPAP
Hypertension
Hyperlipidemia
Hypothyroidism
OA w/ significant cervical and B/L shoulder involvement
Parotid tumor s/p Rx
IBS
Reflux
Diabetes
Cataract status post surgery
Vitreous detachment with neovascularization
Endometrial and uterine cancer 2003 status post PRISCILA
Vasovagal syncope
Obesity
Procedure History:��CABGx3 and AVR on 09/06/24
Family History:��Not pertinent
�
Social History:�
Functional Level Premorbidly: Independent with all activities�
Functional Level Currently:��
OT: Significant assistance for lower body ADLs, minimal assistance for toileting, minimal/moderate assistance for transfers, minimal assistance for functional mobility in room and bathroom with rolling walker and supervision for standing grooming at
sink. Will benefit from acute rehab
PT: Ambulatory without assistive device. Required minimal/moderate assistance x 1-2 people. Physical impairments include decreased endurance, balance, sensation, muscle strength. Recommend acute rehab
Tobacco: Denies�
Alcohol: Denies�
Drug use: Denies�
�
Lives with:��alone
24-hour assistance available:��no. All family have jobs and/or children to take care of
Number of floors:��1
# steps to enter:��1
Driving:��yes
Occupation:��retired
��
�
Allergies:��
�
Allergy/AdvReac Type Severity Reaction Status Date / Time
Cephalosporins Allergy Severe Swelling Verified 08/01/24 10:07
Iodinated Contrast Media Allergy Severe Shortness Verified 08/01/24 10:07
of Breath
adhesive Allergy Intermediate Rash Verified 08/01/24 10:07
phenobarbital Allergy Unknown Unknown Verified 08/01/24 10:07
codeine Allergy Unknown Verified 08/01/24 10:07
insulin lispro (From Humalog Allergy Rash Verified 08/01/24 10:07
U-100 Insulin)
shellfish derived Allergy Unknown Verified 08/01/24 10:07
diphenhydramine (From AdvReac TACHYCARDIA Verified 08/01/24 10:07
Benadryl)
Review of Systems:�
Constitutional: (x) Normal _�
Eye: (x) Normal _�
Ear/Nose/Throat: Right ear fullness
Respiratory: SOB with walking (with physical therapy)
Cardiovascular: (x) Normal _�
Gastrointestinal: Nausea with walking, Diarrhea x 1 this morning
Genitourinary: (x) Normal _�
Musculoskeletal: (x) Normal _�
Integumentary: Pedal edema b/l
Neurologic: Headache bilateral at frontal sinuses 03/18
Psychiatric: (x) Normal _�
Endocrine: (x) Normal _�
Hematologic/Lymphatic: (x) Normal _�
Allergic/Immunologic: (x) Normal _�
�
Medications:�
�
Generic Name Dose Route Start Last Admin
Trade Name Freq PRN Reason Stop Dose Admin
Acetaminophen 650 mg 09/06/24 14:10
Acetaminophen 325 Mg Tablet PO 10/04/24 14:09
Q4HPRN PRN
mild pain,headache,temp >101F
Acetaminophen 1,000 mg 09/06/24 14:10 09/11/24 06:08
Acetaminophen 500 Mg Tablet PO 10/04/24 14:09 1,000 mg
TID@0600,1400,2200 CLAUDIO Administration
Amiodarone HCl 200 mg 09/06/24 16:00 09/11/24 07:57
Amiodarone 200 Mg Tablet PO 10/04/24 15:59 200 mg
TID CLAUDIO Administration
Ascorbic Acid 500 mg 09/07/24 08:00 09/11/24 07:57
Ascorbic Acid 500 Mg Tablet PO 10/05/24 07:59 500 mg
DAILY CLAUDIO Administration
Aspirin 81 mg 09/04/24 08:00 09/11/24 07:57
Aspirin 81 Mg (Enteric Coated) Tablet PO 10/02/24 07:59 81 mg
DAILY CLAUDIO Administration
Atorvastatin Calcium 80 mg 09/03/24 22:00 09/10/24 22:42
Atorvastatin (Lipitor) 80 Mg Tablet PO 10/01/24 21:59 80 mg
HS CLAUDIO Administration
Bisacodyl 10 mg 09/06/24 14:10
Bisacodyl 10 Mg Rectal Suppository RECTAL 10/04/24 14:09
DAILYPRN PRN
constipation
Clopidogrel Bisulfate 75 mg 09/07/24 08:00 09/11/24 07:57
Clopidogrel 75 Mg Tablet PO 10/05/24 07:59 75 mg
DAILY CLAUDIO Administration
Cyclobenzaprine HCl 5 mg 09/06/24 14:10 09/07/24 23:17
Cyclobenzaprine 10 Mg Tablet PO 10/04/24 14:09 5 mg
Q8HPRN PRN Administration
muscle spasm
Ferrous Sulfate 325 mg 09/07/24 08:00 09/11/24 07:57
Ferrous Sulfate 325 Mg Tablet PO 10/05/24 07:59 325 mg
DAILY CLAUDIO Administration
Furosemide 40 mg 09/11/24 16:00
Furosemide 20 Mg (10 Mg/Ml) 2 Ml Vial IV 10/09/24 15:59
BID AT 0800,1600 CLAUDIO
Gabapentin 100 mg 09/06/24 14:10 09/11/24 07:57
Gabapentin 100 Mg Capsule PO 10/04/24 14:09 100 mg
TID CLAUDIO Administration
Guaifenesin 1,200 mg 09/09/24 20:00 09/11/24 07:58
Guaifenesin 600 Mg Extended Release Tablet PO 10/07/24 19:59 1,200 mg
Q12 CLAUDIO Administration
Potassium Chloride 20 meq in 50 mls @ 50 mls/hr 09/06/24 14:10
Kcl IV 10/04/24 14:09
PRN PRN
serum K+ less than 4 mmol/L
Sodium Chloride 500 mls @ 10 mls/hr 09/06/24 14:10 09/10/24 14:24
Nss IV 10/04/24 06:46 Not Given
CORDIS CLAUDIO
Levothyroxine Sodium 50 mcg 09/04/24 06:00 09/11/24 06:07
Levothyroxine 50 Mcg Tablet PO 10/02/24 05:59 50 mcg
DAILY@0600 CLAUDIO Administration
Lidocaine 1 patch 09/07/24 08:00 09/11/24 07:58
Lidocaine 4% Topical Patch TOPICAL 10/05/24 07:59 Not Given
DAILY CLAUDIO
Protocol
Magnesium Hydroxide 30 ml 09/06/24 14:10 09/10/24 22:42
Milk Of Magnesia 30 Ml Cup PO 10/04/24 14:09 30 ml
BIDPRN PRN Administration
if no BM in three days
Magnesium Oxide 500 mg 09/07/24 08:00 09/11/24 07:58
Magnesium Oxide 500 Mg Tablet PO 10/05/24 07:59 500 mg
BID CLAUDIO Administration
Metoprolol Tartrate 25 mg 09/11/24 20:00
Metoprolol 25 Mg Regular Release Tablet PO 10/09/24 19:59
Q12 CLAUDIO
Montelukast Sodium 10 mg 09/04/24 18:00 09/10/24 17:59
Montelukast Sodium 10 Mg Tablet PO 10/02/24 17:59 10 mg
QPM CLAUDIO Administration
Ondansetron HCl 4 mg 09/06/24 14:10 09/09/24 13:53
Ondansetron 4 Mg/2 Ml Vial IV 10/04/24 14:09 4 mg
Q8HPRN PRN Administration
nausea/vomiting
Oxycodone HCl 2.5 mg 09/06/24 14:10 09/08/24 16:58
Oxycodone 5 Mg Regular Release Tablet PO 09/20/24 14:09 2.5 mg
Q4HPRN PRN Administration
mild pain
Oxycodone HCl 5 mg 09/06/24 14:10 09/07/24 20:10
Oxycodone 5 Mg Regular Release Tablet PO 09/20/24 14:09 5 mg
Q4HPRN PRN Administration
moderate pain
Pantoprazole Sodium 40 mg 09/04/24 08:00 09/11/24 07:57
Pantoprazole 40 Mg Delayed Release Tablet PO 10/02/24 07:59 40 mg
DAILY CLAUDIO Administration
Patch Removal 1 patch 09/07/24 20:00 09/10/24 20:35
Remove Lidocaine Patch REMOVE 10/05/24 19:59 1 patch
DAILY@2000 CLAUDIO Administration
Patient Own Medication 0 unit 09/09/24 11:30 09/11/24 09:47
Insulin Pump - Patient's Own Novolog (Aspart) SC 10/07/24 11:29 9.09 unit
ACHS CLAUDIO Administration
Patient Own Medication 0 unit 09/09/24 09:00
Insulin Pump - Patient's Own Novolog (Aspart) SC 10/07/24 08:59
PRN PRN
hyperglycemia
Penicillin V Potassium 250 mg 09/05/24 06:00 09/11/24 06:07
Penicillin V Potassium 250 Mg Tablet PO 250 mg
Q6 CLAUDIO Administration
Potassium Chloride 20 meq 09/11/24 20:00
Potassium Chloride 20 Meq Extended Release Tablet PO 10/09/24 19:59
BID CLAUDIO
Senna/Docusate Sodium 1 tablet 09/06/24 20:00 09/11/24 07:57
Docusate W/Senna (María-Colace) Tablet PO 10/04/24 19:59 1 tablet
Q12 CLAUDIO Administration
Sodium Chloride 0 flush 09/07/24 07:00
Sodium Chloride 0.9% (Flush) Syringe IV 10/05/24 06:59
PER PROTOCOL CLAUDIO
Vitals:�
�
Temp Pulse Resp BP Pulse Ox
96.7 F L 91 16 148/59 97
09/11/24 08:00 09/11/24 08:00 09/11/24 08:00 09/11/24 07:59 09/11/24 08:30
Height 5 ft 4 in
Actual Weight 101.7 kg
Body Mass Index (BMI) 38.5
Physical Exam:�
General Appearance/Observation: Well-developed, well-nourished individual in no apparent distress.�
Pain/Comfort Assessment: Sternotomy wound pain well controlled
Mood/Affect: Appropriate�
�
Integumentary/Operative Site:�
�� Pressure Ulcer Evaluation: absent over heels.�
�� Other Type of Wound: sternotomy wound well bandaged with no strikethrough on out layer. Medial right knee wound from vessel graft�
�
Eyes: Conjunctiva/Lids: normal Pupils: pupils equal round and reactive to light and Accommodation�
Ears/Nose/Throat: oral mucosa moist,� throat clear. Lips/Teeth/Gums: normal. No pain to palpation of pinnae
Neck: No muscle spasm or tenderness�
Cardiovascular: Heart: regular, no murmur�
Pulses: radial 2+ bilaterally�
Respiratory: Respiratory Effort/Chest Expansion: normal. Auscultation: basilar crackles. Auscultating lower lung emerson less clear due to sternal binder
Gastrointestinal: abdomen not tender, no distension, normal abdominal bowel sounds�
Genitourinary: No Wilson�
Rectal Exam: Deferred�
Extremities: Edema: Nonpitting pedal edema Cyanosis: None Trophic changes: None�
�
�
Neurology Exam:�
Orientation: Alert, Oriented to self, Time, Place�
Memory: Intact immediately and at 3 minutes�
Higher cortical function�
Repetition: Intact�
Comprehension: Intact�
Two step command: Intact�
Naming: Intact�
�
Cranial Nerves:�
�� CNII: Pupillary light reflex: Intact��� Visual Field: Intact�
�� CN III, IV, : Extraocular muscles: Intact��
�� CN V: Facial Sensation at Forehead: Intact, Maxilla: Intact, Mandible: Intact �
�� CN VII: Facial movement: Symmetric�
�� CN VIII: Hearing: Normal. Hearing intact to finger rub b/l��
�� CN IX/X: Speech & swallow: Normal, Position of Uvula: Midline�
�� CN XI: Shoulder shrug: Symmetric�
�� CN XII: Tongue protrusion: Midline�
�
Sensory:�
�� Light touch: Intact in bilateral upper and lower extremities�
�
Reflexes:�
�� Biceps: 2+ bilaterally�
�� Brachioradialis: 2+ bilaterally�
�� Triceps: 2+ bilaterally�
�� Patellar: 2+ bilaterally�
�� Achilles: 2+ bilaterally�
�� Babinski: Down going bilaterally�
�� Clonus: None�
�� Kamille: Negative bilaterally�
Cerebellar: Dysmetria/Ataxia: None�
�
Musculoskeletal:�
�
Motor: (Manual muscle scale 0-5)�
Muscle� SA� EF� WE� EE� FF� FA� HF� KE� DF� EHL� PF�
Right��� -� 5� 5� 5� 5� 5� 5� 5� 5� 5� 5�
Left� -� 5� 5� 5� 5� 5� 3� 5� 5� 5� 5�
�
Tone: Normal in all extremities�
Range of Motion: Passively within normal limits in all extremities.
Given sternal precautions, shoulder ROM tested to 90 degrees and shoulder abduction deferred.
�
Lab Results�
��
09/11/24 04:31
09/11/24 04:31
WBC 15.0 10^3/uL (4.8-10.8) H 09/11/24 04:31
Hgb 8.8 g/dL (12.0-16.0) L 09/11/24 04:31
Hct 25.2 % (37.0-47.0) L 09/11/24 04:31
MCV 85.1 fL (81.0-99.0) 09/11/24 04:31
Plt Count 247 10^3/uL (130-400) D 09/11/24 04:31
PT 22.4 Sec (11.4-14.6) H 09/06/24 15:35
INR 1.96 09/06/24 15:35
Sodium 131 mmol/L (135-145) L 09/11/24 04:31
Potassium 4.2 mmol/L (3.5-5.1) 09/11/24 04:31
Chloride 99 mmol/L (98-107) 09/11/24 04:31
Carbon Dioxide 29 mmol/L (22-30) 09/11/24 04:31
BUN 25 mg/dl (7-17) H 09/11/24 04:31
Creatinine 0.8 mg/dL (0.6-1.0) 09/11/24 04:31
eGFR > 60.00 09/11/24 04:31
Glucose 76 mg/dl (70-99) 09/11/24 04:31
Hemoglobin A1c 6.9 % (4.0-5.6) H 09/03/24 12:42
Calcium 8.3 mg/dl (8.4-10.2) L 09/11/24 04:31
Magnesium 2.1 mg/dl (1.6-2.3) 09/11/24 04:31
Total Bilirubin 0.7 mg/dl (0.2-1.3) 09/06/24 05:11
AST 20 U/L (14-36) 09/06/24 05:11
ALT 20 U/L (0-35) 09/06/24 05:11
Alkaline Phosphatase 58 U/L (38-126) 09/06/24 05:11
Total Protein 5.6 g/dl (6.3-8.2) L 09/06/24 05:11
Albumin 3.5 g/dl (3.5-5.0) 09/06/24 05:11
Diagnostic Results: as per HPI�
�
Assessment�
Ms. Tana Knutson is a 74-year-old female with PMH notable for CAD (cardiac cath 08/01/24), aortic stenosis, asthma, RATNA on CPAP, hypertension, diabetes, neuropathy, who is postop from CABG x 3 and AVR on 09/06/24 after presenting with chest pain.
Plan��
PM&R PT/OT to increase independence with ADLs, improve balance, coordination, endurance, strength, mobility, community reintegration, decreased burden of care on others and family education.�
CAD/NSTEMI S/P CABG x 3 & AVR: Sternal precautions.� Aspirin 81 mg p.o. daily, clopidogrel 75 mg p.o. daily, atorvastatin 80 mg p.o. at bedtime, metoprolol 25 mg p.o. twice daily, BP control.� Monitor incision, pain control.��Amiodarone 200 mg p.o.
3 times daily
HTN: continue losartan 100 mg p.o. daily, monitor closely�
HLD: Atorvastatin 80 mg p.o. bedtime
CHF: EF 60%, metoprolol 25 mg p.o. twice daily, monitor fluid status�
�
DM II: Accu-Cheks, insulin sliding scale, metformin, aspart, lantus.��Bexagliflozin 20 mg p.o. daily
Hypothyroidism: levothyroxine�50 mcg p.o. daily at 6 AM
�
RATNA: possible CPAP use.��
����������
Bilateral lower extremity edema: Consider TEDS as able. Increased fluid will cause more force requirement to move lower extremities which requires more strength and increases fatigue.�
Anemia: Post-op and often multifactorial.� Continue to monitor.�
�
Psych: Psychology consult.� Monitor mood, adjust medications as needed.��
Skin: monitor for pressure sores/rashes/lesions.�
Pain: acetaminophen or oxycodone as needed.�
Bowel: Colace and Senna, PRN bisacodyl.�
Bladder: Time void, PVRs, PRN straight cath.�
GI Prophylaxis: Pantoprazole�
DVT Prophylaxis: Aspirin 81 mg p.o. daily
Pulmonary: Incentive spirometry�
Morbid obesity: Continue to dormitory counselor patient about diet adjustments to control obesity. Body habitus and increased force to move body and extremities causes further difficulty with functional tasks.�
Safety: Continue to reinforce assistance with all transfers.�
Code Status:� Full code
Dispo (date/plan/equipment needs): Home with family care.� Social history reviewed.�
�
Functional and Medical Goals: Modified Independent with ADL�s, ambulation, transfers�
�
SUMMARY�
�
Discharge Destination: Acute rehab�
�
Summary of recommendations:�
- Discharge Destination: Acute rehab�will be beneficial for helping patient maximize function with sternal precautions
- Please comment on dvt chemoprophylaxis restrictions.
- Patient must be stable on oral pain medications.�
- Blood pressure must be less than 180 systolic and 100 diastolic for 24 hours before being stable for transfer to SNF/acute rehab.�
�
Will continue to follow patient.��
�
Thank you for allowing me to care for your patient. Please contact me with any questions or concerns.�
�
This note was dictated using a voice recognition system. Please excuse any typographical errors from fountain vending mechanic. If you believe there are any discrepancies, please notify our office.�
�
Consultation
-
Date/Time Consultation Requested: 09/10/24
Date/Time Consultation Performed: 09/11/24
Requesting Provider: Juan Diego Malloy
Performing Provider: Seng Mccord
Reason for Consultation: CAD s/p CABGx3 and aortic valve replacement

Documented by User: Seng Chiang MD 09/11/24 20:03
Consultation - Medical
-
Referring Provider:�Juan Diego Malloy
Chief Complaint:��CAD s/p CABGx3 and aortic valve replacement
�
History of Present Illness:��Patient is a 74-year-old right-handed female with PMH notable for CAD (cardiac cath 08/01/24), aortic stenosis, asthma, RATNA on CPAP, hypertension, diabetes, neuropathy, who developed worsening chest pain symptoms that
would not go away. She recently had a syncopal episode and so hospital for further evaluation and went to [facility] for further evaluation. Concern with coronary artery disease. She followed up with Dr. William Tate and had a positive
stress test office.. She had a cardiac catheterization 08/01/2024 at [facility] significant for coronary artery disease with planned elective CABG 09/16/[address] Malloy. She had another episode of chest pain that would not resolve
09/03/2024. They took her to the [facility] she was transferred to [facility] for further evaluation since she had her cardiac catheterization there and plan to getting her CABG. Given her worsening symptoms she had a CABG x 3 with
AVR as well as left atrial clip on 09/06/24. Postoperatively she is doing well with postoperative anemia. Denies any other concerns. Pain controlled with medication.
Diagnoses:
Multivessel CAD status post CABG x 3, AVR 09/06/2024, left
Unstable angina/NSTEMI
Moderate to severe aortic stenosis
Syncopal episode 05/2024
Perioperative mechanical ventilation
Postop anemia
�
Past Medical History:��
Neuropathy
Asthma
RATNA on CPAP
Hypertension
Hyperlipidemia
Hypothyroidism
OA w/ significant cervical and B/L shoulder involvement
Parotid tumor s/p Rx
IBS
Reflux
Diabetes
Cataract status post surgery
Vitreous detachment with neovascularization
Endometrial and uterine cancer 2003 status post PRISCILA
Vasovagal syncope
Obesity
Procedure History:��CABGx3 and AVR on 09/06/24
Family History:�Father with CVA or aneurysms. Mother with Alzheimer's dementia, A-fib, and heart disease. Brother with CKD, HTN bladder cancer. Brother with prostate cancer, sister with breast cancer. you also try doing auto driving again people
access disorder
�
Social History:�
Functional Level Premorbidly: Independent with all activities�
Functional Level Currently:��OT: Significant assistance for lower body ADLs, minimal assistance for toileting, minimal/moderate assistance for transfers, minimal assistance for functional mobility in room and bathroom with rolling walker and
supervision for standing grooming at sink. Will benefit from acute rehab. PT: Ambulatory without assistive device. Required minimal/moderate assistance x 1-2 people. Physical impairments include decreased endurance, balance, sensation, muscle
strength. Recommend acute rehab
Tobacco: Denies�
Alcohol: Denies�
Drug use: Denies�
�
Lives with:��alone
24-hour assistance available:��no. All family have jobs and/or children to take care of
Number of floors:��1
# steps to enter:��1
Driving:��yes
Occupation:��retired
��
�
Allergies:��
�
Allergy/AdvReac Type Severity Reaction Status Date / Time
Cephalosporins Allergy Severe Swelling Verified 08/01/24 10:07
Iodinated Contrast Media Allergy Severe Shortness Verified 08/01/24 10:07
of Breath
adhesive Allergy Intermediate Rash Verified 08/01/24 10:07
phenobarbital Allergy Unknown Unknown Verified 08/01/24 10:07
codeine Allergy Unknown Verified 08/01/24 10:07
insulin lispro (From Humalog Allergy Rash Verified 08/01/24 10:07
U-100 Insulin)
shellfish derived Allergy Unknown Verified 08/01/24 10:07
diphenhydramine (From AdvReac TACHYCARDIA Verified 08/01/24 10:07
Benadryl)
Review of Systems:�
Constitutional: (x) Normal _�
Eye: (x) Normal _�
Ear/Nose/Throat: Right ear fullness
Respiratory: SOB with walking (with physical therapy)
Cardiovascular: (x) Normal _�
Gastrointestinal: Nausea with walking, Diarrhea x 1 this morning
Genitourinary: (x) Normal _�
Musculoskeletal: (x) Normal _�
Integumentary: Pedal edema b/l
Neurologic: Headache bilateral at frontal sinuses 210
Psychiatric: (x) Normal _�
Endocrine: (x) Normal _�
Hematologic/Lymphatic: (x) Normal _�
Allergic/Immunologic: (x) Normal _�
�
Medications:�
�
Generic Name Dose Route Start Last Admin
Trade Name Freq PRN Reason Stop Dose Admin
Acetaminophen 650 mg 09/06/24 14:10
Acetaminophen 325 Mg Tablet PO 10/04/24 14:09
Q4HPRN PRN
mild pain,headache,temp >101F
Acetaminophen 1,000 mg 09/06/24 14:10 09/11/24 06:08
Acetaminophen 500 Mg Tablet PO 10/04/24 14:09 1,000 mg
TID@0600,1400,2200 CLAUDIO Administration
Amiodarone HCl 200 mg 09/06/24 16:00 09/11/24 07:57
Amiodarone 200 Mg Tablet PO 10/04/24 15:59 200 mg
TID CLAUDIO Administration
Ascorbic Acid 500 mg 09/07/24 08:00 09/11/24 07:57
Ascorbic Acid 500 Mg Tablet PO 10/05/24 07:59 500 mg
DAILY CLAUDIO Administration
Aspirin 81 mg 09/04/24 08:00 09/11/24 07:57
Aspirin 81 Mg (Enteric Coated) Tablet PO 10/02/24 07:59 81 mg
DAILY CLAUDIO Administration
Atorvastatin Calcium 80 mg 09/03/24 22:00 09/10/24 22:42
Atorvastatin (Lipitor) 80 Mg Tablet PO 10/01/24 21:59 80 mg
HS CLAUDIO Administration
Bisacodyl 10 mg 09/06/24 14:10
Bisacodyl 10 Mg Rectal Suppository RECTAL 10/04/24 14:09
DAILYPRN PRN
constipation
Clopidogrel Bisulfate 75 mg 09/07/24 08:00 09/11/24 07:57
Clopidogrel 75 Mg Tablet PO 10/05/24 07:59 75 mg
DAILY CLAUDIO Administration
Cyclobenzaprine HCl 5 mg 09/06/24 14:10 09/07/24 23:17
Cyclobenzaprine 10 Mg Tablet PO 10/04/24 14:09 5 mg
Q8HPRN PRN Administration
muscle spasm
Ferrous Sulfate 325 mg 09/07/24 08:00 09/11/24 07:57
Ferrous Sulfate 325 Mg Tablet PO 10/05/24 07:59 325 mg
DAILY CLAUDIO Administration
Furosemide 40 mg 09/11/24 16:00
Furosemide 20 Mg (10 Mg/Ml) 2 Ml Vial IV 10/09/24 15:59
BID AT 0800,1600 CLAUDIO
Gabapentin 100 mg 09/06/24 14:10 09/11/24 07:57
Gabapentin 100 Mg Capsule PO 10/04/24 14:09 100 mg
TID CLAUDIO Administration
Guaifenesin 1,200 mg 09/09/24 20:00 09/11/24 07:58
Guaifenesin 600 Mg Extended Release Tablet PO 10/07/24 19:59 1,200 mg
Q12 CLAUDIO Administration
Potassium Chloride 20 meq in 50 mls @ 50 mls/hr 09/06/24 14:10
Kcl IV 10/04/24 14:09
PRN PRN
serum K+ less than 4 mmol/L
Sodium Chloride 500 mls @ 10 mls/hr 09/06/24 14:10 09/10/24 14:24
Nss IV 10/04/24 06:46 Not Given
CORDIS CLAUDIO
Levothyroxine Sodium 50 mcg 09/04/24 06:00 09/11/24 06:07
Levothyroxine 50 Mcg Tablet PO 10/02/24 05:59 50 mcg
DAILY@0600 CLAUDIO Administration
Lidocaine 1 patch 09/07/24 08:00 09/11/24 07:58
Lidocaine 4% Topical Patch TOPICAL 10/05/24 07:59 Not Given
DAILY CLAUDIO
Protocol
Magnesium Hydroxide 30 ml 09/06/24 14:10 09/10/24 22:42
Milk Of Magnesia 30 Ml Cup PO 10/04/24 14:09 30 ml
BIDPRN PRN Administration
if no BM in three days
Magnesium Oxide 500 mg 09/07/24 08:00 09/11/24 07:58
Magnesium Oxide 500 Mg Tablet PO 10/05/24 07:59 500 mg
BID CLAUDIO Administration
Metoprolol Tartrate 25 mg 09/11/24 20:00
Metoprolol 25 Mg Regular Release Tablet PO 10/09/24 19:59
Q12 CLAUDIO
Montelukast Sodium 10 mg 09/04/24 18:00 09/10/24 17:59
Montelukast Sodium 10 Mg Tablet PO 10/02/24 17:59 10 mg
QPM CLAUDIO Administration
Ondansetron HCl 4 mg 09/06/24 14:10 09/09/24 13:53
Ondansetron 4 Mg/2 Ml Vial IV 10/04/24 14:09 4 mg
Q8HPRN PRN Administration
nausea/vomiting
Oxycodone HCl 2.5 mg 09/06/24 14:10 09/08/24 16:58
Oxycodone 5 Mg Regular Release Tablet PO 09/20/24 14:09 2.5 mg
Q4HPRN PRN Administration
mild pain
Oxycodone HCl 5 mg 09/06/24 14:10 09/07/24 20:10
Oxycodone 5 Mg Regular Release Tablet PO 09/20/24 14:09 5 mg
Q4HPRN PRN Administration
moderate pain
Pantoprazole Sodium 40 mg 09/04/24 08:00 09/11/24 07:57
Pantoprazole 40 Mg Delayed Release Tablet PO 10/02/24 07:59 40 mg
DAILY CLAUDIO Administration
Patch Removal 1 patch 09/07/24 20:00 09/10/24 20:35
Remove Lidocaine Patch REMOVE 10/05/24 19:59 1 patch
DAILY@2000 CLAUDIO Administration
Patient Own Medication 0 unit 09/09/24 11:30 09/11/24 09:47
Insulin Pump - Patient's Own Novolog (Aspart) SC 10/07/24 11:29 9.09 unit
ACHS CLAUDIO Administration
Patient Own Medication 0 unit 09/09/24 09:00
Insulin Pump - Patient's Own Novolog (Aspart) SC 10/07/24 08:59
PRN PRN
hyperglycemia
Penicillin V Potassium 250 mg 09/05/24 06:00 09/11/24 06:07
Penicillin V Potassium 250 Mg Tablet PO 250 mg
Q6 CLAUDIO Administration
Potassium Chloride 20 meq 09/11/24 20:00
Potassium Chloride 20 Meq Extended Release Tablet PO 10/09/24 19:59
BID CLAUDIO
Senna/Docusate Sodium 1 tablet 09/06/24 20:00 09/11/24 07:57
Docusate W/Senna (María-Colace) Tablet PO 10/04/24 19:59 1 tablet
Q12 CLAUDIO Administration
Sodium Chloride 0 flush 09/07/24 07:00
Sodium Chloride 0.9% (Flush) Syringe IV 10/05/24 06:59
PER PROTOCOL CLAUDIO
Vitals:�
�
Temp Pulse Resp BP Pulse Ox
96.7 F L 91 16 148/59 97
09/11/24 08:00 09/11/24 08:00 09/11/24 08:00 09/11/24 07:59 09/11/24 08:30
Height 5 ft 4 in
Actual Weight 101.7 kg
Body Mass Index (BMI) 38.5
Physical Exam:�
General Appearance/Observation: Well-developed, well-nourished female in no apparent distress.�
Pain/Comfort Assessment: Sternotomy wound pain well controlled
Mood/Affect: Appropriate�
�
Integumentary/Operative Site:�
�� Pressure Ulcer Evaluation: absent over heels.�
�� Other Type of Wound: sternotomy wound with aquacel with no strikethrough on out layer. Medial right knee wound with Aquacel and mild serosanguineous drainage.
�
Eyes: Conjunctiva/Lids: normal Pupils: pupils equal round and reactive to light and Accommodation�
Ears/Nose/Throat: oral mucosa moist,� throat clear. Lips/Teeth/Gums: normal. No pain to palpation of pinnae
Neck: No muscle spasm or tenderness�
Cardiovascular: Heart: regular, no murmur�
Pulses: radial 2+ bilaterally�
Respiratory: Respiratory Effort/Chest Expansion: normal. Auscultation: basilar crackles. Auscultating lower lung emerson less clear due to sternal binder
Gastrointestinal: abdomen not tender, no distension, normal abdominal bowel sounds�
Genitourinary: No Wilson�
Rectal Exam: Deferred�
Extremities: Edema: Nonpitting pedal edema Cyanosis: None Trophic changes: None�
�
�
Neurology Exam:�
Orientation: Alert, Oriented to self, Time, Place�
Memory: Intact immediately and at 3 minutes�
Higher cortical function�
Repetition: Intact�
Comprehension: Intact�
Two step command: Intact�
Naming: Intact�
�
Cranial Nerves:�
�� CNII: Pupillary light reflex: Intact��� Visual Field: Intact�
�� CN III, IV, : Extraocular muscles: Intact��
�� CN V: Facial Sensation at Forehead: Intact, Maxilla: Intact, Mandible: Intact �
�� CN VII: Facial movement: Symmetric�
�� CN VIII: Hearing: Normal. Hearing intact to finger rub b/l��
�� CN IX/X: Speech & swallow: Normal, Position of Uvula: Midline�
�� CN XI: Shoulder shrug: Symmetric�
�� CN XII: Tongue protrusion: Midline�
�
Sensory:�
�� Light touch: Intact in bilateral upper and lower extremities�
�
Reflexes:�
�� Biceps: 2+ bilaterally�
�� Brachioradialis: 2+ bilaterally�
�� Triceps: 2+ bilaterally�
�� Patellar: 2+ bilaterally�
�� Achilles: 2+ bilaterally�
�� Babinski: Down going bilaterally�
�� Clonus: None�
�� Kamille: Negative bilaterally�
Cerebellar: Dysmetria/Ataxia: None�
�
Musculoskeletal:�Motor: (Manual muscle scale 0-5)�
Muscle� SA� EF� WE� EE� FF� FA� HF� KE� DF� EHL� PF�
Right��� -� >3 5� >3� 5� 5� 4� 5� 5� 5� 5�
Left� -� >3 5� >3� 5� 5� 4� 5� 5� 5� 5�
�
Tone: Normal in all extremities�
Range of Motion: Passively within normal limits in all extremities, except sternal precautions limiting shoulder ROM bilaterally.
�
Lab Results�
��
09/11/24 04:31
09/11/24 04:31
WBC 15.0 10^3/uL (4.8-10.8) H 09/11/24 04:31
Hgb 8.8 g/dL (12.0-16.0) L 09/11/24 04:31
Hct 25.2 % (37.0-47.0) L 09/11/24 04:31
MCV 85.1 fL (81.0-99.0) 09/11/24 04:31
Plt Count 247 10^3/uL (130-400) D 09/11/24 04:31
PT 22.4 Sec (11.4-14.6) H 09/06/24 15:35
INR 1.96 09/06/24 15:35
Sodium 131 mmol/L (135-145) L 09/11/24 04:31
Potassium 4.2 mmol/L (3.5-5.1) 09/11/24 04:31
Chloride 99 mmol/L (98-107) 09/11/24 04:31
Carbon Dioxide 29 mmol/L (22-30) 09/11/24 04:31
BUN 25 mg/dl (7-17) H 09/11/24 04:31
Creatinine 0.8 mg/dL (0.6-1.0) 09/11/24 04:31
eGFR > 60.00 09/11/24 04:31
Glucose 76 mg/dl (70-99) 09/11/24 04:31
Hemoglobin A1c 6.9 % (4.0-5.6) H 09/03/24 12:42
Calcium 8.3 mg/dl (8.4-10.2) L 09/11/24 04:31
Magnesium 2.1 mg/dl (1.6-2.3) 09/11/24 04:31
Total Bilirubin 0.7 mg/dl (0.2-1.3) 09/06/24 05:11
AST 20 U/L (14-36) 09/06/24 05:11
ALT 20 U/L (0-35) 09/06/24 05:11
Alkaline Phosphatase 58 U/L (38-126) 09/06/24 05:11
Total Protein 5.6 g/dl (6.3-8.2) L 09/06/24 05:11
Albumin 3.5 g/dl (3.5-5.0) 09/06/24 05:11
Diagnostic Results: as per HPI�
�
Assessment�
74-year-old Right handed female with PMH notable for CAD (cardiac cath 08/01/24), aortic stenosis, asthma, RATNA on CPAP, hypertension, diabetes, neuropathy, who is postop from CABG x 3 and AVR and left atrial clip on 09/06/24 after presenting with chest
pain.
Plan��
PM&R PT/OT to increase independence with ADLs, improve balance, coordination, endurance, strength, mobility, community reintegration, decreased burden of care on others and family education.�
CAD/NSTEMI S/P CABG x 3 & Aortic stenosis S/P AVR and left atrial clip: Sternal precautions.� Aspirin 81 mg p.o. daily, clopidogrel 75 mg p.o. daily, atorvastatin 80 mg p.o. at bedtime, metoprolol 25 mg p.o. twice daily, BP control.� Monitor
incision, pain control.��Amiodarone 200 mg p.o. 3 times daily. Lasix
HTN: furosemide monitor closely�
HLD: Atorvastatin 80 mg p.o. bedtime�
DM I: Accu-Cheks, insulin pump.�
-Diabetic neuropathy: Gabapentin
Hypothyroidism: levothyroxine�50 mcg p.o. daily at 6 AM
�
RATNA: CPAP use.����������
Post operative Anemia: Continue to monitor.�
�
Psych: Psychology consult.� Monitor mood medications as needed.��
Pain: acetaminophen or oxycodone as needed.�
Bowel: Colace and Senna, PRN bisacodyl.�
Bladder: Time void, PVRs, PRN straight cath.�
GI Prophylaxis: Pantoprazole�
DVT Prophylaxis: Mechanical, suggest chemoprophylaxis
Pulmonary: Incentive spirometry�
Morbid obesity: Continue to dormitory counselor patient about diet adjustments to control obesity. Body habitus and increased force to move body and extremities causes further difficulty with functional tasks.�
Safety: Continue to reinforce assistance with all transfers.�
Code Status:� Full code
Dispo (date/plan/equipment needs): Home with family care.� Social history reviewed.�
Functional and Medical Goals: Modified Independent with ADL�s, ambulation, transfers�
Discharge Destination: Acute rehab�
Attending Statement: I saw and examined the patient today.� Reviewed care plan with patient and physician clinical services assistant.� I agree with the above subjective and ROS as documented and addended. The above physical exam and plan represents my exam and plan
as documented.�
Summary of recommendations:�
- Discharge Destination: Acute rehab�will be beneficial for helping patient maximize function while monitoring medical concerns.
- Please comment on dvt chemoprophylaxis use.
RATNA: CPAP use.����������
Post operative Anemia: Continue to monitor.�
Morbid obesity: Continue to dormitory counselor patient about diet adjustments to control obesity. Body habitus and increased force to move body and extremities causes further difficulty with functional tasks.�
�
�
Will continue to follow patient.��
�
Thank you for allowing me to care for your patient. Please contact me with any questions or concerns.�
--- NOTE | 2024-09-11 10:56 | W.PN.CARDCBS ---
Addendum entered and electronically signed by López Holt DO 09/11/24 15:52:
I saw and examined the patient.
The General Purchasing Agent's note was reviewed and I agree with the note.
Comment:
Plan:
Heart rate and blood pressure well-controlled.
Continue postop CT surgical care
Remains in sinus rhythm on amiodarone and Lopressor
Stable from a cardiac standpoint for rehab, tentative for next 24 hours
Original Note:
Today's Communication / Plan
-
continue post op care
follow on tele, in SR
continue po amio/lopressor
ambulate/IS
Impression / Plan
-
Primary Electronic Scale Tester: Dr. Tate of [facility]
Assessment:
Presented with CP to [facility], was scheduled for CABG 09/16/24 as OP, transferred to for urgent AVR/CABG
Status post CABG x 3 related to LAD, GSV to OM 2, GSV to RPDA, THOMAS clip, #23 bioprosthetic AVR 09/06/24
Anemia status post 1 unit PRBC
Multivessel CAD
Aortic stenosis
Type 1 diabetes
Peripheral neuropathy
Hypertension
Hyperlipidemia
History of syncopal episode 05/2024
Asthma
IBS
Long COVID
Laryngopharyngeal reflux
Parotid tumor status postresection
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
Hypothyroidism
OA
Echo 07/31/2024: EF 55 to 60%, mild concentric LVH, mild left atrial enlargement, mild MAC, moderate aortic stenosis with peak/mean gradients 37/22 mmHg, ALEXANDRA 1.1 cm�, mild mitral, tricuspid, aortic, pulmonic insufficiency, grade 1 diastolic
dysfunction, PASP 20 millimeters mercury
Plan:
-Status post CABG x 3 related to LAD, GSV to OM 2, GSV to RPDA, THOMAS clip, #23 bioprosthetic AVR 09/06/24
-hgb 8.8, improved s/p 1 U PRBCs 09/10. continue asa, plavix
-on review of tele, SR with brief period of frequent ectopy, perhaps brief runs of afib yesterday afternoon. was given IV amiodarone bolus with improvement, follow. lopressor dose increased to 25mg Q12H this AM. continue po amio
-continue diuresis. follow hyponatremia
-was on regimen of losartan 100mg daily and toprol 25mg daily prior to admission
-continue OOB/IS
-plan for [facility], tentatively planning for 09/12.
-d/w nursing
Progress Note - Electronic Scale Tester
Subjective
Date of Service: September 11, 2024
reports overall feeling well.
Objective
Labs:
09/11/24 04:31
09/11/24 04:31
Labs
Hgb 8.8 g/dL (12.0-16.0) L 09/11/24 04:31
Hct 25.2 % (37.0-47.0) L 09/11/24 04:31
Plt Count 247 10^3/uL (130-400) D 09/11/24 04:31
PT 22.4 Sec (11.4-14.6) H 09/06/24 15:35
INR 1.96 09/06/24 15:35
APTT 39.0 Sec (23.4-35.0) H 09/06/24 15:35
Sodium 131 mmol/L (135-145) L 09/11/24 04:31
Potassium 4.2 mmol/L (3.5-5.1) 09/11/24 04:31
BUN 25 mg/dl (7-17) H 09/11/24 04:31
Creatinine 0.8 mg/dL (0.6-1.0) 09/11/24 04:31
Glucose 76 mg/dl (70-99) 09/11/24 04:31
Vital Signs and I&O:
Vital Signs
Temp Pulse Resp BP Pulse Ox
96.7 F L 91 16 148/59 97
09/11/24 08:00 09/11/24 08:00 09/11/24 08:00 09/11/24 07:59 09/11/24 08:30
Vital Signs
Temp Pulse Resp BP Pulse Ox
96.7 F L 91 16 148/59 97
09/11/24 08:00 09/11/24 08:00 09/11/24 08:00 09/11/24 07:59 09/11/24 08:30
Intake & Output
09/09/24 09/10/24 09/11/24 09/12/24
07:59 07:59 07:59 07:59
Intake Total 977.7 / 991.0 1459.3 / 1559.3 640 / 640
Output Total 2860 / 2935 2260 / 2410 2250 / 2250
Balance -1882.3 / -1944.0 -800.7 / -850.7 -1610 / -1610
Physical Exam
Physical Exam
GEN: No distress, awake, alert, oriented x3. obese. sitting in chair
HEENT: supple, anicteric, mmm, eomi
LUNGS: CTA B/L, no wheezes/rales
CV: Reg, S1/S2, no murmur
ABD: soft, BS+, NT/ND
EXT: No cyanosis, clubbing. trace edema of B/L LE
NEURO: Gross non-focal
SKIN: Warm, pink, dry. No rash. Sternotomy dressing c/d/i
--- NOTE | 2024-09-11 12:04 | CM ---
Addendum entered by Jennifer Lincoln 09/11/24 15:30:
Received telephone call from [facility] who states the bed on is no longer available, but they will have a bed on Monday if needed.
Original Note:
Reviewed chart.. Met with Mrs. Knutson and telephone call to Nevin garibay to review discharge plans. [facility] would have bed available of if medically stable and if she needs that level of care. Telephone call to [facility]iaison who states they will not have a bed tomorrow. Family states they would like [facility] at [place] if possible. Medical work-up in progress. The discharge plan is to go to some level of inpatient rehab. [facility] [place] verses
SNF at [facility] when medically stable.
[2024-09-11 13:22] LABS: Glucose - Point of Care 164 mg/dl (70-99)
[2024-09-11] MEDS: PT'S OWN INSULIN PUMP - NovoLOG 5.79 UNIT SC (13:25)
[2024-09-11] MEDS: TYLENOL PO (13:27)
[2024-09-11] MEDS: NSS IV (13:27)
--- NOTE | 2024-09-11 16:42 | W.DCSUMMARY ---
Discharge Summary
Discharge Data
Date of Admission: 09/03/24
Date of Discharge: 09/13/24
-
Pending Results: No
Hospital Course
Primary care physician: Dr. Renate Pritchett
Outpatient supply chain associate: Dr. Ken Tate
Inpatient consultants: [facility]
Procedures:
1. AVR (inspiris 23), CABG x 3 (PATEL-LAD, SVG-OM, SVG-PDA), with eLAA by Dr. Juan Diego Malloy on 09/06/24
Primary Diagnosis:
1. Coronary Artery Disease
Secondary Diagnoses:
1. Aortic Stenosis
2. T1DM
3. RATNA/CPAP
4. HTN
5. HLD
6. Hypothyroidism
7. R partial Vitros Detachment
8. Endometrial & Uterine Ca s/p PRISCILA (2002)
9. Vasovagal Syncope
10. Class II Obesity
HPI:
Ms. Tana Knutson is a 74-year-old female with a known PMHx of CAD and who presented to [facility] with complaints of chest pain. Upon presentation, she reported 5/10 L SSCP without any alleviating or aggravating factors. She denied any
SOB, COSTELLO, orthopnea, edema, lightheadedness, or dizziness. Her chest pain continued despite initiation of nitroglycerin and heparin infusions. She was transferred to [facility] further medical management and CABG/AVR evaluation. Ms. Knutson initially
obtained outpatient evaluation with the CTS team at [facility] for CABG/AVR in which she was scheduled for elective surgery prior to becoming symptomatic. On 09/06/24, Ms Knutson underwent an AVR/CABG x [address] Juan Diego Malloy. She was ultimately stable
for discharge on post-operative day 7 to an acute rehab facility.
Hospital course:
Ms. Tana Knutson is a 74-year-old female with a known PMHx of CAD and who presented to [facility] with complaints of chest pain. Upon presentation, she reported 5/10 L SSCP without any alleviating or aggravating factors. She denied any
SOB, COSTELLO, orthopnea, edema, lightheadedness, or dizziness. Her chest pain continued despite initiation of nitroglycerin and heparin infusions. She was transferred to [facility] further medical management and CABG/AVR evaluation. Ms. Knutson initially
obtained outpatient evaluation with the CTS team at [facility] for CABG/AVR in which she was scheduled for elective surgery prior to becoming symptomatic. Leading to surgery, Ms. Knutson was unable to obtain a [place] x-ray due to arthritis. On September
2004, patient underwent an AVR/CABG x 3/eLAA with Dr. Malloy. Please see surgeons of record for complete dictation of surgery. In progressive fashion, inotropic support, vasopressor support, central lines, chest tubes, and epicardial pacing
wires were discontinued. An insulin drip was initiated following surgery and was transitioned back to patient's preoperative regimen of personal insulin pump. Diabetic nurse practitioner was consulted in which further guidance towards
transitioning to insulin pump was obtained. She received a total of 2 units of packed red blood cell transfused during her postoperative course due to anemia. PT and OT were consulted on postoperative day 3 due to deconditioning. On postoperative
day 4, patient experienced postoperative atrial fibrillation for total of 10 minutes in which she converted to sinus rhythm after receiving an IV amiodarone bolus. On postoperative day 7, patient was tolerating diet, ambulating, and hemodynamically
stable for discharge. Pain was well-controlled with regimen of scheduled Tylenol. She was 1 kg above her preoperative weight of 99.2 kg with a discharge weight of 100.6 kg. She was aggressively diuresed postoperatively with intravenous
furosemide. She was discharged to [facility] with a plan to continue Lasix 40 mg daily for 7 days with concurrent potassium replacement. She will continue to take amiodarone 200 mg p.o. twice a day for 10 days then transition to amiodarone 200 mg
daily. She will follow-up with cardiology as an outpatient. Patient was scheduled to follow-up with Dr. Malloy in about 4 weeks following surgery. Instruction was provided to discontinue remaining chest tube sutures in 3-days following discharge.
Remaining left lower extremity sutures will be removed in 1-week from discharge. The importance of antibiotic use prior to dental procedures for endocarditis prophylaxis was further shared with the patient upon discharge.
Home medication changes:
- See list provided below
Discharge Plan
-
Patient Disposition: Acute Rehab Facility
Discharge Diagnosis/Procedures: CAD with Aortic Stenosis
s/p AVR (Inspiris #23), CABG x 3 (PATEL-LAD, SVG-OM, SVG-PDA), with eLAA
Condition: Good
Diet: Low Fat, Low Cholesterol, Low Sodium, Diabetic, Carb Controlled and Restrict fluids to 48 oz
Activity: As tolerated
Driving Restrictions: Not until seen by your Dr
Bathing Restrictions: OK to Shower
Other Services: Cardiac Rehab
Wound Care: No lotions, creams or powders on incision area. Shower Daily with use of soap & water on procedural sites.
Remaining chest tube sutures can be removed in 3-days.
Remaining left leg sutures can be removed in 7-days.
Specialty Instructions: Weigh Daily- Call MD for wt gain/loss 3 lbs overnight/5 lbs in 1 week
Activity Restrictions/Additional Instructions:
ACTIVITY:
-No strenuous activity: no heavy lifting, pushing, pulling anything over 15 pounds for one month
-continue to use stairs as tolerated
DRIVING RESTRICTIONS:
-No driving for one month or until approved by your surgeon
WOUND CARE:
-Shower daily. Use soap & water.
-No lotions, creams or powders on incision area.
DIET:
-continue a low fat/low cholesterol diet.
-If you are diabetic, continue carb controlled diet.
CARDIAC REHAB:
-Please make appointment to start in 5-6 weeks with your local hospital program. (See Cardiac Rehabilitation Discharge Booklet).
SPECIALTY INSTRUCTIONS:
-Weigh yourself daily. Call your physician for any weight gain/loss of 3 lbs overnight or 5 lbs in one week.
-REPORT any clicking noise or uneven appearance of your sternum to your surgeon immediately.
-If you smoke, you are instructed to quit. The [place] smoking hotline phone number is [phone]
Referrals:
Kathi Moore NP [Other] - 10/15/24 10:30 am
Ty [Other]
Referral Note:
[facility] [Outside] - 10/16/24 1:00 pm
Referral Note: Cardiac Rehab Orientation and� First Exercise appointment is on ____10/16/24 at 1:00 pm.
The Cardiac Rehab gym is located on the first floor of the [facility].
Juan Diego Malloy MD [Active, Cardiac Surgery] - 10/08/24 2:00 pm
UNKNOWN - PT NOT,INTERVIEWE [Family Provider]
Prescriptions:
New
amiodarone [Pacerone] 200 mg Tablet
200 mg PO BID Qty: 0 0RF
Rx Instructions:
200 mg BID until 09/25/24, then 200 mg daily.
clopidogrel 75 mg Tablet
75 mg PO DAILY Qty: 0 0RF
ferrous sulfate [FeroSul] 325 mg (65 mg iron) Tablet
325 mg PO DAILY Qty: 0 0RF
acetaminophen 325 mg Tablet
650 mg PO Q6HPRN PRN (Reason: mild pain,headache,temp >101F ) Qty: 0 0RF
sennosides-docusate sodium 8.6-50 mg Tablet
1 tab PO BIDPRN PRN (Reason: Constipation) Qty: 0 0RF
ascorbic acid (vitamin C) [Vitamin C] 500 mg Tablet
500 mg PO DAILY Qty: 0 0RF
oxycodone 5 mg Tablet
2.5 - 5 mg PO Q6HPRN PRN (Reason: moderate-severe pain unalleviated by acetaminophen) Qty: 0 0RF
furosemide 40 mg Tablet
40 mg PO DAILY 7 Days Qty: 0 0RF
potassium chloride 20 mEq Tablet,Er Particles/Crystals
20 meq PO DAILY 7 Days Qty: 7 0RF
guaifenesin 600 mg Tablet Extended Release 12hr
1,200 mg PO Q12 Qty: 0 0RF
Continued
aspirin 81 mg Tablet,Delayed Release (Dr/Ec)
81 mg PO DAILY
pantoprazole 40 mg Tablet,Delayed Release (Dr/Ec)
40 mg PO DAILY
cetirizine [Zyrtec] 10 mg Tablet
10 mg PO DAILY PRN (Reason: ALLERGIES)
levothyroxine 25 mcg Tablet
50 mcg PO DAILY
montelukast 10 mg Tablet
10 mg PO DAILY
atorvastatin [Lipitor] 80 mg tablet
80 mg PO HS Qty: 30 2RF
metoprolol succinate [Toprol XL] 25 mg tablet extended release 24 hr
25 mg PO DAILY Qty: 30 2RF
vitamin E 400 unit Tablet
45 mg PO DAILY
insulin aspart U-100 100 unit/mL Cartridge
1 sliding scale dose SC DIRECTED
cholecalciferol (vitamin D3) [Vitamin D3] 25 mcg (1,000 unit) Tablet
25 mcg PO DAILY
bexagliflozin [Brenzavvy] 20 mg Tablet
20 mg PO DAILY
Multi Vitamin
1 tab PO DAILY
Discontinued
potassium chloride [Klor-Con 10] 10 mEq Tablet Extended Release
10 meq PO DAILY
losartan 25 mg Tablet
100 mg PO DAILY
Discharge Orders:
Discharge Patient (As Directed); Ordered 09/13/24
Ordered By: Therese Hammer
Care Plan Goals
Care Plan Goals:
Problem: Readiness for enhanced knowledge related to diagnosis and treatment plan
Goal: Understand your diagnosis and treatment plan needs, including medications if applicable.
Instructions: Know your diagnosis, underlying causes and treatment plan options, including medications if applicable. Consult with your health care team to learn about your diagnosis and treatment plan, including medications if applicable.
Discharge Date and Time
Print Language: KHMER
--- NOTE | 2024-09-11 17:00 | PTCARENOTE ---
Pt received as a transfer from CVICU via wheelchair. Pt alert and oriented, denies any pain or discomfort. OOB in the chair since arrival to unit. Pt ambulated with 1 assist in the hallway, tolerated well but became slightly sob at the end of the
walk. No change in status from am assessment.
[2024-09-11] MEDS: SINGULAIR 10 MG PO (17:02)
[2024-09-11 17:15] LABS: Glucose - Point of Care 119 mg/dl (70-99)
--- NOTE | 2024-09-11 18:05 | W.PN.UPDATE ---
Update Note
Progress Note Update
CDI Query: Patient with expected acute blood loss anemia secondary to undergoing cardiothoracic surgery.
[2024-09-11] MEDS: PT'S OWN INSULIN PUMP - NovoLOG 6.8 UNIT SC (18:32)
[2024-09-11] MEDS: LOPRESSOR 25 MG PO (20:48)
[2024-09-11] MEDS: SENOKOT-S PO (21:07)
[2024-09-11] MEDS: REMOVE LIDOCAINE PATCH REMOVE (21:09)
[2024-09-11] MEDS: LIPITOR 80 MG PO (21:23)
[2024-09-11 21:58] LABS: Glucose - Point of Care 114 mg/dl (70-99)
[2024-09-11] MEDS: PT'S OWN INSULIN PUMP - NovoLOG 0.67 UNIT SC (22:22)
[2024-09-12] VITALS (10 sets, daily range): BP systolic 102–154; BP diastolic 49–81; PULSE 71–90; BMI 38.2
--- NOTE | 2024-09-12 02:12 | PTCARENOTE ---
pt NSR on monitor VSS. Pt ambulates in the hallway with x 1 person and RW. Pt c/o mild SOB after the walk, recovered with the rest. Safety measures in place, call karen w/in reach
[2024-09-12 04:22] LABS: Hematocrit 25.1 % (37.0-47.0); Hemoglobin 8.7 g/dL (12.0-16.0); Mean Corp Hgb Conc. 34.7 g/dL (33.0-37.0); Mean Corpuscular Volume 86.0 fL (81.0-99.0); Platelet Count 267 10^3/uL (130-400); Red Cell Dist. Width 14.5 % (11.5-14.5)
[2024-09-12 04:50] LABS: Blood Urea Nitrogen 24 mg/dl (7-17); Calcium 8.4 mg/dl (8.4-10.2); Carbon Dioxide 24 mmol/L (22-30); Chloride 99 mmol/L (98-107); Estimated Creatinine Clearance 80 ml/min; Glucose 121 mg/dl (70-99); Magnesium 2.3 mg/dl (1.6-2.3); Potassium 4.5 mmol/L (3.5-5.1); Sodium 129 mmol/L (135-145); eGFR > 60.00
[2024-09-12] MEDS: TYLENOL 1000 MG PO ×3 (06:05→21:11)
[2024-09-12] MEDS: SYNTHROID 50 MCG PO (06:05)
--- NOTE | 2024-09-12 06:06 | W.PN.CT ---
Addendum entered and electronically signed by Jim Pablo MD 09/12/24 08:46:
I saw and examined the patient.
The PA's note was reviewed and I agree with the note.
Comment:
D/c to [facility].
Original Note:
Today's Communication / Plan
-
pod#6
- transition to oral Lasix
- DC suture left leg
- ok for DVT prophylaxis at rehab (on ASA/Plavix)
- needs positive reinforcement of progress (lives alone, fearful)
Assessment / Plan
-
NSTEMI/MVCAD s/p CABG x3 (MAXI to LAD, GSV to OM2, GSV to RPDA), THOMAS clip 45 mm, SAVR (#23 Inspiris Resilia) with Dr. Malloy 09/07/2024 POD #5
Post op COLEMAN: Normal BiV function, AVR without PVL/AI, MG 4, trace MR, trace to mild TR, THOMAS excluded, good flow in all grafts
Syncope
DM1 (A1C 6.9)
hyponatremia
HTN
HLD
hypothyroidism
Parotid tumor s/p resection
endometrial cancer s/p hysterectomy
IBS
morbid obesity
Acute post op pain
Acute post op respiratory insufficiency
Acute post op anemia (expected)
Acute postop weight gain/hypervolemia-expected
Discussed patient care with: Cardiology, Nursing and Respiratory Therapy
Subjective
Procedure
s/p CABG x3 (MAXI to LAD, GSV to OM2, GSV to RPDA), THOMAS clip 45 mm, SAVR (#23 Inspiris Resilia) with Dr. Malloy 09/07/2024
-
Date of Service: September 12, 2024
Objective Data
-
Lab Results
09/12/24 03:46
09/12/24 03:46
PT 22.4 Sec (11.4-14.6) H 09/06/24 15:35
INR 1.96 09/06/24 15:35
APTT 39.0 Sec (23.4-35.0) H 09/06/24 15:35
Vital Signs
Vital Signs
Temp Pulse Resp BP Pulse Ox
98.2 F 85 17 102/81 98
09/12/24 03:32 09/12/24 03:32 09/12/24 03:32 09/12/24 03:32 09/12/24 03:32
CT Intake/Output/Weight
09/11/24 09/11/24 09/12/24
06:59 18:59 06:59
Intake Total 240 / 540 500 / 800 300 / 800
Output Total 300 / 1900 1550 / 1550
Balance -60 / -1360 -1050 / -750 300 / -750
SaO2: 98
Physical Exam
-
General: AOx3
Cardiovascular: Regular rate & rhythm
Respiratory: Clear
Sternum: Stable
Incision: Clean, Dry and Intact
Extremities: Edema +1 and No Erythema
Data Reviewed
-
Lab Results: Results Reviewed
Medications: Active Meds Reviewed
Chest X-Ray: Report Reviewed and Image Reviewed
[2024-09-12 07:48] LABS: Glucose - Point of Care 131 mg/dl (70-99)
[2024-09-12] MEDS: PT'S OWN INSULIN PUMP - NovoLOG 8.61 UNIT SC (08:40)
[2024-09-12] MEDS: PLAVIX 75 MG PO (08:58)
[2024-09-12] MEDS: FEOSOL 325 MG PO (08:58)
[2024-09-12] MEDS: VITAMIN C 500 MG PO (08:58)
[2024-09-12] MEDS: MAGNESIUM OXIDE 500 MG PO ×2 (08:58→20:26)
[2024-09-12] MEDS: ASPIR LOW (ENTERIC COATED) 81 MG PO (08:58)
[2024-09-12] MEDS: NEURONTIN 100 MG PO (08:59)
[2024-09-12] MEDS: PROTONIX 40 MG PO (08:59)
[2024-09-12] MEDS: KCL 20 MEQ PO ×2 (08:59→20:26)
[2024-09-12] MEDS: SENOKOT-S PO ×2 (09:04→20:27)
[2024-09-12] MEDS: PACERONE 200 MG PO ×3 (09:09→21:11)
[2024-09-12] MEDS: LOPRESSOR 25 MG PO (09:10)
[2024-09-12] MEDS: LASIX 40 MG IV (09:11)
[2024-09-12] MEDS: LIDOCAINE 4% PATCH 1 PATCH TOPICAL (09:13)
--- NOTE | 2024-09-12 11:33 | PN.DE.MGMTRT ---
Insulin Management
- -
09/12/2024 Diabetes Management Consult Follow up
Patient transferred from [facility] 09/03 with CP. PMH multivessel CAD, hypothyroid, sleep apnea with cpap, asthma, endometrial & uterine CA, HTN, HCL diabetes, aortic stenosis, vasovagal syncope. Prior to admission using the
tandem tslim pump with G6 CGM and novolog insulin. She was prescribed Brenzavvy but stopped 3 days ago. Also was prescribed invokanna and Victoza in the past but stopped due to cost. A1c 6.9%.
POD 6 s/p CABG x 3. Cr .7, eGFR > 60. Patient is awake alert and oriented oob in chair. Pump and CGM restarted 09/09. Glucose range yesterday 76 to 164. Fasting this AM 121.
Patient is using pump for meals and corrections. Will make no change to pump settings. Patient is due for infusion set change later today, she has all necessary equipment. Patient may transfer to [facility] later today.
Pump settings:
basal 1.7 units/hour, 24 hour basal total 41.04
Carb ratio 5.5
Sensitivity 21
Target 110
Active insulin 5 hours.
Discussed with nurse.
Will follow.
States she has had diabetes 50+ years, sees endocrine, [facility] [facility] at [facility] for ongoing care. Glucose 113 on admission.
Diabetes History
- -
Type of Diabetes: 1
Pre-Admission Diabetes Regimen
09/12/24
03:46
Creatinine 0.7
Lab Results
Hemoglobin A1c 6.9 % (4.0-5.6) H 09/03/24 12:42
Insulin Pump Settings
IP Diabetes Regimen
09/11/24 09/11/24 09/11/24
13:21 17:14 21:57
Glucose
POC Glucose 164 H 119 H 114 H
09/12/24 09/12/24
03:46 07:42
Glucose 121 H
POC Glucose 131 H
Meal type: Dinner
Amount consumed: 100%
Patient Education
--- NOTE | 2024-09-12 11:50 | W.PN.CARDCBS ---
Addendum entered and electronically signed by López Holt DO 09/12/24 12:40:
I saw and examined the patient.
The Lithostripper's note was reviewed and I agree with the note.
Comment:
Plan:
Remains stable from cardiac standpoint.
Heart rate and blood pressure remain controlled and she remains in sinus rhythm.
Continue dual antiplatelet therapy.
Outpatient cardiac follow-up arranged
[facility]
Original Note:
Today's Communication / Plan
-
in SR. continue toprol
continue asa, plavix
lasix 40mg BID
lipitor 80mg QPM
OP cardiac follow up arranged
for DC to [facility] per CT surgery
Impression / Plan
-
Primary Patient Relations Director: Dr. Tate of [facility]
Assessment:
Presented with CP to [facility], was scheduled for CABG 09/16/24 as OP, transferred to for urgent AVR/CABG
Status post CABG x 3 related to LAD, GSV to OM 2, GSV to RPDA, THOMAS clip, #23 bioprosthetic AVR 09/06/24
Anemia status post 1 unit PRBC
Multivessel CAD
Aortic stenosis
Type 1 diabetes
Peripheral neuropathy
Hypertension
Hyperlipidemia
History of syncopal episode 05/2024
Asthma
IBS
Long COVID
Laryngopharyngeal reflux
Parotid tumor status postresection
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
Hypothyroidism
OA
Echo 07/31/2024: EF 55 to 60%, mild concentric LVH, mild left atrial enlargement, mild MAC, moderate aortic stenosis with peak/mean gradients 37/22 mmHg, ALEXANDRA 1.1 cm�, mild mitral, tricuspid, aortic, pulmonic insufficiency, grade 1 diastolic
dysfunction, PASP 20 millimeters mercury
Plan:
-Status post CABG x 3 related to LAD, GSV to OM 2, GSV to RPDA, THOMAS clip, #23 bioprosthetic AVR 09/06/24
-hgb stable at 8.7. continue asa, plavix
-in SR on review of tele overnight. continue po amiodarone, toprol
-continue diuresis, appears to remain volume overloaded. follow hyponatremia
-currently remains off preadmission losartan 100mg daily
-continue OOB/IS
-plan for [facility] later today vs in AM
-OP cardiac follow up arranged
-will plan to sign off
-d/w CT surgery [employer]AMINER
Progress Note - Patient Relations Director
Subjective
Date of Service: September 12, 2024
reports some continued COSTELLO and sternal discomfort
Objective
Labs:
09/12/24 03:46
09/12/24 03:46
Labs
Hgb 8.7 g/dL (12.0-16.0) L 09/12/24 03:46
Hct 25.1 % (37.0-47.0) L 09/12/24 03:46
Plt Count 267 10^3/uL (130-400) 09/12/24 03:46
PT 22.4 Sec (11.4-14.6) H 09/06/24 15:35
INR 1.96 09/06/24 15:35
APTT 39.0 Sec (23.4-35.0) H 09/06/24 15:35
Sodium 129 mmol/L (135-145) L 09/12/24 03:46
Potassium 4.5 mmol/L (3.5-5.1) 09/12/24 03:46
BUN 24 mg/dl (7-17) H 09/12/24 03:46
Creatinine 0.7 mg/dL (0.6-1.0) 09/12/24 03:46
Glucose 121 mg/dl (70-99) H 09/12/24 03:46
Vital Signs and I&O:
Vital Signs
Temp Pulse Resp BP Pulse Ox
98.5 F 83 18 154/63 98
09/12/24 08:00 09/12/24 11:00 09/12/24 08:00 09/12/24 09:09 09/12/24 06:07
Vital Signs
Temp Pulse Resp BP Pulse Ox
98.5 F 83 18 154/63 98
09/12/24 08:00 09/12/24 11:00 09/12/24 08:00 09/12/24 09:09 09/12/24 06:07
Intake & Output
09/10/24 09/11/24 09/12/24 09/13/24
07:59 07:59 07:59 07:59
Intake Total 1459.3 / 1559.3 640 / 640 700 / 950 250 / 250
Output Total 2260 / 2410 2250 / 2250 1200 / 1200
Balance -800.7 / -850.7 -1610 / -1610 -500 / -250 250 / 250
Physical Exam
Physical Exam
GEN: No distress, awake, alert, oriented x3. obese. sitting in chair
HEENT: supple, anicteric, mmm, eomi
LUNGS: CTA B/L, no wheezes/rales
CV: Reg, S1/S2, no murmur
ABD: soft, BS+, NT/ND
EXT: No cyanosis, clubbing. 1+ edema of B/L LE
NEURO: Gross non-focal
SKIN: Warm, pink, dry. No rash. Sternotomy dressing c/d/i, aime-incisional ecchymoses healing
[2024-09-12 12:23] LABS: Glucose - Point of Care 184 mg/dl (70-99)
[2024-09-12] MEDS: PT'S OWN INSULIN PUMP - NovoLOG 10.36 UNIT SC (14:14)
[2024-09-12] MEDS: NSS IV (14:15)
--- NOTE | 2024-09-12 14:22 | CM ---
Chart reviewed. Patient is independent of ADLS, lives alone in a apartment [address], 1 MARLIN, 0 DME. PT evaluation recommending Acute Rehab. Patient is agreeable to [facility]. Bed is not available today. Plan is the patient will go to [facility] when bed is
available and patient is medically stable. CM to follow
[2024-09-12] MEDS: LASIX 40 MG PO (16:41)
--- NOTE | 2024-09-12 17:29 | PTCARENOTE ---
Discussed sternal precautions and post CAB care. Pacing wires clipped by CT surgery. VSS. Pt ambulated in the koch multiple times. Pt verbalized understanding. Will monitor.
[2024-09-12 18:02] LABS: Glucose - Point of Care 169 mg/dl (70-99)
[2024-09-12] MEDS: PT'S OWN INSULIN PUMP - NovoLOG 9.9 UNIT SC (18:12)
[2024-09-12] MEDS: SINGULAIR 10 MG PO (18:17)
[2024-09-12] MEDS: REMOVE LIDOCAINE PATCH 1 PATCH REMOVE (20:26)
[2024-09-12] MEDS: LIPITOR 80 MG PO (21:13)
[2024-09-12] MEDS: PT'S OWN INSULIN PUMP - NovoLOG 2.17 UNIT SC (21:33)
[2024-09-12 21:37] LABS: Glucose - Point of Care 168 mg/dl (70-99)
[2024-09-12 21:59] LABS: Glucose - Point of Care 195 mg/dl (70-99)
[2024-09-13] VITALS (8 sets, daily range): BP systolic 140–204; BP diastolic 52–69; PULSE 94; O2SAT 99; BMI 38.1
[2024-09-13 04:59] LABS: Hematocrit 25.3 % (37.0-47.0); Hemoglobin 8.6 g/dL (12.0-16.0); Mean Corp Hgb Conc. 34.0 g/dL (33.0-37.0); Mean Corpuscular Volume 87.2 fL (81.0-99.0); Platelet Count 309 10^3/uL (130-400); Red Cell Dist. Width 14.7 % (11.5-14.5)
[2024-09-13] MEDS: SYNTHROID 50 MCG PO (05:28)
[2024-09-13] MEDS: TYLENOL 1000 MG PO ×2 (05:28→14:28)
[2024-09-13 05:32] LABS: Blood Urea Nitrogen 25 mg/dl (7-17); Calcium 8.9 mg/dl (8.4-10.2); Carbon Dioxide 24 mmol/L (22-30); Chloride 102 mmol/L (98-107); Estimated Creatinine Clearance 70 ml/min; Glucose 99 mg/dl (70-99); Magnesium 2.3 mg/dl (1.6-2.3); Potassium 4.7 mmol/L (3.5-5.1); Sodium 133 mmol/L (135-145); eGFR > 60.00
--- NOTE | 2024-09-13 07:13 | PTCARENOTE ---
pt NSR , VSS. Pt with mild COSTELLO after walk in the hallway, recovered with rest. Ambulates with x 1 assist and RW. own CPAP at .
[2024-09-13 07:40] LABS: Glucose - Point of Care 145 mg/dl (70-99)
--- NOTE | 2024-09-13 07:42 | PN.DE.MGMTRT ---
Insulin Management
- -
09/13/2024 Diabetes Management Consult Follow up
Patient transferred from [facility] 09/03 with CP. PMH multivessel CAD, hypothyroid, sleep apnea with cpap, asthma, endometrial & uterine CA, HTN, HCL diabetes, aortic stenosis, vasovagal syncope. Prior to admission using the
tandem tslim pump with G6 CGM and novolog insulin. She was prescribed Brenzavvy but stopped 3 days ago. Also was prescribed invokanna and Victoza in the past but stopped due to cost. A1c 6.9%.
POD 7 s/p CABG x 3. Cr .7, eGFR > 60. Patient is awake alert and oriented oob in chair. Pump and CGM restarted 09/09. Glucose range yesterday 76 to 164. Fasting this AM 99 venous.
Patient is using pump for meals and corrections. Will make no change to pump settings. Patient for transfer to [facility] when bed available.
Pump settings:
basal 1.7 units/hour, 24 hour basal total 41.04
Carb ratio 5.5
Sensitivity 21
Target 110
Active insulin 5 hours.
Discussed with nurse.
Will follow.
States she has had diabetes 50+ years, sees endocrine, EM[facility] DISPATCH OPERATOR at [facility] for ongoing care. Glucose 113 on admission.
Diabetes History
- -
Type of Diabetes: 1
Pre-Admission Diabetes Regimen
09/13/24
03:48
Creatinine 0.8
Lab Results
Hemoglobin A1c 6.9 % (4.0-5.6) H 09/03/24 12:42
Insulin Pump Settings
IP Diabetes Regimen
09/12/24 09/12/24 09/12/24
07:42 12:22 17:51
Glucose
POC Glucose 131 H 184 H 169 H
09/12/24 09/12/24 09/13/24
21:31 21:57 03:48
Glucose 99
POC Glucose 168 H 195 H
09/13/24
07:30
Glucose
POC Glucose 145 H
Meal type: Dinner
Meal type: Lunch
Meal type: Breakfast
Amount consumed: 100%
Amount consumed: 100%
Amount consumed: 100%
Patient Education
--- NOTE | 2024-09-13 07:45 | W.PN.CT ---
Today's Communication / Plan
-
pod#7
- hemodynamically stable
- transitioned to oral Lasix
- voiding
- ok for DVT prophylaxis at rehab (on ASA/Plavix)
- needs positive reinforcement of progress (lives alone, fearful)
- OOB as tolerates
- dispo planning
Assessment / Plan
-
NSTEMI/MVCAD s/p CABG x3 (MAXI to LAD, GSV to OM2, GSV to RPDA), THOMAS clip 45 mm, SAVR (#23 Inspiris Resilia) with Dr. Malloy 09/07/2024 POD #7
Post op COLEMAN: Normal BiV function, AVR without PVL/AI, MG 4, trace MR, trace to mild TR, THOMAS excluded, good flow in all grafts
Syncope
DM1 (A1C 6.9)
hyponatremia
HTN
HLD
hypothyroidism
Parotid tumor s/p resection
endometrial cancer s/p hysterectomy
IBS
morbid obesity
Acute post op pain
Acute post op respiratory insufficiency
Acute post op anemia (expected)
Acute postop weight gain/hypervolemia-expected
Discussed patient care with: Care Team
Subjective
Procedure
s/p CABG x3 (MAXI to LAD, GSV to OM2, GSV to RPDA), THOMAS clip 45 mm, SAVR (#23 Inspiris Resilia) with Dr. Malloy 09/07/2024
-
Date of Service: September 13, 2024
Objective Data
-
Lab Results
09/12/24 03:46
09/12/24 03:46
PT 22.4 Sec (11.4-14.6) H 09/06/24 15:35
INR 1.96 09/06/24 15:35
APTT 39.0 Sec (23.4-35.0) H 09/06/24 15:35
Vital Signs
Vital Signs
Temp Pulse Resp BP Pulse Ox
98.2 F 85 18 119/54 99
09/12/24 18:43 09/12/24 21:11 09/12/24 18:43 09/12/24 21:11 09/12/24 18:43
CT Intake/Output/Weight
09/12/24 09/12/24 09/13/24
06:59 18:59 06:59
Intake Total 300 / 800 250 / 250
Balance 300 / -750 250 / 250
SaO2: 99
Physical Exam
-
General: Awake, Oriented and AOx3
Cardiovascular: Regular rate & rhythm
Respiratory: Clear and Equal
Sternum: Stable
Incision: Clean, Dry and Intact
Extremities: Edema +1
Data Reviewed
-
Lab Results: Results Reviewed
Medications: Active Meds Reviewed
Chest X-Ray: Image Reviewed
Vital Signs / Labs
-
Vital Signs and Labs:
Temp Pulse Resp BP Pulse Ox
97.8 F 86 17 153/64 98
09/13/24 03:31 09/13/24 07:00 09/13/24 03:31 09/13/24 03:32 09/13/24 03:32
09/13/24 03:48
09/13/24 03:48
09/12/24 09/12/24 09/12/24
07:42 12:22 17:51
WBC
RBC
Hgb
Hct
RDW
Sodium
BUN
POC Glucose 131 H 184 H 169 H
09/12/24 09/12/24 09/13/24
21:31 21:57 03:48
WBC 12.5 H
RBC 2.90 L
Hgb 8.6 L
Hct 25.3 L
RDW 14.7 H
Sodium 133 L
BUN 25 H
POC Glucose 168 H 195 H
[2024-09-13] MEDS: PT'S OWN INSULIN PUMP - NovoLOG 6.67 UNIT SC (07:54)
[2024-09-13] MEDS: LIDOCAINE 4% PATCH 1 PATCH TOPICAL (07:55)
[2024-09-13] MEDS: MAGNESIUM OXIDE 500 MG PO (07:56)
[2024-09-13] MEDS: PACERONE 200 MG PO ×2 (07:56→15:34)
[2024-09-13] MEDS: FEOSOL 325 MG PO (07:56)
[2024-09-13] MEDS: TOPROL XL 25 MG PO (07:57)
[2024-09-13] MEDS: PLAVIX 75 MG PO (07:57)
[2024-09-13] MEDS: VITAMIN C 500 MG PO (07:57)
[2024-09-13] MEDS: KCL 20 MEQ PO (07:57)
[2024-09-13] MEDS: ASPIR LOW (ENTERIC COATED) 81 MG PO (07:57)
[2024-09-13] MEDS: LASIX 40 MG PO ×2 (07:57→15:34)
[2024-09-13] MEDS: PROTONIX 40 MG PO (07:57)
[2024-09-13] MEDS: SENOKOT-S PO (07:58)
--- NOTE | 2024-09-13 10:33 | PTCARENOTE ---
Pt c/o BLE itching due to previous tape use. BLE washed and dried. No sting barrier wipe applied to BLE. Minimal redness noted. Will monitor.
[2024-09-13 12:06] LABS: Glucose - Point of Care 161 mg/dl (70-99)
[2024-09-13] MEDS: MUCINEX 1200 MG PO (12:08)
[2024-09-13] MEDS: PT'S OWN INSULIN PUMP - NovoLOG 10.72 UNIT SC (12:09)
[2024-09-13] MEDS: NSS IV (14:29)
[2024-09-13 17:08] LABS: Glucose - Point of Care 150 mg/dl (70-99)
== END 2024-09-13 18:07 | DRG 220 ==
LOC: IVU 09:54
PROVIDERS: Anesthesiology; Hospitalist; Nurse Practitioner; Student in an Organized Health Care Education/Training Program; ADMITTING PHYSICIAN Thoracic Surgery (Cardiothoracic Vascular Surgery); ATTENDING PHYSICIAN Thoracic Surgery (Cardiothoracic Vascular Surgery); CONSULT PHYSICIAN Internal Medicine; CONSULT PHYSICIAN Internal Medicine Cardiovascular Disease; CONSULT PHYSICIAN Physical Medicine & Rehabilitation
PROC: 06BQ0ZZ Excision of Left Saphenous Vein, Open Approach (ICD-10-PCS; 2024-09-06)
PROC: 02RF08Z Replacement of Aortic Valve with Zooplastic Tissue, Open Approach (ICD-10-PCS; 2024-09-06)
PROC: 02100ZC Bypass Coronary Artery, One Artery from Thoracic Artery, Open Approach (ICD-10-PCS; 2024-09-06)
PROC: 021109W Bypass Coronary Artery, Two Arteries from Aorta with Autologous Venous Tissue, Open Approach (ICD-10-PCS; 2024-09-06)
PROC: B24BZZ4 Ultrasonography of Heart with Aorta, Transesophageal (ICD-10-PCS; 2024-09-06)
PROC: 5A1221Z Performance of Cardiac Output, Continuous (ICD-10-PCS; 2024-09-06)
PROC: 02L70CK Occlusion of Left Atrial Appendage with Extraluminal Device, Open Approach (ICD-10-PCS; 2024-09-06)
PROC: 30233N1 Transfusion of Nonautologous Red Blood Cells into Peripheral Vein, Percutaneous Approach (ICD-10-PCS; 2024-09-07)
DX: I21.4 Non-ST elevation (NSTEMI) myocardial infarction (principal); D62 Acute posthemorrhagic anemia; E87.1 Hypo-osmolality and hyponatremia; I25.10 Atherosclerotic heart disease of native coronary artery without angina pectoris; E10.40 Type 1 diabetes mellitus with diabetic neuropathy, unspecified; E78.5 Hyperlipidemia, unspecified; I10 Essential (primary) hypertension; I35.0 Nonrheumatic aortic (valve) stenosis; I48.91 Unspecified atrial fibrillation; E87.70 Fluid overload, unspecified; R06.89 Other abnormalities of breathing; G47.33 Obstructive sleep apnea (adult) (pediatric); E66.812 Obesity, class 2; R82.71 Bacteriuria; D72.829 Elevated white blood cell count, unspecified; J45.909 Unspecified asthma, uncomplicated; E03.9 Hypothyroidism, unspecified; K21.9 Gastro-esophageal reflux disease without esophagitis; M19.90 Unspecified osteoarthritis, unspecified site; K58.9 Irritable bowel syndrome, unspecified; Z96.41 Presence of insulin pump (external) (internal); Z68.38 Body mass index [BMI] 38.0-38.9, adult; Z85.42 Personal history of malignant neoplasm of other parts of uterus; Z79.4 Long term (current) use of insulin; Z79.82 Long term (current) use of aspirin; Z82.49 Family history of ischemic heart disease and other diseases of the circulatory system
CPT/HCPCS: 71045; 71046; 75573; 80048; 80053; 80061; 81003; 81015; 82330; 82565; 82805; 82810; 82947; 82962; 83036; 83735; 83880; 83930; 83935; 84132; 84300; 84302; 84484; 84520; 85014; 85018; 85025; 85027; 85049; 85610; 85730; 86850; 86900; 86901; 86920; 87070; 87077; 87086; 87147; 88305; 88311; 93005; 93312; 93320; 93325; 93880; 93970; 94002; 94060; 94640; 97116; 97163; 97167; 97530; 97535; P9016; P9045; P9047; Q9967

== ENCOUNTER → 2024-09-18 14:07 | Emergency (ER) | payer MEDICARE, SELFPAY ==
[2024-09-18 14:21] VITALS: BP 138/60; BMI 38.3
[2024-09-18 14:48] LABS: Hematocrit 29.3 % (37.0-47.0); Hemoglobin 9.7 g/dL (12.0-16.0); Mean Corp Hgb Conc. 33.1 g/dL (33.0-37.0); Mean Corpuscular Volume 89.1 fL (81.0-99.0); Nucleated Red Blood Cells % 0 %; Platelet Count 454 10^3/uL (130-400); Red Cell Dist. Width 15.4 % (11.5-14.5)
[2024-09-18 15:00] VITALS: BP 110/54
--- NOTE | 2024-09-18 15:13 | ED.GENMED ---
History of Present Illness
General
Chief Complaint: Heart Rate Problem
Source: patient and records
Exam Limitations: none
Time Seen by Provider: 09/18/24 14:28
Nursing documentation reviewed up to this point in time: agreed with
History of Present Illness
History of Present Illness:
74-year-old female recent cardiac surgery recovering at [place], been there for for 5 days diagnosed with pneumonia yesterday started on Augmentin felt short of breath with rapid heart rates today at physical therapy, treating physicians at [place]
decided to send her here to rule out PE does not appear to be anticoagulated, when I evaluated her she is resting comfortably states she does feel fatigued heart rate in the 80s to 90s, looks to be sinus, pulse ox 100% on room air
Review of Systems
Review of Systems
All Other Systems: Not applicable
Constitutional: Reports fatigue; Denies fever
Respiratory: Reports trouble breathing; Denies cough
Cardiac: Denies chest pain or diaphoresis
ABD/GI: Reports no symptoms
: Reports no symptoms
Neurological: Reports weakness
Endocrine: Reports no symptoms
Phy Exam
Physical Exam
Physical Exam:
Physical Exam
General: 74-year-old female cooperative,
Neck: No jaundice
Heart: Regular healing median sternotomy scar
Lungs: Slightly diminished breath sounds bilateral
Abdomen: Soft nontender
Neuro: alert and oriented. no focal neurological deficits
Skin: no rash
Psychiatric: well kept. interactive and cooperative
Extremities: Lower extremity teds stockings graft site clean dry and intact left lower extremity
Sepsis
Sepsis Screening
Sepsis Assessment: Sepsis Ruled Out
Sepsis Screen
Sepsis Screen: Sepsis Ruled Out
Date: 09/18/24
Time: 19:18
Course
Orders/Labs/Results
Orders:
Orders
09/18/24 14:26
EKG [Electrocardiogram (*1)] Urgent
Reason for Study: Tachycardia
09/18/24 14:27
EKG- Treatment ONCE
09/18/24 14:40
CMP [Comprehensive Metabolic Panel] Urgent
Complete Blood Count/With Diff Urgent
Free T4 Urgent
Magnesium Urgent
TSH Reflex To Free T4 Urgent
09/18/24 14:58
Diphenhydramine [Benadryl] 50 mg IV NOW STA
Hydrocortisone Sod Succinate [Solu-Cortef] 100 mg IV NOW STA
09/18/24 14:59
CT Chest PE Study Urgent
Comment:
Reason For Exam: post op sob-getting prep for contrast allery
09/18/24 15:02
Diphenhydramine [Benadryl] 50 mg IV NOW STA
09/18/24 18:06
Ondansetron Injectable [Zofran] 4 mg IV NOW STA
Abnormal Lab Results
09/18/24
14:40
WBC 12.8 H 10^3/uL
(4.8-10.8)
RBC 3.29 L 10^6/uL
(4.20-5.40)
Hgb 9.7 L g/dL
(12.0-16.0)
Hct 29.3 L %
(37.0-47.0)
RDW 15.4 H %
(11.5-14.5)
Plt Count 454 H 10^3/uL
(130-400)
Abs Immat Gran (auto) 0.1 H 10^3/uL
(0-0.05)
Absolute Neuts (auto) 10.6 H 10^3/uL
(1.4-6.5)
Absolute Lymphs (auto) 1.0 L 10^3/uL
(1.2-3.4)
Absolute Monos (auto) 0.8 H 10^3/uL
(0.1-0.6)
Neutrophils % 82.8 H %
(42.2-75.2)
Lymphocytes % 8.0 L %
(20.5-51.1)
Sodium 128 L mmol/L
(135-145)
Potassium 5.4 H mmol/L
(3.5-5.1)
BUN 21 H mg/dl
(7-17)
Glucose 172 H mg/dl
(70-99)
AST 41 H U/L
(14-36)
ALT 59 H U/L
(0-35)
Total Protein 5.8 L g/dl
(6.3-8.2)
Albumin 3.4 L g/dl
(3.5-5.0)
TSH (Reflex) 4.95 H uIU/ml
(0.47-4.68)
09/18/24 14:40
09/18/24 14:40
Vital Signs
Initial and Last Documented VS:
Initial Vital Signs
Temp Pulse Resp BP Pulse Ox
97.9 F 107 23 138/60 97
09/18/24 14:21 09/18/24 14:21 09/18/24 14:21 09/18/24 14:21 09/18/24 14:21
Last Documented Vital Signs
Temp Pulse Resp BP Pulse Ox
97.9 F 62 15 109/55 95
09/18/24 14:21 09/18/24 17:00 09/18/24 17:00 09/18/24 17:00 09/18/24 18:02
MDM/Problems Addressed
Differential Diagnosis Includes:
Pneumonia dehydration PE pleurisy postoperative pain AF effusion
MDM/Problems Addressed:
Shortness of breath
Chronic conditions affecting care: CAD
Acute Exacerbation and/or Progression of Chronic Illness:
Recent surgery
Acute Exacerbation and/or Progression of Chronic Illness: CAD
*Radiology
Radiology exam reviewed: radiology read reviewed
*Pulse Oximetry
SaO2: 97
Oxygen Mode of Delivery: Room air
Patient hypoxic: no
*EKG
Interpreted by ED Provider?: Yes
Interpretation: normal
Comparison EKG: no comparison EKG present
Heart Rate: 78
Rate: normal
Ischemia: non-specific ST changes
*Seed Pelleter Interpretation
Rate: normal
Interpretation: normal
Heart Rate: 78
Rhythm: sinus
*Critical Care Note
Total Time (30-74mins, 75-104mins- exclusive of procedures): Not Applicable
Data Reviewed
Review of Other/Old Records Reveals: Labs and Discharge Summary
Source: patient
Update Note
Update Note:
Update, allergies noted she is tachycardic from Benadryl by report reviewed with CAT scan looks like she did get Benadryl on a previous CAT scan, will premedicate with steroids and Benadryl as I believe any risk from this would be slight compared to
the benefit of diagnosing PE
Update labs noted hyponatremia and anemia appear subacute to chronic
CT report noted patient appears stable for transfer back to [place]
ED Attending Note
-
Portions of this chart may have been created with voice recognition software.� Occasional wrong word or��sound alike� substitutions may have occurred due to the inherent limitations of voice recognition software.
Discharge Plan
Departure
Patient Disposition: Acute Rehab Facility
Date of Disposition: 09/18/24
Time of Disposition: 19:17
Patient with high blood pressure during this ER visit?: No
Condition: Good
Covid-19: Not Applicable
Discharge Problem:
Shortness of breath
Instructions: Shortness of breath in adults - ED discharge instructions
Prescriptions:
No Action
aspirin 81 mg Tablet,Delayed Release (Dr/Ec)
81 mg PO DAILY
pantoprazole 40 mg Tablet,Delayed Release (Dr/Ec)
40 mg PO DAILY
cetirizine [Zyrtec] 10 mg Tablet
10 mg PO DAILYPRN PRN (Reason: ALLERGIES)
montelukast 10 mg Tablet
10 mg PO HS
atorvastatin [Lipitor] 80 mg tablet
80 mg PO HS Qty: 30 2RF
metoprolol succinate [Toprol XL] 25 mg tablet extended release 24 hr
25 mg PO DAILY Qty: 30 2RF
Theragen Tablet
1 tab PO DAILY Qty: 0
Rx Instructions:
on hold
cholecalciferol (vitamin D3) [Vitamin D3] 25 mcg (1,000 unit) Tablet
25 mcg PO DAILY
amiodarone [Pacerone] 200 mg Tablet
200 mg PO BID Qty: 0 0RF
Rx Instructions:
200 mg BID until 09/25/24, then 200 mg daily.
clopidogrel 75 mg Tablet
75 mg PO DAILY Qty: 0 0RF
ferrous sulfate [FeroSul] 325 mg (65 mg iron) Tablet
325 mg PO DAILY Qty: 0 0RF
acetaminophen 325 mg Tablet
650 mg PO Q6HPRN PRN (Reason: mild pain,headache,temp >101F ) Qty: 0 0RF
sennosides-docusate sodium 8.6-50 mg Tablet
1 tab PO BIDPRN PRN (Reason: Constipation) Qty: 0 0RF
ascorbic acid (vitamin C) [Vitamin C] 500 mg Tablet
500 mg PO DAILY Qty: 0 0RF
furosemide 40 mg Tablet
40 mg PO DAILY 7 Days Qty: 0 0RF
Rx Instructions:
on hold
potassium chloride 20 mEq Tablet,Er Particles/Crystals
20 meq PO DAILY 7 Days Qty: 7 0RF
Rx Instructions:
for seven days
levothyroxine [Synthroid] 50 mcg Tablet
50 mcg PO DAILY
bisacodyl [Dulcolax (bisacodyl)] 10 mg Suppository
10 mg MA DAILYPRN PRN (Reason: if no bm with oral bisacodyl)
bisacodyl [Dulcolax (bisacodyl)] 10 mg Suppository
10 mg MA HSPRN PRN (Reason: constiaption)
alum-mag hydroxide-simeth [Maalox] 200-200-20 mg/5 mL Suspension
30 ml PO DAILYPRN PRN (Reason: gerd)
clotrimazole [Lotrimin] 1 % Cream
1 applic TOPICAL BID
vitamin E 268 mg (400 unit) Capsule
268 mg PO DAILY
ipratropium bromide [Atrovent] 0.02 % Solution
2.5 ml INHALATION R Q6HPRN PRN (Reason: sob)
amoxicillin-pot clavulanate [Augmentin] 875-125 mg Tablet
1 tab PO BID
oxycodone 5 mg Tablet
5 mg PO Q6HPRN PRN (Reason: severe pains)
Belsano Cough Drops Lozenge
3.1 mg MUCOUS MEMBRANE Q4HPRN PRN (Reason: sore throat)
enoxaparin [Lovenox] 40 mg/0.4 mL Syringe
40 mg SC QPM
Visbiome 112.5 billion cell Capsule
1 cap PO DAILY
Patient Own Insulin Pump
1 sliding scale dose SC .VIA NOVOLOG
oxycodone 5 mg tablet
2.5 mg PO Q6HPRN PRN (Reason: moderate-severe pain unalleviated by acetaminophen)
guaifenesin 600 mg tablet extended release 12hr
1,200 mg PO BID
Referrals:
UNKNOWN - PT DOES,NOT KNOW [Family Provider]
Interventions
Interventions:
*General Assessment Last Done: 09/18/24 14:21
*Neglect/Abuse Screening Last Done: 09/18/24 14:21
*ED- Fall Risk Assessment Last Done: 09/18/24 14:21
*ED COVID-19 Vaccine History Last Done: 09/18/24 14:21
ED- Cardiac Assessment Last Done: 09/18/24 14:31
ED- Pulmonary Assessment Last Done: 09/18/24 14:31
Discharge Date and Time
Print Language: BURMESE
[2024-09-18 15:41] LABS: ALT (SGPT) 59 U/L (0-35); AST (SGOT) 41 U/L (14-36); Albumin 3.4 g/dl (3.5-5.0); Alkaline Phosphatase 82 U/L (38-126); Blood Urea Nitrogen 21 mg/dl (7-17); Calcium 9.2 mg/dl (8.4-10.2); Carbon Dioxide 25 mmol/L (22-30); Chloride 99 mmol/L (98-107); Estimated Creatinine Clearance 73 ml/min; Glucose 172 mg/dl (70-99); Magnesium 2.1 mg/dl (1.6-2.3); Potassium 5.4 mmol/L (3.5-5.1); Sodium 128 mmol/L (135-145); Total Protein 5.8 g/dl (6.3-8.2); eGFR > 60.00
[2024-09-18] MEDS: SOLU-CORTEF 100 MG IV (15:41)
[2024-09-18] MEDS: BENADRYL 50 MG IV (15:41)
[2024-09-18 17:00] VITALS: BP 109/55
--- NOTE | 2024-09-18 18:07 | EDRN ---
pt reports dizziness/nausea that was slightly relieved by sitting up in bed. provider notified and pending order for zofran
[2024-09-18] MEDS: ZOFRAN 4 MG IV (18:11)
[2024-09-18 19:00] VITALS: BP 136/63
== END ==
LOC: EMR 14:07
PROVIDERS: EMERGENCY PHYSICIAN Emergency Medicine
DX: R06.02 Shortness of breath (principal); I25.10 Atherosclerotic heart disease of native coronary artery without angina pectoris
CPT/HCPCS: 99284; 96374; 96375; 71275; 80053; 83735; 84439; 84443; 85025; 93005; Q9967

== ENCOUNTER → 2024-10-03 14:11 | Outpatient (REF) | payer MEDICARE, SELFPAY ==
[2024-10-03 15:37] LABS: Hematocrit 31.7 % (37.0-47.0); Hemoglobin 10.3 g/dL (12.0-16.0); Mean Corp Hgb Conc. 32.5 g/dL (33.0-37.0); Mean Corpuscular Volume 90.1 fL (81.0-99.0); Nucleated Red Blood Cells % 0 %; Platelet Count 346 10^3/uL (130-400); Red Cell Dist. Width 14.8 % (11.5-14.5)
[2024-10-03 15:44] LABS: Urine Character Clear (Clear)
[2024-10-03 16:04] LABS: Blood Urea Nitrogen 12 mg/dl (7-17); Calcium 9.2 mg/dl (8.4-10.2); Carbon Dioxide 26 mmol/L (22-30); Chloride 101 mmol/L (98-107); Glucose 122 mg/dl (70-99); Potassium 4.1 mmol/L (3.5-5.1); Sodium 133 mmol/L (135-145); eGFR > 60.00
[2024-10-03 16:17] LABS: Urine Squamous Cell >30 /LPF (Few); Urine Urothelial Cell 0-2 /LPF (FEW)
[2024-10-03 16:18] LABS: Urine White Cell 26-30 /HPF (0-5)
== END ==
LOC: RAD 14:11
PROVIDERS: ATTENDING PHYSICIAN Thoracic Surgery (Cardiothoracic Vascular Surgery); OTHER PHYSICIAN Internal Medicine
DX: I25.10 Atherosclerotic heart disease of native coronary artery without angina pectoris (principal); Z95.1 Presence of aortocoronary bypass graft; N39.0 Urinary tract infection, site not specified
CPT/HCPCS: 36415; 71046; 80048; 81003; 81015; 85025; 87086

== ENCOUNTER → 2024-10-08 14:29 | Outpatient (REF) | payer MEDICARE, SELFPAY ==
[2024-10-08 15:39] VITALS: BP 141/62; BP_SYST 86
[2024-10-08 16:13] VITALS: BP 138/82; BP_SYST 86
== END ==
LOC: RADI 14:29
PROVIDERS: ATTENDING PHYSICIAN Internal Medicine Hematology & Oncology; REFERRING PHYSICIAN Internal Medicine Cardiovascular Disease
DX: J90 Pleural effusion, not elsewhere classified (principal)
CPT/HCPCS: 32555; 71045

== ENCOUNTER → 2024-10-16 10:27 | Outpatient (REF) | payer MEDICARE, SELFPAY ==
[2024-10-16 14:00] VITALS: BP 132/51; BP_SYST 83
[2024-10-16 14:15] VITALS: BP 121/46; BP_SYST 81
== END ==
LOC: RAD 10:27
PROVIDERS: ATTENDING PHYSICIAN Thoracic Surgery (Cardiothoracic Vascular Surgery); REFERRING PHYSICIAN Internal Medicine Cardiovascular Disease
DX: Z95.1 Presence of aortocoronary bypass graft (principal); J90 Pleural effusion, not elsewhere classified
CPT/HCPCS: 32555; 71045; 71046

== ENCOUNTER → 2024-10-24 14:59 | Outpatient (REF) | payer MEDICARE, SELFPAY ==
[2024-10-24 14:54] VITALS: BP 134/81; BP_SYST 74
[2024-10-24 15:26] VITALS: BP 119/73
== END ==
LOC: RADI 14:59
PROVIDERS: ATTENDING PHYSICIAN Thoracic Surgery (Cardiothoracic Vascular Surgery)
DX: J90 Pleural effusion, not elsewhere classified (principal)
CPT/HCPCS: 32555; 71045; 71046

== ENCOUNTER → 2024-10-31 12:09 | Outpatient (REF) | payer MEDICARE, SELFPAY | LOC: RAD 12:09 | PROVIDERS: ATTENDING PHYSICIAN Nurse Practitioner Acute Care | DX: J90 Pleural effusion, not elsewhere classified (principal) | CPT/HCPCS: 71046 ==

== ENCOUNTER → 2024-11-27 12:41 | Outpatient (REF) | payer MEDICARE, SELFPAY | LOC: RAD 12:41 | PROVIDERS: ATTENDING PHYSICIAN Thoracic Surgery (Cardiothoracic Vascular Surgery) | DX: J90 Pleural effusion, not elsewhere classified (principal) | CPT/HCPCS: 71046 ==

== ENCOUNTER 2024-12-02 11:46 | Outpatient (RCR) | payer MEDICARE, SELFPAY ==
[2024-11-06 10:57] LABS: Glucose - Point of Care 138 mg/dl (70-99)
[2024-11-06 11:34] LABS: Glucose - Point of Care 119 mg/dl (70-99)
[2024-11-11 14:58] LABS: Glucose - Point of Care 194 mg/dl (70-99)
[2024-11-11 15:54] LABS: Glucose - Point of Care 138 mg/dl (70-99)
[2024-11-13 14:57] LABS: Glucose - Point of Care 269 mg/dl (70-99)
[2024-11-13 15:56] LABS: Glucose - Point of Care 189 mg/dl (70-99)
[2024-11-15 13:25] LABS: Glucose - Point of Care 127 mg/dl (70-99)
[2024-11-15 14:00] LABS: Glucose - Point of Care 115 mg/dl (70-99)
[2024-11-20 13:08] LABS: Glucose - Point of Care 182 mg/dl (70-99)
[2024-11-20 14:07] LABS: Glucose - Point of Care 121 mg/dl (70-99)
[2024-11-22 10:56] LABS: Glucose - Point of Care 145 mg/dl (70-99)
[2024-11-22 12:02] LABS: Glucose - Point of Care 100 mg/dl (70-99)
[2024-11-25 11:15] LABS: Glucose - Point of Care 99 mg/dl (70-99)
[2024-11-25 12:16] LABS: Glucose - Point of Care 103 mg/dl (70-99)
[2024-11-27 11:03] LABS: Glucose - Point of Care 226 mg/dl (70-99)
[2024-11-27 12:03] LABS: Glucose - Point of Care 143 mg/dl (70-99)
[2024-11-29 11:00] LABS: Glucose - Point of Care 124 mg/dl (70-99)
[2024-11-29 12:09] LABS: Glucose - Point of Care 125 mg/dl (70-99)
[2024-12-02 11:12] LABS: Glucose - Point of Care 143 mg/dl (70-99)
[2024-12-02 12:13] LABS: Glucose - Point of Care 89 mg/dl (70-99)
== END 2024-12-02 23:59 | disposition home or self-care (01) ==
LOC: CRHB 11:46
PROVIDERS: ATTENDING PHYSICIAN Internal Medicine Cardiovascular Disease
DX: Z95.1 Presence of aortocoronary bypass graft (principal); Z95.4 Presence of other heart-valve replacement
CPT/HCPCS: 82962; G0422; G0423

== ENCOUNTER 2025-01-03 11:06 | Outpatient (RCR) | payer MEDICARE, SELFPAY ==
[2024-12-13 11:02] LABS: Glucose - Point of Care 193 mg/dl (70-99)
[2024-12-13 12:06] LABS: Glucose - Point of Care 96 mg/dl (70-99)
[2024-12-13 12:22] LABS: Glucose - Point of Care 109 mg/dl (70-99)
[2024-12-16 11:08] LABS: Glucose - Point of Care 110 mg/dl (70-99)
[2024-12-16 12:09] LABS: Glucose - Point of Care 87 mg/dl (70-99)
[2024-12-16 12:13] LABS: Glucose - Point of Care 125 mg/dl (70-99)
[2024-12-16 12:29] LABS: Glucose - Point of Care 91 mg/dl (70-99)
[2024-12-18 13:10] LABS: Glucose - Point of Care 132 mg/dl (70-99)
[2024-12-18 14:12] LABS: Glucose - Point of Care 97 mg/dl (70-99)
[2024-12-18 15:39] LABS: Glucose - Point of Care 118 mg/dl (70-99)
[2024-12-20 10:59] LABS: Glucose - Point of Care 128 mg/dl (70-99)
[2024-12-20 12:02] LABS: Glucose - Point of Care 82 mg/dl (70-99)
[2024-12-20 12:18] LABS: Glucose - Point of Care 113 mg/dl (70-99)
[2024-12-23 11:08] LABS: Glucose - Point of Care 137 mg/dl (70-99)
[2024-12-23 12:27] LABS: Glucose - Point of Care 100 mg/dl (70-99)
[2024-12-25 11:01] LABS: Glucose - Point of Care 114 mg/dl (70-99)
[2024-12-25 12:11] LABS: Glucose - Point of Care 88 mg/dl (70-99)
[2024-12-25 12:29] LABS: Glucose - Point of Care 130 mg/dl (70-99)
[2024-12-27 10:59] LABS: Glucose - Point of Care 136 mg/dl (70-99)
[2024-12-27 12:05] LABS: Glucose - Point of Care 113 mg/dl (70-99)
[2025-01-01 11:04] LABS: Glucose - Point of Care 212 mg/dl (70-99)
[2025-01-01 12:02] LABS: Glucose - Point of Care 121 mg/dl (70-99)
[2025-01-03 10:59] LABS: Glucose - Point of Care 163 mg/dl (70-99)
[2025-01-03 12:03] LABS: Glucose - Point of Care 128 mg/dl (70-99)
== END 2025-01-03 23:59 | disposition home or self-care (01) ==
LOC: CRHB 11:06
PROVIDERS: ATTENDING PHYSICIAN Internal Medicine Cardiovascular Disease
DX: Z95.1 Presence of aortocoronary bypass graft (principal); Z95.4 Presence of other heart-valve replacement; I25.10 Atherosclerotic heart disease of native coronary artery without angina pectoris
CPT/HCPCS: 82962; G0422; G0423

== ENCOUNTER 2025-02-05 11:49 | Outpatient (RCR) | payer MEDICARE, SELFPAY ==
[2025-01-06 11:12] LABS: Glucose - Point of Care 153 mg/dl (70-99)
[2025-01-06 12:28] LABS: Glucose - Point of Care 82 mg/dl (70-99)
[2025-01-06 12:45] LABS: Glucose - Point of Care 128 mg/dl (70-99)
[2025-01-08 11:05] LABS: Glucose - Point of Care 131 mg/dl (70-99)
[2025-01-08 12:12] LABS: Glucose - Point of Care 97 mg/dl (70-99)
[2025-01-10 11:09] LABS: Glucose - Point of Care 132 mg/dl (70-99)
[2025-01-10 12:11] LABS: Glucose - Point of Care 91 mg/dl (70-99)
[2025-01-10 12:40] LABS: Glucose - Point of Care 118 mg/dl (70-99)
[2025-01-13 11:12] LABS: Glucose - Point of Care 112 mg/dl (70-99)
[2025-01-13 12:22] LABS: Glucose - Point of Care 122 mg/dl (70-99)
[2025-01-15 11:13] LABS: Glucose - Point of Care 150 mg/dl (70-99)
[2025-01-15 12:17] LABS: Glucose - Point of Care 97 mg/dl (70-99)
[2025-01-15 12:44] LABS: Glucose - Point of Care 121 mg/dl (70-99)
[2025-01-22 09:23] LABS: Glucose - Point of Care 153 mg/dl (70-99)
[2025-01-22 10:24] LABS: Glucose - Point of Care 177 mg/dl (70-99)
[2025-01-24 11:00] LABS: Glucose - Point of Care 147 mg/dl (70-99)
[2025-01-24 12:04] LABS: Glucose - Point of Care 112 mg/dl (70-99)
[2025-01-27 10:58] LABS: Glucose - Point of Care 140 mg/dl (70-99)
[2025-01-27 12:12] LABS: Glucose - Point of Care 118 mg/dl (70-99)
[2025-02-05 11:02] LABS: Glucose - Point of Care 171 mg/dl (70-99)
[2025-02-05 12:04] LABS: Glucose - Point of Care 95 mg/dl (70-99)
== END 2025-02-05 23:59 | disposition home or self-care (01) ==
LOC: CRHB 11:49
PROVIDERS: ATTENDING PHYSICIAN Internal Medicine Cardiovascular Disease
DX: I25.10 Atherosclerotic heart disease of native coronary artery without angina pectoris (principal); Z95.1 Presence of aortocoronary bypass graft; Z95.4 Presence of other heart-valve replacement
CPT/HCPCS: 82962; 93797; 93798; G0422; G0423